=== PATIENT | female | born 1960 | race Asian ===

== ENCOUNTER 2020-11-12 12:03 | Emergency (ER) | payer MEDICAID ==
[~2020-11-12] VITALS: Ht 160 cm; Wt 43.1 kg
--- NOTE | 2020-11-12 12:27 | Emergency Room Report ---
History of Present Illness General Chief Complaint: Dyspnea/Respdistress Source: Medical Record, EMS (Chidi Go MD) Present Illness HPI Disclaimer: Please note that this report is being documented using DRAGON technology. This can lead to erroneous entry secondary to incorrect interpretation by the dictating instrument. HPI: Is a 60-year-old female history of ESRD on hemodialysis presenting by ambulance for dialysis treatment. The patient reportedly Covid positive and as a result of which has not gone to dialysis for 2 sessions. She reports mild tightness in the chest. No hypoxia noted. No other discomfort per patient. No reports of fever, vomiting or diarrhea. No other complaints at this time. 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 COVID-19 Screening: Positive COVID-19 COVID-19 Testing Source: [facility] (Chidi oG MD) Patient History Last Menstrual Period: na (Chidi Go MD) Nursing Documentation-PMH Past Medical History: No History, Except For Hx Hypertension: Yes Hx Dialysis: Yes (Chidi Go MD) Review of Systems All Other Systems: negative except mentioned in HPI (Chidi Go MD) Physical Exam Vital Signs Date Time Temp Pulse Resp B/P (MAP) Pulse Ox O2 Delivery O2 Flow Rate FiO2 11/12/20 12:03 97.5 78 22 200/98 (132) 98 Room Air General: Awake and alert, no acute distress, hypertensive HEENT: NC/AT. 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 S1 and S2 normal. No murmur appreciated Resp: Normal work of breathing. No cough, wheezing or crackles appreciated Abdomen: Abdomen is soft, nondistended. Nontender Skin: Intact. No abrasions, laceration or rash over the exposed skin MSK: Normal tone and bulk. Moving all extremities. No obvious deformity. Neuro: Awake and alert. Mentating appropriately. (Chidi Go MD) Medical Decision Making Diagnostic Impression: Primary Impression: ESRD on dialysis ER Course 60-year-old female history of ESRD on hemodialysis presents after missing 2 dialysis sessions. Patient reportedly Covid positive denies significant respiratory complaints at this time. She arrives hypertensive but in no acute distress. Nitropaste ordered. Will obtain labs and chest x-ray arrange for admission to obtain dialysis. Labs show potassium 5.1. BUN and creatinine elevated consistent with end-stage renal disease. Blood pressure improved after application of nitro paste. Chest x-ray does not show obvious infiltrate or significant vascular congestion. No effusions. Troponin negative. BNP elevated again consistent with ESRD. COVID- 19 rapid swab is negative today. Laboratory Tests Test 11/12/20 12:57 White Blood Count 7.5 K/UL (4.8-10.8) Red Blood Count 4.80 M/UL (4.20-5.40) Hemoglobin 10.1 G/DL (12.0-16.0) L Hematocrit 33.7 % (37.0-47.0) L Mean Corpuscular Volume 70 FL (80-99) L Mean Corpuscular Hemoglobin 21.0 PG (27.0-31.0) L Mean Corpuscular Hemoglobin Concent 29.9 G/DL (32.0-36.0) L Red Cell Distribution Width 22.0 % (11.6-14.8) H Platelet Count 157 K/UL (150-450) Mean Platelet Volume 9.5 FL (6.5-10.1) Neutrophils (%) (Auto) 75.5 % (45.0-75.0) H Lymphocytes (%) (Auto) 12.8 % (20.0-45.0) L Monocytes (%) (Auto) 7.3 % (1.0-10.0) Eosinophils (%) (Auto) 3.0 % (0.0-3.0) Basophils (%) (Auto) 1.4 % (0.0-2.0) Prothrombin Time 10.8 SEC (9.30-11.50) Prothrombin Time INR 1.0 (0.9-1.1) Activated Partial Thromboplast Time 32 SEC (23-33) Sodium Level 138 MMOL/L (136-145) Potassium Level 5.1 MMOL/L (3.5-5.1) Chloride Level 109 MMOL/L (98-107) H Carbon Dioxide Level 18 MMOL/L (21-32) L Anion Gap 11 mmol/L (5-15) Blood Urea Nitrogen 51 mg/dL (7-18) H Creatinine 3.6 MG/DL (0.55-1.30) H Estimated Glomerular Filtration Rate 12.9 mL/min (>60) Glucose Level 370 MG/DL (74-106) H Calcium Level 7.3 MG/DL (8.5-10.1) L Total Bilirubin 0.4 MG/DL (0.2-1.0) Aspartate Amino Transferase (AST) 32 U/L (15-37) Alanine Aminotransferase (ALT) 48 U/L (12-78) Alkaline Phosphatase 592 U/L (46-116) H Troponin I 0.002 ng/mL (0.000-0.056) Pro-B-Type Natriuretic Peptide 15109 pg/mL (0-125) H Total Protein 6.3 G/DL (6.4-8.2) L Albumin 2.0 G/DL (3.4-5.0) L Globulin 4.3 g/dL Albumin/Globulin Ratio 0.5 (1.0-2.7) L Microbiology Date/Time Source Procedure Growth Status 11/12/20 12:57 Nasopharynx SARS-CoV-2 RdRp Gene Assay - Final Complete (Chidi Go MD) ER Course Hospital Course 60-year-old female referred for dialysis. Missed 2 dialysis sessions. Recently diagnosed with Covid Patient initially seen and evaluated by Dr go; please see his note for full history and physical Clinical course labs reviewed- BUN/Cr elevated. K 5.1. no leukocytosis, hemoglobin/hematocrit stable trop negative EKG - NSR no acute ischemic changes interpreted by me Chest [id number], no fluid overload, dialysis catheter in chest Rapid Covid negative discussed with PMD from facility. Agrees that patient does not require admission at this time. In light of current pandemic it would be beneficial to discharge patient back to facility and she will receive dialysis in outpatient setting. I agree with this assessment I. I feel this is a highly complex case requiring extensive working including EKG/Rhythm strip, Xray/CT/US, Blood/urine lab work, repeat exams while in ED, and administration of strong opiates/narcotics for pain control, admission to hospital or close patient follow up. Diagnosis -ESRD on dialysis discharged to assisted living. f/u PMD. return to ED if symptoms recur/worsen Laboratory Tests Test 11/12/20 12:57 White Blood Count 7.5 K/UL (4.8-10.8) Red Blood Count 4.80 M/UL (4.20-5.40) Hemoglobin 10.1 G/DL (12.0-16.0) L Hematocrit 33.7 % (37.0-47.0) L Mean Corpuscular Volume 70 FL (80-99) L Mean Corpuscular Hemoglobin 21.0 PG (27.0-31.0) L Mean Corpuscular Hemoglobin Concent 29.9 G/DL (32.0-36.0) L Red Cell Distribution Width 22.0 % (11.6-14.8) H Platelet Count 157 K/UL (150-450) Mean Platelet Volume 9.5 FL (6.5-10.1) Neutrophils (%) (Auto) 75.5 % (45.0-75.0) H Lymphocytes (%) (Auto) 12.8 % (20.0-45.0) L Monocytes (%) (Auto) 7.3 % (1.0-10.0) Eosinophils (%) (Auto) 3.0 % (0.0-3.0) Basophils (%) (Auto) 1.4 % (0.0-2.0) Prothrombin Time 10.8 SEC (9.30-11.50) Prothromb Time International Ratio 1.0 (0.9-1.1) Activated Partial Thromboplast Time 32 SEC (23-33) Sodium Level 138 MMOL/L (136-145) Potassium Level 5.1 MMOL/L (3.5-5.1) Chloride Level 109 MMOL/L (98-107) H Carbon Dioxide Level 18 MMOL/L (21-32) L Anion Gap 11 mmol/L (5-15) Blood Urea Nitrogen 51 mg/dL (7-18) H Creatinine 3.6 MG/DL (0.55-1.30) H Estimat Glomerular Filtration Rate 12.9 mL/min (>60) Glucose Level 370 MG/DL (74-106) H Calcium Level 7.3 MG/DL (8.5-10.1) L Total Bilirubin 0.4 MG/DL (0.2-1.0) Aspartate Amino Transf (AST/SGOT) 32 U/L (15-37) Alanine Aminotransferase (ALT/SGPT) 48 U/L (12-78) Alkaline Phosphatase 592 U/L (46-116) H Troponin I 0.002 ng/mL (0.000-0.056) Pro-B-Type Natriuretic Peptide 04561 pg/mL (0-125) H Total Protein 6.3 G/DL (6.4-8.2) L Albumin 2.0 G/DL (3.4-5.0) L Globulin 4.3 g/dL Albumin/Globulin Ratio 0.5 (1.0-2.7) L (Romario Atkinson MD) EKG Diagnostic Results Troponin ordered: Yes When was troponin ordered?: Nov 12, 2020 EKG Time: 12:54 Rate: normal Rhythm: NSR ST Segments: no acute changes Other Impression Sinus rhythm, normal axis, normal intervals, no ST segment changes. No hyperacute T waves noted (Chidi Go MD) Troponin ordered: Yes Rate: normal Rhythm: NSR ST Segments: no acute changes ASA given to the pt in ED: No (Romario Atkinson MD) Rhythm Strip Diag. Results Rhythm Strip Time: 12:54 EP Interpretation: yes Rate: 60s Rhythm: NSR, no PVC's, no ectopy (Chidi Go MD) EP Interpretation: yes Rhythm: NSR, no PVC's, no ectopy (Romario Atkinson MD) Chest X-Ray Diagnostic Results Chest X-Ray Diagnostic Results : Chest X-Ray Ordered: Yes # of Views/Limited/Complete: 1 View Indication: Chest Pain EP Interpretation: Yes Interpretation: no consolidation, no effusion, no pneumothorax, no acute cardiopulmonary disease, other - Dialysis catheter right chest appears in place Impression: No acute disease Electronically Signed by: Electronically signed by Dr. Chidi Go MD (Chidi Go MD) Chest X-Ray Diagnostic Results : Chest X-Ray Ordered: Yes # of Views/Limited/Complete: 1 View Indication: Other EP Interpretation: Yes Interpretation: no consolidation, no effusion, no pneumothorax, no acute cardiopulmonary disease, other - dialysis catheter in chest Impression: No acute disease Electronically Signed by: Electronically signed by Romario Atkinson MD (Romario Atkinson MD) Last Vital Signs Date Time Temp Pulse Resp B/P (MAP) Pulse Ox O2 Delivery O2 Flow Rate FiO2 11/12/20 12:03 97.5 78 22 200/98 (132) 98 Room Air (Chidi Go MD) Status: improved (Romario Atkinson MD) Disposition: ASSISTED LIVING Condition: Stable Chidi Go MD Nov 12, 2020 12:27 Romario Atkinson MD Nov 12, 2020 18:25
[2020-11-12] MEDS ORDERED: Nitroglycerin 2% oint pkt TOPIC ONE (12:30)
[2020-11-12] MEDS ORDERED: DOCUSATE SODIU100 MG ORAL (12:34)
[2020-11-12] MEDS ORDERED: LIDODERM700 M1 TOPIC (12:34)
[2020-11-12] MEDS ORDERED: TRAZODONE HCL50 MG ORAL (12:34)
[2020-11-12] MEDS ORDERED: LACTULOSE20 GM/301 ORAL (12:34)
[2020-11-12] MEDS ORDERED: NEPHROVITE1 TAB ORAL (12:34)
[2020-11-12] MEDS ORDERED: GABAPENTIN100 MG ORAL (12:34)
[2020-11-12] MEDS ORDERED: CRANBERRY400 MG PO (12:34)
[2020-11-12] MEDS ORDERED: PANTOPRAZOLE SO40 MG ORAL (12:34)
[2020-11-12] MEDS ORDERED: SYNTHROID88 MCG ORAL (12:34)
[2020-11-12] MEDS ORDERED: NORCO 5-325 TA1 EAC1 ORAL (12:34)
--- NOTE | 2020-11-12 12:40 | NUR ---
ED Nurse Note: Pt brought by BLS due to missing dialysis. pt is A&O3, verbal , and awake. pt last dialysis was since 11/06/2020. pt is covid + in the shelter. Pt has no sob, fever, and cough at the moment. pt is on monitor; vitals are stable. Iv established; blood sent to the lab.
[2020-11-12 13:13] LABS: BASOPHILS % (AUTO) 1.4 % (0.0-2.0); HEMATOCRIT 33.7 % (37.0-47.0); HEMOGLOBIN 10.1 G/DL (12.0-16.0); LYMPHOCYTES % (AUTO) 12.8 % (20.0-45.0); MEAN CORPUSCULAR VOLUME 70 FL (80-99); MONOCYTES % (AUTO) 7.3 % (1.0-10.0); NEUTROPHILS % (AUTO) 75.5 % (45.0-75.0); PLATELET COUNT 157 K/UL (150-450); WHITE BLOOD COUNT 7.5 K/UL (4.8-10.8)
[2020-11-12 13:22] VITALS: BP 173/98
[2020-11-12 13:28] LABS: CALCIUM 7.3 MG/DL (8.5-10.1); CREATININE 3.6 MG/DL (0.55-1.30); POTASSIUM 5.1 MMOL/L (3.5-5.1)
[2020-11-12 13:38] LABS: ALBUMIN/GLOBULIN RATIO 0.5 (1.0-2.7); BILIRUBIN,TOTAL 0.4 MG/DL (0.2-1.0)
[2020-11-12] MEDS ORDERED: Insulin Human Regular 100units/ml 3ml IV ONE (14:00)
--- NOTE | 2020-11-12 16:12 | NUR ---
ED Nurse Note: REPORT GIVEN TO MICH TSE
--- NOTE | 2020-11-12 17:05 | Diagnostic Imaging Report ---
Indication: Shortness of breath Technique: One view of the chest Comparison: none Findings: Lung and pleural spaces are clear. The heart is upper limits of normal in size. There is a right jugular tunneled dialysis catheter. Impression: No acute process
[2020-11-12 19:58] VITALS: BP 164/93
--- NOTE | 2020-11-12 20:00 | NUR ---
ED Nurse Note: pt resting in room awaiting trasnport back to [facility]. pt care assummed. pt denies increased dyspnea or new c/o tolerates htn meds well.
[2020-11-12 22:06] VITALS: BP 158/71
--- NOTE | 2020-11-12 22:08 | NUR ---
Note amyone in EDM - 11/12/20 at 2211 by CHANDLER ED Nurse Note: Pt cleared by health care Provider for discharge. DC instructions/prescription was given and explained to pt and verbalized understanding of teachings. All medical devices such as ID band removed. Pt is AAO x4, ambulatory and left with all personal belongings.
--- NOTE | 2020-11-12 22:11 | NUR ---
ED Nurse Note: Pt cleared by health care Provider for discharge. DC instructions/prescription was given and explained to pt and verbalized understanding of teachings. All medical devices such as ID band removed. Pt is alert upon dc back to [facility].
== END 2020-11-12 22:15 | disposition home or self-care (01) ==
LOC: EDBD → EMR 12:41
DX: I12.0 Hypertensive chronic kidney disease with stage 5 chronic kidney disease or end stage renal disease (principal); N18.6 End stage renal disease; Z99.2 Dependence on renal dialysis; Z88.5 Allergy status to narcotic agent; Z88.6 Allergy status to analgesic agent; Z86.16 Personal history of COVID-19
CPT/HCPCS: 36415; 71045; 80053; 83880; 84484; 85025; 85610; 85730; 93005; 96374; 96375; 96376; J0360; J1815; U0002; Z7502; 99284

== ENCOUNTER 2020-11-14 10:24 | Inpatient (IN) | payer MEDICAID ==
[~2020-11-14] VITALS: Ht 160 cm; Wt 40.8 kg
[~2020-11-14 10:24] MED LIST: CRANBERRY400 MG PO; DOCUSATE SODIU100 MG ORAL; GABAPENTIN100 MG ORAL; LACTULOSE20 GM/301 ORAL; LIDODERM700 M1 TOPIC; NEPHROVITE1 TAB ORAL; NORCO 5-325 TA1 EAC1 ORAL; PANTOPRAZOLE SO40 MG ORAL; SYNTHROID88 MCG ORAL; TRAZODONE HCL50 MG ORAL
[2020-11-14 10:27] VITALS: BP 234/110
--- NOTE | 2020-11-14 10:27 | NUR ---
ED Nurse Note: Pt BIBA RA58 from [facility] c/o SOB and hypotension. Per EMS, Pt was desatting to 88% RA, placed on NRB 15L, O2 improved to 94%. BP at the scene was 76/43. Pt was tested positive for Covid last 10/26/20. Pt missed her dialysis today, noted with permacath on right upper chest. AAox4, verbally responsive. Afebrile. Placed on whitewasher. ERMD at bedside. Isolation precaution is in place.
[2020-11-14] MEDS ORDERED: TRAMADOL HCL50 MG ORAL (10:36)
[2020-11-14] MEDS ORDERED: DULCOLAX10 MG RC (10:36)
[2020-11-14] MEDS ORDERED: MILK OF MA400 MG/51 ORAL (10:36)
[2020-11-14] MEDS ORDERED: ASPIRIN81 MG ORAL (10:38)
[2020-11-14] MEDS ORDERED: MIDODRINE HCL5 MG ORAL (10:40)
[2020-11-14] MEDS ORDERED: ADALAT20 MG ORAL (10:40)
--- NOTE | 2020-11-14 10:43 | Emergency Room Report ---
History of Present Illness General Chief Complaint: Dyspnea/Respdistress Source: Medical Record (Anita Mckeon DO) Present Illness HPI patient presents by paramedics from SNF with reports of hypotension and missed dialysis patient herself is a difficult historian and HPI remains limited appears patient wad diagnosed with covid 10/26 and transferred to facility after stabilization no reports of vomiting or diarrhea pt due for dialysis today unknown regarding fever or cough (Anita Mckeon DO) Allergies: Coded Allergies: ACETAMINOPHEN (Verified Allergy, Unknown, 11/12/20) MORPHINE (Verified Allergy, Unknown, 11/12/20) COVID-19 Screening Contact w/high risk pt: No Experienced COVID-19 symptoms?: Yes 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-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 COVID-19 Screening: Positive COVID-19 COVID-19 Testing Source: [facility] (Anita Mckeon DO) Patient History Limited by: medical condition Past Medical History: see triage record Pertinent Family History: unable to obtain Reviewed Nursing Documentation: PMH: Agreed; PSxH: Agreed (Anita Mckeon DO) Nursing Documentation-PMH Past Medical History: No History, Except For Hx Hypertension: Yes Hx Dialysis: Yes (Anita Mckeon DO) Review of Systems All Other Systems: limited Narrative limited secondary to patient ability to provide appropriate history (Anita Mckeon DO) Physical Exam Vital Signs Date Time Temp Pulse Resp B/P (MAP) Pulse Ox O2 Delivery O2 Flow Rate FiO2 11/14/20 10:20 99.1 104 24 76/43 (54) 94 Non-Rebreather 15.0 Sp02 EP Interpretation: reviewed, normal General Appearance: no apparent distress Head: normocephalic, atraumatic Eyes: bilateral eye PERRL, bilateral eye EOMI ENT: hearing grossly normal, EOM grossly intact Neck: supple Respiratory: no respiratory distress, no retraction, other - fine crackles both lower lobes Cardiovascular #1: regular rate, rhythm, no edema Gastrointestinal: non tender, soft Genitourinary: no CVA tenderness Musculoskeletal: other - moving both upper extremity equally Neurologic: other - patient is awake, responsive, but agitated and not following commands Psychiatric: anxious Skin: no rash, palpation normal Lymphatic: no adenopathy (Anita Mckeon DO) Procedures Critical Care Time Critical Care Time 50 minutes critical care, concerning presentation concern for cardiopulmonary arrest and respiratory failure multiple reevaluations not including procedural time (Anita Mckeon DO) Medical Decision Making Diagnostic Impression: Primary Impression: ESRD on dialysis Additional Impressions: COVID-19 SOB (shortness of breath) ER Course Patient is a fairly complex patient with multiple differential to consideration including but not limited to cardiac cardiopulmonary and vascular emergencies Given the current circumstances COVID-19 also considered Patient's test is positive and x-ray does show patchy infiltrates bilaterally Patient has been diagnosed previously with Covid at this time remains hypertensive And required acute intervention and admitted for further care Labs Test 11/14/20 10:50 11/15/20 04:30 White Blood Count 9.9 K/UL (4.8-10.8) 6.2 K/UL (4.8-10.8) Red Blood Count 4.53 M/UL (4.20-5.40) 4.34 M/UL (4.20-5.40) Hemoglobin 9.6 G/DL (12.0-16.0) 9.2 G/DL (12.0-16.0) Hematocrit 32.0 % (37.0-47.0) 30.4 % (37.0-47.0) Mean Corpuscular Volume 71 FL (80-99) 70 FL (80-99) Mean Corpuscular Hemoglobin 21.1 PG (27.0-31.0) 21.2 PG (27.0-31.0) Mean Corpuscular Hemoglobin Concent 29.9 G/DL (32.0-36.0) 30.2 G/DL (32.0-36.0) Red Cell Distribution Width 22.4 % (11.6-14.8) 21.6 % (11.6-14.8) Platelet Count 176 K/UL (150-450) 129 K/UL (150-450) Mean Platelet Volume 7.5 FL (6.5-10.1) 9.1 FL (6.5-10.1) Neutrophils (%) (Auto) 71.0 % (45.0-75.0) 73.9 % (45.0-75.0) Lymphocytes (%) (Auto) 16.6 % (20.0-45.0) 20.4 % (20.0-45.0) Monocytes (%) (Auto) 7.8 % (1.0-10.0) 1.3 % (1.0-10.0) Eosinophils (%) (Auto) 2.2 % (0.0-3.0) 0.1 % (0.0-3.0) Basophils (%) (Auto) 2.4 % (0.0-2.0) 4.3 % (0.0-2.0) Prothrombin Time 10.9 SEC (9.30-11.50) Prothromb Time International Ratio 1.0 (0.9-1.1) Activated Partial Thromboplast Time 26 SEC (23-33) Sodium Level 138 MMOL/L (136-145) 138 MMOL/L (136-145) Potassium Level 5.2 MMOL/L (3.5-5.1) 4.6 MMOL/L (3.5-5.1) Chloride Level 109 MMOL/L (98-107) 105 MMOL/L (98-107) Carbon Dioxide Level 17 MMOL/L (21-32) 27 MMOL/L (21-32) Anion Gap 12 mmol/L (5-15) 6 mmol/L (5-15) Blood Urea Nitrogen 48 mg/dL (7-18) 33 mg/dL (7-18) Creatinine 3.7 MG/DL (0.55-1.30) 3.0 MG/DL (0.55-1.30) Estimat Glomerular Filtration Rate 12.5 mL/min (>60) 16.0 mL/min (>60) Glucose Level 146 MG/DL (74-106) 108 MG/DL (74-106) Lactic Acid Level 0.50 mmol/L (0.4-2.0) Calcium Level 7.5 MG/DL (8.5-10.1) 7.2 MG/DL (8.5-10.1) Total Bilirubin 0.4 MG/DL (0.2-1.0) 0.8 MG/DL (0.2-1.0) Aspartate Amino Transf (AST/SGOT) 34 U/L (15-37) 23 U/L (15-37) Alanine Aminotransferase (ALT/SGPT) 44 U/L (12-78) 37 U/L (12-78) Alkaline Phosphatase 633 U/L (46-116) 574 U/L (46-116) Total Creatine Kinase 76 U/L (26-308) Creatine Kinase MB 4.3 NG/ML (0.0-3.6) Creatine Kinase MB Relative Index 5.6 Troponin I 0.012 ng/mL (0.000-0.056) 0.026 ng/mL (0.000-0.056) Pro-B-Type Natriuretic Peptide 87010 pg/mL (0-125) 88977 pg/mL (0-125) Total Protein 6.9 G/DL (6.4-8.2) 6.2 G/DL (6.4-8.2) Albumin 2.1 G/DL (3.4-5.0) 1.8 G/DL (3.4-5.0) Globulin 4.8 g/dL 4.4 g/dL Albumin/Globulin Ratio 0.4 (1.0-2.7) 0.4 (1.0-2.7) Lipase 42 U/L (73-393) D-Dimer 3.85 mg/L FEU (0.00-0.49) Hemoglobin A1c 5.3 % (4.3-6.0) Uric Acid 4.6 MG/DL (2.6-7.2) Phosphorus Level 5.5 MG/DL (2.5-4.9) Magnesium Level 2.0 MG/DL (1.8-2.4) Iron Level 100 ug/dL (50-175) Total Iron Binding Capacity 110 ug/dL (250-450) Percent Iron Saturation 91 % (15-50) Unsaturated Iron Binding 10 ug/dL (112-346) Ferritin 1496 NG/ML (8-388) Gamma Glutamyl Transpeptidase 257 U/L (5-85) Lactate Dehydrogenase 274 U/L (81-234) C-Reactive Protein, Quantitative 1.8 mg/dL (0.00-0.90) Triglycerides Level 65 MG/DL (30-150) Cholesterol Level 220 MG/DL (< 200) LDL Cholesterol 100 mg/dL (<100) HDL Cholesterol 86 MG/DL (40-60) Cholesterol/HDL Ratio 2.6 (3.3-4.4) Vitamin B12 Level 1743 PG/ML (193-986) Folate 37.2 NG/ML (8.6-58.9) Thyroid Stimulating Hormone (TSH) 2.613 uiU/mL (0.358-3.740) Free Thyroxine 1.10 NG/DL (0.76-1.46) Free Triiodothyronine 0.5 pg/mL (2.3-4.2) (Anita Mckeon DO) ER Course In summary 60-year-old female, presents with shortness of breath missed her dialysis, normally gets dialysis Wednesday, additionally has increasing shortness of breath also found to have COVID-19 patient will be admitted for supportive care and dialysis Laboratory Tests Test 11/14/20 10:50 White Blood Count 9.9 K/UL (4.8-10.8) Red Blood Count 4.53 M/UL (4.20-5.40) Hemoglobin 9.6 G/DL (12.0-16.0) L Hematocrit 32.0 % (37.0-47.0) L Mean Corpuscular Volume 71 FL (80-99) L Mean Corpuscular Hemoglobin 21.1 PG (27.0-31.0) L Mean Corpuscular Hemoglobin Concent 29.9 G/DL (32.0-36.0) L Red Cell Distribution Width 22.4 % (11.6-14.8) H Platelet Count 176 K/UL (150-450) Mean Platelet Volume 7.5 FL (6.5-10.1) Neutrophils (%) (Auto) 71.0 % (45.0-75.0) Lymphocytes (%) (Auto) 16.6 % (20.0-45.0) L Monocytes (%) (Auto) 7.8 % (1.0-10.0) Eosinophils (%) (Auto) 2.2 % (0.0-3.0) Basophils (%) (Auto) 2.4 % (0.0-2.0) H Prothrombin Time 10.9 SEC (9.30-11.50) Prothrombin Time INR 1.0 (0.9-1.1) Activated Partial Thromboplast Time 26 SEC (23-33) Sodium Level 138 MMOL/L (136-145) Potassium Level 5.2 MMOL/L (3.5-5.1) H Chloride Level 109 MMOL/L (98-107) H Carbon Dioxide Level 17 MMOL/L (21-32) L Anion Gap 12 mmol/L (5-15) Blood Urea Nitrogen 48 mg/dL (7-18) H Creatinine 3.7 MG/DL (0.55-1.30) H Estimated Glomerular Filtration Rate 12.5 mL/min (>60) Glucose Level 146 MG/DL (74-106) H Lactic Acid Level 0.50 mmol/L (0.4-2.0) Calcium Level 7.5 MG/DL (8.5-10.1) L Total Bilirubin 0.4 MG/DL (0.2-1.0) Aspartate Amino Transferase (AST) 34 U/L (15-37) Alanine Aminotransferase (ALT) 44 U/L (12-78) Alkaline Phosphatase 633 U/L (46-116) H Total Creatine Kinase 76 U/L (26-308) Creatine Kinase MB 4.3 NG/ML (0.0-3.6) H Creatine Kinase MB Relative Index 5.6 Troponin I 0.012 ng/mL (0.000-0.056) Pro-B-Type Natriuretic Peptide 18480 pg/mL (0-125) H Total Protein 6.9 G/DL (6.4-8.2) Albumin 2.1 G/DL (3.4-5.0) L Globulin 4.8 g/dL Albumin/Globulin Ratio 0.4 (1.0-2.7) L Lipase 42 U/L (73-393) L Microbiology Date/Time Source Procedure Growth Status 11/14/20 11:16 Nasal Nares - Final Complete 11/14/20 11:16 Nasal Nares - Final Complete 11/14/20 10:50 Nasopharynx SARS-CoV-2 RdRp Gene Assay - Final Complete (New Mi MD) EKG Diagnostic Results Rate: normal Rhythm: NSR ST Segments: other - non specific ST and T wave changes (Anita Mckeon DO) EKG Time: 10:59 EP Interpretation: NSR, rate 98, QTc 462, no acute ST elevations, normal axis (New Mi MD) Rhythm Strip Diag. Results EP Interpretation: yes Rate: 77 Rhythm: NSR, no PVC's, no ectopy (Anita Mckeon DO) Rhythm Strip Time: 15:33 EP Interpretation: yes Rate: 85 Rhythm: NSR, no PVC's, no ectopy (New Mi MD) Chest X-Ray Diagnostic Results Chest X-Ray Diagnostic Results : Chest X-Ray Ordered: Yes # of Views/Limited/Complete: 1 View Indication: Shortness of Breath EP Interpretation: Yes Interpretation: no effusion, no pneumothorax, other - bilateral patchy infiltrates effusions Impression: Other - Bilateral patchy infiltrates with effusion Electronically Signed by: Anita Mckeon DO (Anita Mckeon DO) Chest X-Ray Diagnostic Results : Chest X-Ray Ordered: Yes # of Views/Limited/Complete: 1 View Indication: Shortness of Breath EP Interpretation: Yes Interpretation: other - Acute interstitial disease Impression: Other - Acute interstitial disease Electronically Signed by: New Mi MD (New Mi MD) Last Vital Signs Date Time Temp Pulse Resp B/P (MAP) Pulse Ox O2 Delivery O2 Flow Rate FiO2 11/14/20 10:20 99.1 104 24 76/43 (54) 94 Non-Rebreather 15.0 Status: improved (Anita Mckeon DO) Disposition: ADMITTED INPATIENT Condition: Serious Anita Mckeon DO Nov 14, 2020 10:43 New iM MD Nov 14, 2020 15:34
--- NOTE | 2020-11-14 10:50 | NUR ---
ED Nurse Note: Iv line established. Blood and covid swab sent to lab.
[2020-11-14 11:17] LABS: BASOPHILS % (AUTO) 2.4 % (0.0-2.0); EOSINOPHILS % (AUTO) 2.2 % (0.0-3.0); HEMOGLOBIN 9.6 G/DL (12.0-16.0); LYMPHOCYTES % (AUTO) 16.6 % (20.0-45.0); MEAN CORPUSCULAR VOLUME 71 FL (80-99); MONOCYTES % (AUTO) 7.8 % (1.0-10.0); PLATELET COUNT 176 K/UL (150-450); RED BLOOD COUNT 4.53 M/UL (4.20-5.40); RED CELL DISTRIBUTION WIDTH 22.4 % (11.6-14.8); WHITE BLOOD COUNT 9.9 K/UL (4.8-10.8)
--- NOTE | 2020-11-14 11:26 | NUR ---
ED Nurse Note: Unable to provide urine at this time. Per pt, she makes little amount of urine.
--- NOTE | 2020-11-14 11:27 | NUR ---
ED Nurse Note: Xray at bedside.
[2020-11-14 11:41] LABS: CALCIUM 7.5 MG/DL (8.5-10.1); CREATININE 3.7 MG/DL (0.55-1.30); POTASSIUM 5.2 MMOL/L (3.5-5.1)
[2020-11-14 11:56] LABS: ALBUMIN 2.1 G/DL (3.4-5.0); ALBUMIN/GLOBULIN RATIO 0.4 (1.0-2.7); BILIRUBIN,TOTAL 0.4 MG/DL (0.2-1.0); CKMB 4.3 NG/ML (0.0-3.6)
[2020-11-14 12:13] VITALS: BP 189/98
--- NOTE | 2020-11-14 13:35 | Diagnostic Imaging Report ---
Indication: Shortness of breath Technique: One view of the chest Comparison: 11/12/2020 Findings: Interim development of bilateral interstitial disease. The pleural spaces are clear. The heart is enlarged. Right jugular tunneled dialysis catheter remains. Impression: Acute interstitial disease, developing since 11/12/2020. Appearance is nonspecific, may reflect bilateral infiltrates versus edema/fluid overload.
[2020-11-14 14:14] VITALS: BP 154/84
--- NOTE | 2020-11-14 14:14 | NUR ---
ED Nurse Note: Pt awake, alert and oriented. On 15L NRB, tolerating well. Cleaned the pt and changed the linen. Safety and comfort provided. Will cont to monitor.
--- NOTE | 2020-11-14 15:47 | Consultation ---
Consult Note Consult Note I am asked to evaluate the patient at the request of Dr. Carpenter for dialysis management Patient is 68-year-old female has end-stage renal disease on hemodialysis Presents to emergency room for shortness of breath and her dialysis days is today She is Covid test positive Emergency room note Chief Complaint: Dyspnea/Respdistress patient presents by paramedics from [facility] with reports of hypotension and missed dialysis patient herself is a difficult historian and HPI remains limited appears patient wad diagnosed with covid 10/26 and transferred to facility after stabilization no reports of vomiting or diarrhea pt due for dialysis today unknown regarding fever or cough Allergies: ACETAMINOPHEN (Verified Allergy, Unknown, 11/12/20) MORPHINE (Verified Allergy, Unknown, 11/12/20) COVID-19 Screening Contact w/high risk pt: No Experienced COVID-19 symptoms?: Yes COVID-19 Testing performed 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 COVID-19 Screening: Positive COVID-19 COVID-19 Testing Source: [employer] Past Medical History: No History, Except For Hx Hypertension: Yes Hx Dialysis: Yes, patient has a right jugular catheter All Other Systems: limited Narrative limited secondary to patient ability to provide appropriate history Vital Signs Date Time Temp Pulse Resp B/P (MAP) Pulse Ox O2 Delivery O2 Flow Rate FiO2 11/14/20 10:20 99.1 104 24 76/43 (54) 94 Non-Rebreather 15.0 Sp02 EP Interpretation: reviewed, normal PHYSICAL EXAMINATION: VITAL SIGNS: On admission, temperature 99.1, pulse of 104, respirations 24, blood pressure 76/43. GENERAL: The patient is a chronically ill-appearing, cachectic, malnutrition, answers questions with single word. HEAD AND NECK: Pupils are equal and reactive to light. Anicteric. Neck was supple. No JVD. LUNGS: Good air entry. Poor inspiratory effort. No wheeze or rhonchi. Decreased air in bases. HEART: S1, S2. Distant heart sounds. No murmur or gallop. The patient has a PermCath on the right side of chest wall. No sign of infection. ABDOMEN: Soft, nondistended, and nontender. Positive bowel sounds. EXTREMITIES: No cyanosis, clubbing, or edema. Muscle atrophy bilateral lower extremities NEUROLOGIC: Limited secondary to the patient's status. The patient is moving upper extremity, but lower extremities contracted. Cranial nerves II through XII was not able to be assessed due to the patient's status, unable to follow commands. RECTAL: Refused and deferred. : Refused and deferred. PSYCHIATRIC: Mood and affect is unable to obtain. LABORATORY AND DIAGNOSTIC DATA: On admission from the emergency department, WBC of 9.9, hemoglobin 9.6, hematocrit 32, platelets 176,000. Sodium 138, potassium 5.2, chloride 109, bicarb 17, BUN 48, creatinine 2.7. Glucose is 146. Calcium is 7. Total bilirubin of 0.4, AST of 34, ALT of 44, alkaline phosphatase is 633. ProBNP of 24,533. Total protein is 6.9, albumin is 2.1, Lipase is 42. PT of 10, INR 1.0, PTT of 26. D-dimer is 3.85. Rapid COVID test was done, positive. Chest x-ray, acute interstitial disease developing since November 12, 2020. Appearance is nonspecific, may reflect bilateral infiltrate versus edema, fluid overload. Impression: Acute interstitial disease, developing since 11/12/2020. Appearance is nonspecific, may reflect bilateral infiltrates versus edema/fluid overload. Assessment/Plan COVID-19, pneumonia Shortness of breath, hypoxia End-stage renal disease, right jugular dialysis catheter Low MCV anemia Hemodialysis and ultrafiltration 2D echocardiogram Keep the blood pressure blood sugar in check Anemia work-up COVID-19 pneumonia treatment per pulmonary Keep the blood pressure and blood sugar in check Edi Quintanilla MD Nov 14, 2020 15:47
--- NOTE | 2020-11-14 15:55 | NUR ---
ED Nurse Note: Report given to Nellie EPPS.
[2020-11-14 15:56] VITALS: BP 80/84
--- NOTE | 2020-11-14 15:57 | NUR ---
NURSE NOTES: Received report from BRITTANY Briseno RN. Awaiting pt in the unit. Recent labs, and MD report reviewed. Will continue with the plan of care.
--- NOTE | 2020-11-14 15:57 | NUR ---
Note amyone in ED - 11/14/20 at 1618 by CAIN TRANSFER TO FLOOR: Patient transferred to SDU floor. Pt AAOx4, verbally responsive. On 15L NRB, 100%. IV line on left hand 22g patent and intact. No skin issues. Swabs are sent. All belongings sent with the patient.
[2020-11-14 16:00] VITALS: BP 195/107
--- NOTE | 2020-11-14 17:10 | NUR ---
TRANSFER TO FLOOR: Patient transferred to SDU floor. Pt AAOx4, verbally responsive. On 15L NRB, 100%. IV line on left hand 22g patent and intact. No skin issues. Swabs are sent. All belongings sent with the patient.
--- NOTE | 2020-11-14 17:20 | NUR ---
NURSE NOTES: Pt arrived in the unit via gurney. Pt is awake, A/O x 4. On non-rebreather mask 15 L saturation 98-100%. Pt is anxious, fatigued, weak, and didn't want to be asked questions. Pt would rather rest and sleep. Blood pressure was elevated at 195/105, HR 88, RR 16. Blood pressure medication Amlodipine was held because pt is about to have hemodialysis. Recent labs, medication and MD orders reviewed. Bed is locked and in lowest position, bed alarm on, call light is with pt. Will continue to monitor pt. Will continue with the plan of care.
[2020-11-14] MEDS: Docusate 100mg cap ORAL SCH (18:07)
--- NOTE | 2020-11-14 19:05 | NUR ---
NURSE HAND-OFF REPORT: Important Events on Shift:New Admission Patient Status: Full code Diet: Renal Diet Pending Orders: N Pending Results/Labs:N Pending MD notification:N Latest Vital Signs: Temperature 98.6 , Pulse 86 , B/P 165 /102 , Respiratory Rate 16 , O2 SAT 100 , Non-Rebreather, O2 Flow Rate 15.0 . Vital Sign Comment: BP high, O2 sat 100%. EKG Rhythm: Sinus Rhythm Rhythm change?: N MD Notified?: - MD Response: Latest Rouse Fall Score: 10 Fall Risk: Low Risk Safety Measures: Call light Within Reach, Bed Alarm Zone 1, Side Rails Side Rails x2, Bed position Low and Locked. Fall Precautions: Yellow Socks Door Sign Patient Fall Education Report given to lizandro Sanchez RN.
--- NOTE | 2020-11-14 19:42 | NUR ---
NURSE NOTES: Received patient from MICH Ballard. AAOx3, able to verbalize needs. Patient appeared weak and fatigued, mostly verbalized wanting to sleep. On 15l nonrebreather, saturating well. IV site intact and flushed; Currently on hemodialysis. Bed in lowest position, brakes engaged and bed alarm on. Call light placed within reach. Will continue to monitor.
[2020-11-14 20:00] VITALS: BP 200/111
[2020-11-14] MEDS: TraZODone 50mg tab ORAL SCH (20:02)
--- NOTE | 2020-11-14 20:12 | NUR ---
NURSE NOTES: Pt weaned to nasal cannula 6L, saturating at 97-100%. Currently eating in high javed's. Will continue to monitor.
--- NOTE | 2020-11-14 21:05 | History & Physical ---
History and Physical History & Physicial Randy Carpenter MD Nov 14, 2020 21:05
[2020-11-14] MEDS: dexAMETHasone 10mg/ml Inj IV SCH (22:12)
[2020-11-15] VITALS: BP 178/87
--- NOTE | 2020-11-15 00:30 | NUR ---
NURSE NOTES: Pt on 4L nasal cannula with humidifier, saturating at 97-100%. Will continue to monitor.
--- NOTE | 2020-11-15 00:46 | NUR ---
NURSE NOTES: 2nd Clonidine 0.1mg PRN given due to SBP 178. Will continue to monitor.
[2020-11-15 04:00] VITALS: BP 179/96
[2020-11-15 05:29] LABS: BASOPHILS % (AUTO) 4.3 % (0.0-2.0); EOSINOPHILS % (AUTO) 0.1 % (0.0-3.0); HEMATOCRIT 30.4 % (37.0-47.0); HEMOGLOBIN 9.2 G/DL (12.0-16.0); LYMPHOCYTES % (AUTO) 20.4 % (20.0-45.0); MEAN CORPUSCULAR VOLUME 70 FL (80-99); MONOCYTES % (AUTO) 1.3 % (1.0-10.0); NEUTROPHILS % (AUTO) 73.9 % (45.0-75.0); PLATELET COUNT 129 K/UL (150-450); RED BLOOD COUNT 4.34 M/UL (4.20-5.40); RED CELL DISTRIBUTION WIDTH 21.6 % (11.6-14.8); WHITE BLOOD COUNT 6.2 K/UL (4.8-10.8)
[2020-11-15 06:14] LABS: ALANINE AMINOTRANSFERASE 37 U/L (12-78); ALBUMIN 1.8 G/DL (3.4-5.0); ALBUMIN/GLOBULIN RATIO 0.4 (1.0-2.7); ALKALINE PHOSPHATASE 574 U/L (46-116); ANION GAP 6 mmol/L (5-15); ASPARTATE AMINO TRANSFERASE 23 U/L (15-37); BILIRUBIN,TOTAL 0.8 MG/DL (0.2-1.0); BLOOD UREA NITROGEN 33 mg/dL (7-18); CALCIUM 7.2 MG/DL (8.5-10.1); CARBON DIOXIDE 27 MMOL/L (21-32); CHLORIDE 105 MMOL/L (98-107); CHOLESTEROL 220 MG/DL (< 200); FERRITIN 1496 NG/ML (8-388); GAMMA GLUTAMYL TRANSPEPTIDASE 257 U/L (5-85); HDL CHOLESTEROL 86 MG/DL (40-60); LACTATE DEHYDROGENASE 274 U/L (81-234); PHOSPHORUS 5.5 MG/DL (2.5-4.9); POTASSIUM 4.6 MMOL/L (3.5-5.1); SODIUM 138 MMOL/L (136-145); TRIGLYCERIDES 65 MG/DL (30-150)
[2020-11-15 06:50] LABS: % IRON SATURATION 91 % (15-50); IRON 100 ug/dL (50-175); TOTAL IRON BINDING CAPACITY 110 ug/dL (250-450)
--- NOTE | 2020-11-15 07:03 | NUR ---
NURSE NOTES: Received report from lizandro Sanchez RN. Pt is asleep, not in acute distress. On nasal canula saturating 98%. Vital signs are stable, BP is elevated. IV on L hand is intact and patent. Recent labs, medication and MD orders reviewed. Bed is locked and in lowest position, bed alarm on, call light is with the pt. Will continue to monitor the pt. Will continue with the plan of care
--- NOTE | 2020-11-15 07:06 | NUR ---
NURSE HAND-OFF REPORT: Important Events on Shift:[HD 2L out during the shift; SBP >170 clonidine given 3x.] Patient Status: [Full code] Diet: [Renal diet] Pending Orders: [] Pending Results/Labs:[2D echo] Pending MD notification:[] Latest Vital Signs: Temperature 97.5 , Pulse 71 , B/P 179 /96 , Respiratory Rate 20 , O2 SAT 100 , Non-Rebreather, O2 Flow Rate 4.0 . Vital Sign Comment: [] EKG Rhythm: Sinus Rhythm Rhythm change?: N MD Notified?: - MD Response: Latest Rouse Fall Score: 45 Fall Risk: High Risk Safety Measures: Call light Within Reach, Bed Alarm Zone 1, Side Rails Side Rails x2, Bed position Low and Locked. Fall Precautions: Yellow Socks Yellow Gown Door Sign Patient Fall Education Report given to [MICH Ballard].
[2020-11-15 08:00] VITALS: BP 156/95
[2020-11-15] MEDS: Lactulose 20gm/30ml UDC ORAL SCH (08:29)
[2020-11-15] MEDS: dexAMETHasone 10mg/ml Inj IV SCH (08:30)
[2020-11-15] MEDS: Docusate 100mg cap ORAL SCH ×3 (08:30→17:07)
[2020-11-15] MEDS: Aspirin Baby 81mg ORAL SCH (08:31)
--- NOTE | 2020-11-15 09:30 | NUR ---
NURSE NOTES: Initial assessment done. Vital signs are stable. Tolerating 4L O2 via nasal cannula saturating 100%. Morning medications administered per order. Pt is not in acute distress, ate breakfast with minimum assist. Pt requested to order tuna sandwich for lunch. Dietary informed. Will continue to monitor pt. Will continue with the plan of care.
--- NOTE | 2020-11-15 10:10 | NUR ---
NURSE NOTES: Informed Dr. Carpenter of Ca 7.2, Troponin 0.026, D-dimer 3.85, Free T3 0.5L, vit B12 1743. Awaiting response. Will continue to closely monitor pt.
--- NOTE | 2020-11-15 10:23 | Consultation ---
History of Present Illness General Date patient seen: Nov 15, 2020 Time patient seen: 09:45 Chief Complaint: Dyspnea/Respdistress Referring physician: Dr Carpenter Reason for Consultation: Present Illness HPI 61 years old female with past medical history of end-stage renal disease, on hemodialysis, hypertension, hypothyroidism, resident of intermediate facility, was brought to emergency room for evaluation due to shortness of breath and hypotension. n emergency department rapid COVID-19 was positive. Influenza swab was negative. Chest x-ray revealed acute interstitial disease , possibly reflecting bilateral infiltrates versus edema/fluid overload. Patient was tachypneic with respiratory rate 24 , hypotensive with blood p ressure 76/43 , hypoxic , requiring nonrebreather mask. Inflammatory marker revealed D-dimer 3.85, CRP 1.8, ferritin 1496. Laboratory work-up revealed BUN 48, creatinine 2.7 consistent with end-stage renal disease. Potassium 5.2. No leukocytosis, evidence of anemia. Patient by herself is a poor historian and unable to provide much of the information. She denies SOB, reports some chest discomfort with deep breathing and asking for pain relief. No cough. She is currently weaned off NRM and on 4L O2 via NC Pulmonary consult was requested to assist in management this patient Allergies: Coded Allergies: ACETAMINOPHEN (Verified Allergy, Unknown, 11/12/20) MORPHINE (Verified Allergy, Unknown, 11/12/20) Medication History Scheduled Aspirin* (Aspirin*), 81 MG ORAL DAILY, (Reported) Bisacodyl (Dulcolax), 10 MG RC PRN, (Reported) Docusate Sodium* (Docusate Sodium*), 100 MG ORAL TWICE A DAY, (Reported) Gabapentin* (Gabapentin*), 300 MG ORAL THREE TIMES A DAY, (Reported) Lactulose (Lactulose*), 30 ML ORAL DAILY, (Reported) Levothyroxine Sodium* (Synthroid*), 88 MCG ORAL DAILY, (Reported) Lidocaine Patch* (Lidoderm Patch*), 1 PATCH TOPIC DAILY, (Reported) Magnesium Hydroxide* (Milk Of Magnesia*), 30 ML ORAL BEDTIME, (Reported) Midodrine* (Proamatine*), 5 MG ORAL TWICE A DAY, (Reported) Nifedipine (Nifedipine*), 60 MG ORAL DAILY, (Reported) Pantoprazole* (Pantoprazole*), 40 MG ORAL DAILY, (Reported) Trazodone Hcl* (Desyrel*), 50 MG ORAL BEDTIME, (Reported) Vitamin B Cmplx/Vit C/Folic AC (Nephro-Elliot Tablet), 1 TAB ORAL DAILY, (Reported) Scheduled PRN Hydrocodone Bit/Acetaminophen 5-325* ([place] 5-325 Tablet*), 2 TAB ORAL Q8HR PRN for FOR PAIN, (Reported) Tramadol Hcl* (Ultram*), 50 MG ORAL Q6H PRN for For Pain, (Reported) Miscellaneous Medications Cranberry (Cranberry), 400 MG PO, (Reported) Patient History Healthcare decision maker Resuscitation status Full code Advanced Directive on File Review of Systems ROS Narrative unable to provide due to her medical condition Physical Exam General Appearance: cachetic - awake, chronically ill looking female in NAD Lines, tubes and drains: peripheral HEENT: normocephalic, atraumatic, anicteric, mucous membranes moist, other - 4 L O2 via NC Neck: non-tender, supple Respiratory/Chest: chest wall non-tender, no accessory muscle use, decreased breath sounds, other - R chest HD catheter in place Cardiovascular/Chest: normal rate, regular rhythm Abdomen: normal bowel sounds, non tender, soft Extremities: no calf tenderness, no edema Neurologic: abnormal gait - bedridden , alert, responsive Musculoskeletal: atrophy - BLE Last 24 Hour Vital Signs Date Time Temp Pulse Resp B/P (MAP) Pulse Ox O2 Delivery O2 Flow Rate FiO2 11/15/20 08:30 73 156/95 11/15/20 08:00 97.5 65 18 156/95 (115) 100 11/15/20 08:00 Nasal Cannula 4.0 11/15/20 08:00 4.0 11/15/20 08:00 71 11/15/20 04:58 179/96 11/15/20 04:00 Nasal Cannula 4.0 11/15/20 04:00 97.5 70 20 179/96 (123) 100 11/15/20 04:00 71 11/15/20 04:00 4.0 11/15/20 00:27 178/87 11/15/20 00:00 97.0 65 22 178/87 (117) 99 11/15/20 00:00 65 11/15/20 00:00 Nasal Cannula 4.0 11/14/20 20:02 223/130 11/14/20 20:00 96.4 90 20 200/111 (140) 99 11/14/20 20:00 5.0 11/14/20 20:00 90 11/14/20 20:00 Nasal Cannula 5.0 11/14/20 18:00 86 165/102 11/14/20 17:10 98.6 76 16 140/81 100 Non-Rebreather 15.0 11/14/20 16:00 Non-Rebreather 11/14/20 16:00 83 11/14/20 16:00 96.0 88 16 195/107 (136) 100 11/14/20 16:00 83 11/14/20 16:00 15.0 11/14/20 15:57 Non-Rebreather 15.0 11/14/20 15:56 98.6 84 15 80/84 100 Non-Rebreather 15.0 11/14/20 14:14 98.6 96 16 154/84 100 Non-Rebreather 15.0 11/14/20 12:50 222/109 11/14/20 12:13 98.6 94 15 189/98 98 Non-Rebreather 15.0 11/14/20 10:27 98.6 95 11 234/110 100 Non-Rebreather 15.0 11/14/20 10:27 95 11 Non-Rebreather 15.0 Intake and Output 11/14/20 11/15/20 19:00 07:00 Intake Total 500 ml Output Total 2000 ml Balance 500 ml -2000 ml IV Total 500 ml Output Hemodialysis UF 2000 ml # Bowel Movements 2 Laboratory Tests Test 11/14/20 10:50 11/15/20 04:30 White Blood Count 9.9 K/UL (4.8-10.8) 6.2 K/UL (4.8-10.8) Red Blood Count 4.53 M/UL (4.20-5.40) 4.34 M/UL (4.20-5.40) Hemoglobin 9.6 G/DL (12.0-16.0) L 9.2 G/DL (12.0-16.0) L Hematocrit 32.0 % (37.0-47.0) L 30.4 % (37.0-47.0) L Mean Corpuscular Volume 71 FL (80-99) L 70 FL (80-99) L Mean Corpuscular Hemoglobin 21.1 PG (27.0-31.0) L 21.2 PG (27.0-31.0) L Mean Corpuscular Hemoglobin Concent 29.9 G/DL (32.0-36.0) L 30.2 G/DL (32.0-36.0) L Red Cell Distribution Width 22.4 % (11.6-14.8) H 21.6 % (11.6-14.8) H Platelet Count 176 K/UL (150-450) 129 K/UL (150-450) L Mean Platelet Volume 7.5 FL (6.5-10.1) 9.1 FL (6.5-10.1) Neutrophils (%) (Auto) 71.0 % (45.0-75.0) 73.9 % (45.0-75.0) Lymphocytes (%) (Auto) 16.6 % (20.0-45.0) L 20.4 % (20.0-45.0) Monocytes (%) (Auto) 7.8 % (1.0-10.0) 1.3 % (1.0-10.0) Eosinophils (%) (Auto) 2.2 % (0.0-3.0) 0.1 % (0.0-3.0) Basophils (%) (Auto) 2.4 % (0.0-2.0) H 4.3 % (0.0-2.0) H Prothrombin Time 10.9 SEC (9.30-11.50) Prothromb Time International Ratio 1.0 (0.9-1.1) Activated Partial Thromboplast Time 26 SEC (23-33) Sodium Level 138 MMOL/L (136-145) 138 MMOL/L (136-145) Potassium Level 5.2 MMOL/L (3.5-5.1) H 4.6 MMOL/L (3.5-5.1) Chloride Level 109 MMOL/L (98-107) H 105 MMOL/L (98-107) Carbon Dioxide Level 17 MMOL/L (21-32) L 27 MMOL/L (21-32) Anion Gap 12 mmol/L (5-15) 6 mmol/L (5-15) Blood Urea Nitrogen 48 mg/dL (7-18) H 33 mg/dL (7-18) H Creatinine 3.7 MG/DL (0.55-1.30) H 3.0 MG/DL (0.55-1.30) H Estimat Glomerular Filtration Rate 12.5 mL/min (>60) 16.0 mL/min (>60) Glucose Level 146 MG/DL (74-106) H 108 MG/DL (74-106) H Lactic Acid Level 0.50 mmol/L (0.4-2.0) Calcium Level 7.5 MG/DL (8.5-10.1) L 7.2 MG/DL (8.5-10.1) L Total Bilirubin 0.4 MG/DL (0.2-1.0) 0.8 MG/DL (0.2-1.0) Aspartate Amino Transf (AST/SGOT) 34 U/L (15-37) 23 U/L (15-37) Alanine Aminotransferase (ALT/SGPT) 44 U/L (12-78) 37 U/L (12-78) Alkaline Phosphatase 633 U/L (46-116) H 574 U/L (46-116) H Total Creatine Kinase 76 U/L (26-308) Creatine Kinase MB 4.3 NG/ML (0.0-3.6) H Creatine Kinase MB Relative Index 5.6 Troponin I 0.012 ng/mL (0.000-0.056) 0.026 ng/mL (0.000-0.056) Pro-B-Type Natriuretic Peptide 81960 pg/mL (0-125) H 45421 pg/mL (0-125) H Total Protein 6.9 G/DL (6.4-8.2) 6.2 G/DL (6.4-8.2) L Albumin 2.1 G/DL (3.4-5.0) L 1.8 G/DL (3.4-5.0) L Globulin 4.8 g/dL 4.4 g/dL Albumin/Globulin Ratio 0.4 (1.0-2.7) L 0.4 (1.0-2.7) L Lipase 42 U/L (73-393) L D-Dimer 3.85 mg/L FEU (0.00-0.49) H Hemoglobin A1c 5.3 % (4.3-6.0) Uric Acid 4.6 MG/DL (2.6-7.2) Phosphorus Level 5.5 MG/DL (2.5-4.9) H Magnesium Level 2.0 MG/DL (1.8-2.4) Iron Level 100 ug/dL (50-175) Total Iron Binding Capacity 110 ug/dL (250-450) L Percent Iron Saturation 91 % (15-50) H Unsaturated Iron Binding 10 ug/dL (112-346) L Ferritin 1496 NG/ML (8-388) H Gamma Glutamyl Transpeptidase 257 U/L (5-85) H Lactate Dehydrogenase 274 U/L (81-234) H C-Reactive Protein, Quantitative 1.8 mg/dL (0.00-0.90) H Triglycerides Level 65 MG/DL (30-150) Cholesterol Level 220 MG/DL (< 200) H LDL Cholesterol 100 mg/dL (<100) HDL Cholesterol 86 MG/DL (40-60) H Cholesterol/HDL Ratio 2.6 (3.3-4.4) L Interleukin 6 (IL-6) Pending Vitamin B12 Level 1743 PG/ML (193-986) H Vitamin D 25-Hydroxy Pending 25-Hydroxy Vitamin D2 Pending 25-Hydroxy Vitamin D3 Pending Folate 37.2 NG/ML (8.6-58.9) Thyroid Stimulating Hormone (TSH) 2.613 uiU/mL (0.358-3.740) Free Thyroxine 1.10 NG/DL (0.76-1.46) Free Triiodothyronine 0.5 pg/mL (2.3-4.2) L Hepatitis B Surface Antigen Pending Microbiology Date/Time Source Procedure Growth Status 11/14/20 14:20 Rectum Received 11/14/20 11:16 Nasal Nares - Final Complete 11/14/20 11:16 Nasal Nares - Final Complete 11/14/20 10:50 Nasopharynx SARS-CoV-2 RdRp Gene Assay - Final Complete Height (Feet): 5 Height (Inches): 3.00 Weight (Pounds): 90 Medications Current Medications Medications (Trade) Dose Ordered Sig/Nisa Route PRN Reason Start Time Stop Time Status Last Admin Dose Admin Amlodipine Besylate (Norvasc) 5 mg BID ORAL 11/14/20 18:00 12/14/20 17:59 11/15/20 08:30 Aspirin (ASA) 81 mg DAILY ORAL 11/15/20 09:00 12/30/20 08:59 11/15/20 08:31 Bisacodyl (Dulcolax) 10 mg DAILYPRN PRN RECTAL constipation 11/14/20 16:00 02/12/21 15:59 Chlorhexidine Gluconate (Guera-Hex 2%) 1 applic DAILY@2000 TOPIC 11/15/20 20:00 02/13/21 19:59 Clonidine HCl (Catapres Tab) 0.1 mg Q4H PRN ORAL bp over 165 syst 11/14/20 16:00 02/12/21 15:59 11/15/20 04:58 Dexamethasone Sodium Phosphate (Decadron 10mg/ ml Inj) 6 mg DAILY IV 11/14/20 21:30 11/23/20 09:01 11/15/20 08:30 Docusate Sodium (Colace) 100 mg TID ORAL 11/14/20 18:00 12/14/20 17:59 11/15/20 08:30 Gabapentin (Neurontin) 300 mg THREE TIMES A DAY ORAL 11/14/20 18:00 12/14/20 17:59 11/15/20 08:30 Lactulose (Cephulac) 20 gm DAILY ORAL 11/15/20 09:00 12/15/20 08:59 11/15/20 08:29 Levothyroxine Sodium (Synthroid) 88 mcg DAILY@0630 ORAL 11/15/20 06:30 12/15/20 06:29 11/15/20 05:31 Pantoprazole (Protonix) 40 mg BID ORAL 11/14/20 18:00 12/14/20 17:59 11/15/20 08:30 Trazodone HCl (Desyrel) 50 mg BEDTIME ORAL 11/14/20 21:00 12/14/20 20:59 11/14/20 20:02 Assessment/Plan Assessment/Plan: ASSESSMENT COVID-19 pneumonia Acute hypoxemic respiratory failure 2/2 pneumonia- requiting NRM initially ESRD, on HD Hypotension, initially -resolved HTN Protein calorie malnutrition Hypoalbuminemia Anemia of chronic kidney disease Hypothyroidism PLAN OF CARE tele Date of sx onset: few days prior to presentation to ED Positive test: rapid COVID 19 11/14 + O2 4 L NC HFA Dex Day# 2 ( 11/14 -) Not a candidate for REM given renal failure DVT PPX: Lovenox D dimer Venous Duplex BLE Trend CRP abx per ID recs supportive care: vit A, D and zinc fup with imaging monitor volumes and renal function Fup with consultants recs FC Discuss GOC HD as per nephro recs BP management with current regimen and optimize further as needed continue levothyroxine, TSH WBL monitor HH with goal to keep Hgb above 7 dietary eval case discussed and evaluated by supervising physician Giselle Valentin NP Nov 15, 2020 10:23
--- NOTE | 2020-11-15 10:24 | Consultation ---
History of Present Illness General Date patient seen: Nov 15, 2020 Time patient seen: 10:22 Chief Complaint: Dyspnea/Respdistress Referring physician: Dr. Carpenter Reason for Consultation: COVID+ Present Illness HPI 61yo F who presents from SNF w/ hypotension and missed HD Per notes, pt was dx'd w/ COVID 10/26 Pt is AF, HDS in house with normal WBC, satting 100% on 4L NC Pt reports SOB and some chest pain (alerted RN, primary aware) Asking for water Lives at home w/ daughter Allergies: Coded Allergies: ACETAMINOPHEN (Verified Allergy, Unknown, 11/12/20) MORPHINE (Verified Allergy, Unknown, 11/12/20) Medication History Scheduled Aspirin* (Aspirin*), 81 MG ORAL DAILY, (Reported) Bisacodyl (Dulcolax), 10 MG RC PRN, (Reported) Docusate Sodium* (Docusate Sodium*), 100 MG ORAL TWICE A DAY, (Reported) Gabapentin* (Gabapentin*), 300 MG ORAL THREE TIMES A DAY, (Reported) Lactulose (Lactulose*), 30 ML ORAL DAILY, (Reported) Levothyroxine Sodium* (Synthroid*), 88 MCG ORAL DAILY, (Reported) Lidocaine Patch* (Lidoderm Patch*), 1 PATCH TOPIC DAILY, (Reported) Magnesium Hydroxide* (Milk Of Magnesia*), 30 ML ORAL BEDTIME, (Reported) Midodrine* (Proamatine*), 5 MG ORAL TWICE A DAY, (Reported) Nifedipine (Nifedipine*), 60 MG ORAL DAILY, (Reported) Pantoprazole* (Pantoprazole*), 40 MG ORAL DAILY, (Reported) Trazodone Hcl* (Desyrel*), 50 MG ORAL BEDTIME, (Reported) Vitamin B Cmplx/Vit C/Folic AC (Nephro-Elliot Tablet), 1 TAB ORAL DAILY, (Reported) Scheduled PRN Hydrocodone Bit/Acetaminophen 5-325* ([place] 5-325 Tablet*), 2 TAB ORAL Q8HR PRN for FOR PAIN, (Reported) Tramadol Hcl* (Ultram*), 50 MG ORAL Q6H PRN for For Pain, (Reported) Miscellaneous Medications Cranberry (Cranberry), 400 MG PO, (Reported) Patient History Limited by: medical condition Healthcare decision maker Resuscitation status Advanced Directive on File Review of Systems ROS Narrative Unable to assess 2/2 pt condition, poor historian Physical Exam Physical Exam Narrative Gen: NAD HEENT: NCAT Pulm: BL chest rise Abd: Soft, NTND Ext: No c/c/e Neuro: Awake Last 24 Hour Vital Signs Date Time Temp Pulse Resp B/P (MAP) Pulse Ox O2 Delivery O2 Flow Rate FiO2 11/15/20 08:30 73 156/95 11/15/20 08:00 97.5 65 18 156/95 (115) 100 11/15/20 08:00 Nasal Cannula 4.0 11/15/20 08:00 4.0 11/15/20 08:00 71 11/15/20 04:58 179/96 11/15/20 04:00 Nasal Cannula 4.0 11/15/20 04:00 97.5 70 20 179/96 (123) 100 11/15/20 04:00 71 11/15/20 04:00 4.0 11/15/20 00:27 178/87 11/15/20 00:00 97.0 65 22 178/87 (117) 99 11/15/20 00:00 65 11/15/20 00:00 Nasal Cannula 4.0 11/14/20 20:02 223/130 11/14/20 20:00 96.4 90 20 200/111 (140) 99 11/14/20 20:00 5.0 11/14/20 20:00 90 11/14/20 20:00 Nasal Cannula 5.0 11/14/20 18:00 86 165/102 11/14/20 17:10 98.6 76 16 140/81 100 Non-Rebreather 15.0 11/14/20 16:00 Non-Rebreather 11/14/20 16:00 83 11/14/20 16:00 96.0 88 16 195/107 (136) 100 11/14/20 16:00 83 11/14/20 16:00 15.0 11/14/20 15:57 Non-Rebreather 15.0 11/14/20 15:56 98.6 84 15 80/84 100 Non-Rebreather 15.0 11/14/20 14:14 98.6 96 16 154/84 100 Non-Rebreather 15.0 11/14/20 12:50 222/109 11/14/20 12:13 98.6 94 15 189/98 98 Non-Rebreather 15.0 11/14/20 10:27 98.6 95 11 234/110 100 Non-Rebreather 15.0 11/14/20 10:27 95 11 Non-Rebreather 15.0 Intake and Output 11/14/20 11/15/20 19:00 07:00 Intake Total 500 ml Output Total 2000 ml Balance 500 ml -2000 ml IV Total 500 ml Output Hemodialysis UF 2000 ml # Bowel Movements 2 Laboratory Tests Test 11/14/20 10:50 11/15/20 04:30 White Blood Count 9.9 K/UL (4.8-10.8) 6.2 K/UL (4.8-10.8) Red Blood Count 4.53 M/UL (4.20-5.40) 4.34 M/UL (4.20-5.40) Hemoglobin 9.6 G/DL (12.0-16.0) L 9.2 G/DL (12.0-16.0) L Hematocrit 32.0 % (37.0-47.0) L 30.4 % (37.0-47.0) L Mean Corpuscular Volume 71 FL (80-99) L 70 FL (80-99) L Mean Corpuscular Hemoglobin 21.1 PG (27.0-31.0) L 21.2 PG (27.0-31.0) L Mean Corpuscular Hemoglobin Concent 29.9 G/DL (32.0-36.0) L 30.2 G/DL (32.0-36.0) L Red Cell Distribution Width 22.4 % (11.6-14.8) H 21.6 % (11.6-14.8) H Platelet Count 176 K/UL (150-450) 129 K/UL (150-450) L Mean Platelet Volume 7.5 FL (6.5-10.1) 9.1 FL (6.5-10.1) Neutrophils (%) (Auto) 71.0 % (45.0-75.0) 73.9 % (45.0-75.0) Lymphocytes (%) (Auto) 16.6 % (20.0-45.0) L 20.4 % (20.0-45.0) Monocytes (%) (Auto) 7.8 % (1.0-10.0) 1.3 % (1.0-10.0) Eosinophils (%) (Auto) 2.2 % (0.0-3.0) 0.1 % (0.0-3.0) Basophils (%) (Auto) 2.4 % (0.0-2.0) H 4.3 % (0.0-2.0) H Prothrombin Time 10.9 SEC (9.30-11.50) Prothromb Time International Ratio 1.0 (0.9-1.1) Activated Partial Thromboplast Time 26 SEC (23-33) Sodium Level 138 MMOL/L (136-145) 138 MMOL/L (136-145) Potassium Level 5.2 MMOL/L (3.5-5.1) H 4.6 MMOL/L (3.5-5.1) Chloride Level 109 MMOL/L (98-107) H 105 MMOL/L (98-107) Carbon Dioxide Level 17 MMOL/L (21-32) L 27 MMOL/L (21-32) Anion Gap 12 mmol/L (5-15) 6 mmol/L (5-15) Blood Urea Nitrogen 48 mg/dL (7-18) H 33 mg/dL (7-18) H Creatinine 3.7 MG/DL (0.55-1.30) H 3.0 MG/DL (0.55-1.30) H Estimat Glomerular Filtration Rate 12.5 mL/min (>60) 16.0 mL/min (>60) Glucose Level 146 MG/DL (74-106) H 108 MG/DL (74-106) H Lactic Acid Level 0.50 mmol/L (0.4-2.0) Calcium Level 7.5 MG/DL (8.5-10.1) L 7.2 MG/DL (8.5-10.1) L Total Bilirubin 0.4 MG/DL (0.2-1.0) 0.8 MG/DL (0.2-1.0) Aspartate Amino Transf (AST/SGOT) 34 U/L (15-37) 23 U/L (15-37) Alanine Aminotransferase (ALT/SGPT) 44 U/L (12-78) 37 U/L (12-78) Alkaline Phosphatase 633 U/L (46-116) H 574 U/L (46-116) H Total Creatine Kinase 76 U/L (26-308) Creatine Kinase MB 4.3 NG/ML (0.0-3.6) H Creatine Kinase MB Relative Index 5.6 Troponin I 0.012 ng/mL (0.000-0.056) 0.026 ng/mL (0.000-0.056) Pro-B-Type Natriuretic Peptide 58988 pg/mL (0-125) H 99658 pg/mL (0-125) H Total Protein 6.9 G/DL (6.4-8.2) 6.2 G/DL (6.4-8.2) L Albumin 2.1 G/DL (3.4-5.0) L 1.8 G/DL (3.4-5.0) L Globulin 4.8 g/dL 4.4 g/dL Albumin/Globulin Ratio 0.4 (1.0-2.7) L 0.4 (1.0-2.7) L Lipase 42 U/L (73-393) L D-Dimer 3.85 mg/L FEU (0.00-0.49) H Hemoglobin A1c 5.3 % (4.3-6.0) Uric Acid 4.6 MG/DL (2.6-7.2) Phosphorus Level 5.5 MG/DL (2.5-4.9) H Magnesium Level 2.0 MG/DL (1.8-2.4) Iron Level 100 ug/dL (50-175) Total Iron Binding Capacity 110 ug/dL (250-450) L Percent Iron Saturation 91 % (15-50) H Unsaturated Iron Binding 10 ug/dL (112-346) L Ferritin 1496 NG/ML (8-388) H Gamma Glutamyl Transpeptidase 257 U/L (5-85) H Lactate Dehydrogenase 274 U/L (81-234) H C-Reactive Protein, Quantitative 1.8 mg/dL (0.00-0.90) H Triglycerides Level 65 MG/DL (30-150) Cholesterol Level 220 MG/DL (< 200) H LDL Cholesterol 100 mg/dL (<100) HDL Cholesterol 86 MG/DL (40-60) H Cholesterol/HDL Ratio 2.6 (3.3-4.4) L Interleukin 6 (IL-6) Pending Vitamin B12 Level 1743 PG/ML (193-986) H Vitamin D 25-Hydroxy Pending 25-Hydroxy Vitamin D2 Pending 25-Hydroxy Vitamin D3 Pending Folate 37.2 NG/ML (8.6-58.9) Thyroid Stimulating Hormone (TSH) 2.613 uiU/mL (0.358-3.740) Free Thyroxine 1.10 NG/DL (0.76-1.46) Free Triiodothyronine 0.5 pg/mL (2.3-4.2) L Hepatitis B Surface Antigen Pending Microbiology Date/Time Source Procedure Growth Status 11/14/20 14:20 Rectum Received 11/14/20 11:16 Nasal Nares - Final Complete 11/14/20 11:16 Nasal Nares - Final Complete 11/14/20 10:50 Nasopharynx SARS-CoV-2 RdRp Gene Assay - Final Complete Height (Feet): 5 Height (Inches): 3.00 Weight (Pounds): 90 Medications Current Medications Medications (Trade) Dose Ordered Sig/Nisa Route PRN Reason Start Time Stop Time Status Last Admin Dose Admin Amlodipine Besylate (Norvasc) 5 mg BID ORAL 11/14/20 18:00 12/14/20 17:59 11/15/20 08:30 Aspirin (ASA) 81 mg DAILY ORAL 11/15/20 09:00 12/30/20 08:59 11/15/20 08:31 Bisacodyl (Dulcolax) 10 mg DAILYPRN PRN RECTAL constipation 11/14/20 16:00 02/12/21 15:59 Chlorhexidine Gluconate (Guera-Hex 2%) 1 applic DAILY@1999 TOPIC 11/15/20 20:00 02/13/21 19:59 Clonidine HCl (Catapres Tab) 0.1 mg Q4H PRN ORAL bp over 165 syst 11/14/20 16:00 02/12/21 15:59 11/15/20 04:58 Dexamethasone Sodium Phosphate (Decadron 10mg/ ml Inj) 6 mg DAILY IV 11/14/20 21:30 11/23/20 09:01 11/15/20 08:30 Docusate Sodium (Colace) 100 mg TID ORAL 11/14/20 18:00 12/14/20 17:59 11/15/20 08:30 Gabapentin (Neurontin) 300 mg THREE TIMES A DAY ORAL 11/14/20 18:00 12/14/20 17:59 11/15/20 08:30 Lactulose (Cephulac) 20 gm DAILY ORAL 11/15/20 09:00 12/15/20 08:59 11/15/20 08:29 Levothyroxine Sodium (Synthroid) 88 mcg DAILY@0630 ORAL 11/15/20 06:30 12/15/20 06:29 11/15/20 05:31 Pantoprazole (Protonix) 40 mg BID ORAL 11/14/20 18:00 12/14/20 17:59 11/15/20 08:30 Trazodone HCl (Desyrel) 50 mg BEDTIME ORAL 11/14/20 21:00 12/14/20 20:59 11/14/20 20:02 Assessment/Plan Assessment/Plan: 61yo F with; COVD pneumonia Afebrile Normal WBC Lymphopenia 10/26 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 Appearance is nonspecific, may reflect bilateral infiltrates versus edema/fluid overload. Flu neg MRSA nares p ESRD on HD From SNF Plan: Cont dex 6mg daily #2/10 given desats Monitor off abx, doing well from resp standpoint and normal WBC Not candidate for RDV given ESRD Convalescent plasma not available at this institution and pt too far out from dx to benefit Monitor CBC/CMP Monitor resp status Monitor temp curve, hemodynamics D/w RN Thank you for this consult. [facility] will continue to follow. Cynthia Weems M.D. Nov 15, 2020 10:24
[2020-11-15] MEDS ORDERED: Albuterol 90mcg Inhaler 8gm INH PRN (10:45)
--- NOTE | 2020-11-15 10:45 | History and Physical Report ---
DATE OF ADMISSION: 11/14/2020 CHIEF COMPLAINT: Shortness of breath. HISTORY OF PRESENT ILLNESS: This is a 61-year-old very unfortunate female with past medical history significant for end-stage renal disease on hemodialysis, chronic anemia, and hypothyroidism, who presented to the hospital from [facility] after she was noted to be hypotensive, missing the dialysis. The patient's history is very limited secondary to the patient's status. She is a poor historian. Most of the history is taken from the ER chart. Noted the patient was diagnosed with COVID-19 on October 26, 2020 and was subsequently was transferred to the nursing facility, however, the patient was due for dialysis today and was not able to get dialyzed. Subsequently, the patient was transferred to [facility] for further evaluation and possible dialysis. PAST MEDICAL HISTORY/PAST SURGICAL HISTORY: As above, history of COVID-19 pneumonia, at this time the patient is COVID recovered, diagnosed on October 26, 2020; chronic end-stage renal disease, on hemodialysis; hypertension; hypothyroidism; severe protein-calorie malnutrition; anemia of chronic disease. MEDICATIONS: At home, please refer to medication reconciliation. ALLERGIES: Acetaminophen and morphine. SOCIAL HISTORY: No smoking, alcohol, or drugs. FAMILY HISTORY: Noncontributory. REVIEW OF SYSTEMS: Very limited secondary to the patient's status. No fever or chills was reported, shortness of breath. No hemoptysis or hematochezia. PHYSICAL EXAMINATION: VITAL SIGNS: On admission, temperature 99.1, pulse of 104, respirations 24, blood pressure 76/43. GENERAL: The patient is a chronically ill-appearing, cachectic, malnutrition, answers questions with single word. HEAD AND NECK: Pupils are equal and reactive to light. Anicteric. Neck was supple. No JVD. LUNGS: Good air entry. Poor inspiratory effort. No wheeze or rhonchi. Decreased air in bases. HEART: S1, S2. Distant heart sounds. No murmur or gallop. The patient has a PermCath on the right side of chest wall. No sign of infection. ABDOMEN: Soft, nondistended, and nontender. Positive bowel sounds. EXTREMITIES: No cyanosis, clubbing, or edema. Muscle atrophy bilateral lower extremities NEUROLOGIC: Limited secondary to the patient's status. The patient is moving upper extremity, but lower extremities contracted. Cranial nerves II through XII was not able to be assessed due to the patient's status, unable to follow commands. RECTAL: Refused and deferred. : Refused and deferred. PSYCHIATRIC: Mood and affect is unable to obtain. LABORATORY AND DIAGNOSTIC DATA: On admission from the emergency department, WBC of 9.9, hemoglobin 9.6, hematocrit 32, platelets 176,000. Sodium 138, potassium 5.2, chloride 109, bicarb 17, BUN 48, creatinine 2.7. Glucose is 146. Calcium is 7. Total bilirubin of 0.4, AST of 34, ALT of 44, alkaline phosphatase is 633. ProBNP of 24,533. Total protein is 6.9, albumin is 2.1, Lipase is 42. PT of 10, INR 1.0, PTT of 26. D-dimer is 3.85. Rapid COVID test was done, positive. Chest x-ray, acute interstitial disease developing since November 12, 2020. Appearance is nonspecific, may reflect bilateral infiltrate versus edema, fluid overload. ASSESSMENT: 1. End-stage renal disease, on hemodialysis. 2. Hyperkalemia. 3. COVID-I9 pneumonia, recovered. 4. Severe protein-calorie malnutrition. 5. Anemia of chronic kidney disease. 6. Hypotension. 7. Hypothyroidism. PLAN: Admit the patient to step-down. We will follow up with Dr. Edi Quintanilla, nephrology consultation as well as Dr. Roland Brink, Pulmonary Critical Care, and Dr. Cynthia Weems from Infectious Disease. We will monitor laboratory closely. Code status at this time is Full Code. DVT prophylaxis, heparin subcutaneous. We will resume usp medication and consider to start the patient on dialysis. Randy Carpenter M.D. DR: TITI JOB#: [id number] CC:
[2020-11-15 12:00] VITALS: BP 183/117
--- NOTE | 2020-11-15 12:00 | NUR ---
NURSE NOTES: Sponge bath given. Linens and gown changed. Pt had bowel movement. Turned and repositioned. Pt is assisted with lunch. Afternoon medications administered per order. BP remains elevated. PRN BP medication given. Will continue to closely monitor pt.
--- NOTE | 2020-11-15 12:56 | NUR ---
RD ASSESSMENT & RECOMMENDATIONS SEE CARE ACTIVITY FOR COMPLETE ASSESSMENT DAILY ESTIMATED NEEDS: Needs based on ESRD, HD, underweight/ 46kg 30-35 kcals/kg 3706-8764 total kcals 1.2-1.8 g protein/kg 55-83 g total protein Fluids per MD NUTRITION DIAGNOSIS: Increased kcal/prot intake needs R/T ESRD, underweight status as evidenced by pt is HD dep, pt is 88% IBW, BMI of 18.0, underweight BMI per guidelines. CURRENT DIET:Renal PO DIET RECOMMENDATIONS: RENAL, texture as tolerated ADDITIONAL RECOMMENDATIONS: * Daily calibrated bedscale wt * Monitor for continued good PO intake * Nephrovite x 1 * Nepro x 1 at this time, monitor need to increase (425kcal/19g prot) * Monitor phos, need for phos binders (elev phos 5.5)
--- NOTE | 2020-11-15 13:02 | Nephrology Progress Note ---
Assessment/Plan Problem List: (1) ESRD on dialysis (2) Hypertensive kidney disease (3) COVID-19 (4) SOB (shortness of breath) (5) Anemia in chronic kidney disease Assessment COVID-19, pneumonia Shortness of breath, hypoxia End-stage renal disease, right jugular dialysis catheter Low MCV anemia Plan November 15: Patient dialyzed last night. Labs reviewed. Patient complaining of chest tightness. Medication list reviewed. Blood pressure remains elevated at times. Will adjust blood pressure medication. Next hemodialysis again tomorrow. Previously: Hemodialysis and ultrafiltration 2D echocardiogram Keep the blood pressure blood sugar in check Anemia work-up COVID-19 pneumonia treatment per pulmonary Keep the blood pressure and blood sugar in check Subjective ROS Limited/Unobtainable: No Constitutional: Reports: malaise, weakness Objective Objective Last 24 Hour Vital Signs Date Time Temp Pulse Resp B/P (MAP) Pulse Ox O2 Delivery O2 Flow Rate FiO2 11/15/20 12:00 97.5 61 18 183/117 (139) 98 11/15/20 12:00 65 11/15/20 12:00 4.0 11/15/20 12:00 Nasal Cannula 4.0 11/15/20 11:29 186/96 11/15/20 08:30 73 156/95 11/15/20 08:00 97.5 65 18 156/95 (115) 100 11/15/20 08:00 Nasal Cannula 4.0 11/15/20 08:00 4.0 11/15/20 08:00 71 11/15/20 04:58 179/96 11/15/20 04:00 Nasal Cannula 4.0 11/15/20 04:00 97.5 70 20 179/96 (123) 100 11/15/20 04:00 71 11/15/20 04:00 4.0 11/15/20 00:27 178/87 11/15/20 00:00 97.0 65 22 178/87 (117) 99 11/15/20 00:00 65 11/15/20 00:00 Nasal Cannula 4.0 11/14/20 20:02 223/130 11/14/20 20:00 96.4 90 20 200/111 (140) 99 11/14/20 20:00 5.0 11/14/20 20:00 90 11/14/20 20:00 Nasal Cannula 5.0 11/14/20 18:00 86 165/102 11/14/20 17:10 98.6 76 16 140/81 100 Non-Rebreather 15.0 11/14/20 16:00 Non-Rebreather 11/14/20 16:00 83 11/14/20 16:00 96.0 88 16 195/107 (136) 100 11/14/20 16:00 83 11/14/20 16:00 15.0 11/14/20 15:57 Non-Rebreather 15.0 11/14/20 15:56 98.6 84 15 80/84 100 Non-Rebreather 15.0 11/14/20 14:14 98.6 96 16 154/84 100 Non-Rebreather 15.0 Intake and Output 11/14/20 11/15/20 19:00 07:00 Intake Total 500 ml Output Total 2000 ml Balance 500 ml -2000 ml IV Total 500 ml Output Hemodialysis UF 2000 ml # Bowel Movements 2 Current Medications Medications (Trade) Dose Ordered Sig/Nisa Route PRN Reason Start Time Stop Time Status Last Admin Dose Admin Albuterol Sulfate (Proventil MDI) 2 puff Q4H PRN INH Shortness of Breath 11/15/20 10:45 02/13/21 10:44 Amlodipine Besylate (Norvasc) 5 mg BID ORAL 11/14/20 18:00 12/14/20 17:59 11/15/20 08:30 Ascorbic Acid (Vitamin C) 500 mg TWICE A DAY ORAL 11/15/20 18:00 12/15/20 17:59 Aspirin (ASA) 81 mg DAILY ORAL 11/15/20 09:00 12/30/20 08:59 11/15/20 08:31 Bisacodyl (Dulcolax) 10 mg DAILYPRN PRN RECTAL constipation 11/14/20 16:00 02/12/21 15:59 Chlorhexidine Gluconate (Guera-Hex 2%) 1 applic DAILY@2000 TOPIC 11/15/20 20:00 02/13/21 19:59 Clonidine HCl (Catapres Tab) 0.1 mg Q4H PRN ORAL bp over 165 syst 11/14/20 16:00 02/12/21 15:59 11/15/20 11:29 Dexamethasone Sodium Phosphate (Decadron 10mg/ ml Inj) 6 mg DAILY IV 11/14/20 21:30 11/23/20 09:01 11/15/20 08:30 Docusate Sodium (Colace) 100 mg TID ORAL 11/14/20 18:00 12/14/20 17:59 11/15/20 12:06 Enoxaparin Sodium (Lovenox) 30 mg DAILY SUBQ 11/16/20 09:00 02/14/21 08:59 Gabapentin (Neurontin) 300 mg THREE TIMES A DAY ORAL 11/14/20 18:00 12/14/20 17:59 11/15/20 12:06 Lactulose (Cephulac) 20 gm DAILY ORAL 11/15/20 09:00 12/15/20 08:59 11/15/20 08:29 Levothyroxine Sodium (Synthroid) 88 mcg DAILY@0630 ORAL 11/15/20 06:30 12/15/20 06:29 11/15/20 05:31 Pantoprazole (Protonix) 40 mg BID ORAL 11/14/20 18:00 12/14/20 17:59 11/15/20 08:30 Trazodone HCl (Desyrel) 50 mg BEDTIME ORAL 11/14/20 21:00 12/14/20 20:59 11/14/20 20:02 Vitamin D (Vitamin D) 400 unit DAILY ORAL 11/16/20 09:00 12/16/20 08:59 Zinc Sulfate (Zinc Sulfate) 220 mg DAILY ORAL 11/16/20 09:00 02/14/21 08:59 Laboratory Tests 11/15/20 04:30: White Blood Count 6.2, Red Blood Count 4.34, Hemoglobin 9.2L, Hematocrit 30.4L, Mean Corpuscular Volume 70L, Mean Corpuscular Hemoglobin 21.2L, Mean Corpuscular Hemoglobin Concent 30.2L, Red Cell Distribution Width 21.6H, Platelet Count 129L , Mean Platelet Volume 9.1, Neutrophils (%) (Auto) 73.9, Lymphocytes (%) (Auto) 20.4, Monocytes (%) (Auto) 1.3, Eosinophils (%) (Auto) 0.1, Basophils (%) (Auto) 4.3H, D-Dimer 3.85H, Sodium Level 138, Potassium Level 4.6, Chloride Level 105, Carbon Dioxide Level 27, Anion Gap 6, Blood Urea Nitrogen 33H, Creatinine 3.0H, Estimat Glomerular Filtration Rate 16.0, Glucose Level 108H, Hemoglobin A1c 5.3, Uric Acid 4.6, Calcium Level 7.2L, Phosphorus Level 5.5H, Magnesium Level 2.0, Iron Level 100, Total Iron Binding Capacity 110L, Percent Iron Saturation 91H, Unsaturated Iron Binding 10L, Ferritin 1496H, Total Bilirubin 0.8, Gamma Glutamyl Transpeptidase 257H, Aspartate Amino Transf (AST/SGOT) 23, Alanine Aminotransferase (ALT/SGPT) 37, Alkaline Phosphatase 574H, Lactate Dehydrogenase 274H, Troponin I 0.026, C-Reactive Protein, Quantitative 1.8H, Pro-B-Type Natriuretic Peptide 46833H, Total Protein 6.2L, Albumin 1.8L, Globulin 4.4, Albumin/Globulin Ratio 0.4L, Triglycerides Level 65, Cholesterol Level 220H, LDL Cholesterol 100, HDL Cholesterol 86H, Cholesterol/HDL Ratio 2.6L, Interleukin 6 (IL-6) [Pending], Vitamin B12 Level 1743H, Vitamin D 25-Hydroxy [Pending], 25- Hydroxy Vitamin D2 [Pending], 25-Hydroxy Vitamin D3 [Pending], Folate 37.2, Thyroid Stimulating Hormone (TSH) 2.613, Free Thyroxine 1.10, Free Triiodothyronine 0.5L, Hepatitis B Surface Antigen [Pending] Height (Feet): 5 Height (Inches): 3.00 Weight (Pounds): 90 General Appearance: no apparent distress, lethargic EENT: other - On nasal cannula Cardiovascular: normal rate Respiratory/Chest: decreased breath sounds Abdomen: distended Edi Quintanilla MD Nov 15, 2020 13:02
[2020-11-15] MEDS ORDERED: HydrALAZINE 50mg tab ORAL SCH (14:00)
[2020-11-15] MEDS: HydrALAZINE 50mg tab ORAL SCH ×2 (14:02→21:14)
--- NOTE | 2020-11-15 14:53 | NUR ---
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
--- NOTE | 2020-11-15 15:59 | Diagnostic Imaging Report ---
Indication: Reason For Exam: SOB Technique: Grayscale and duplex images of the bilateral lower extremity veins Comparison: Findings: Bilaterally, grayscale and duplex images demonstrate no evidence of intraluminal thrombus. Normal phasic Doppler waveforms, demonstrating normal augmentation response and no evidence of valvular insufficiency. Greater saphenous vein(s) and tibial veins are patent. Normal compressibility. Impression: Negative for evidence of lower extremity deep venous thrombosis bilaterally
[2020-11-15 16:00] VITALS: BP 167/83
--- NOTE | 2020-11-15 16:02 | Internal Med Progress Note ---
Subjective Physician Name Randy Carpenter Attending Physician Randy Carpenter MD Current Medications Medications (Trade) Dose Ordered Sig/Nisa Route PRN Reason Start Time Stop Time Status Last Admin Dose Admin Albuterol Sulfate (Proventil MDI) 2 puff Q4H PRN INH Shortness of Breath 11/15/20 10:45 02/13/21 10:44 Amlodipine Besylate (Norvasc) 5 mg BID ORAL 11/14/20 18:00 12/14/20 17:59 11/15/20 08:30 Ascorbic Acid (Vitamin C) 500 mg TWICE A DAY ORAL 11/15/20 18:00 12/15/20 17:59 Aspirin (ASA) 81 mg DAILY ORAL 11/15/20 09:00 12/30/20 08:59 11/15/20 08:31 Bisacodyl (Dulcolax) 10 mg DAILYPRN PRN RECTAL constipation 11/14/20 16:00 02/12/21 15:59 Chlorhexidine Gluconate (Guera-Hex 2%) 1 applic DAILY@2000 TOPIC 11/15/20 20:00 02/13/21 19:59 Clonidine HCl (Catapres Tab) 0.1 mg Q4H PRN ORAL bp over 165 syst 11/14/20 16:00 02/12/21 15:59 11/15/20 11:29 Dexamethasone Sodium Phosphate (Decadron 10mg/ ml Inj) 6 mg DAILY IV 11/14/20 21:30 11/23/20 09:01 11/15/20 08:30 Docusate Sodium (Colace) 100 mg TID ORAL 11/14/20 18:00 12/14/20 17:59 11/15/20 12:06 Enoxaparin Sodium (Lovenox) 30 mg DAILY SUBQ 11/16/20 09:00 02/14/21 08:59 Gabapentin (Neurontin) 300 mg THREE TIMES A DAY ORAL 11/14/20 18:00 12/14/20 17:59 11/15/20 12:06 Hydralazine HCl (Apresoline) 50 mg Q8HR ORAL 11/15/20 14:00 02/13/21 13:59 11/15/20 14:02 Lactulose (Cephulac) 20 gm DAILY ORAL 11/15/20 09:00 12/15/20 08:59 11/15/20 08:29 Levothyroxine Sodium (Synthroid) 88 mcg DAILY@0630 ORAL 11/15/20 06:30 12/15/20 06:29 11/15/20 05:31 Pantoprazole (Protonix) 40 mg BID ORAL 11/14/20 18:00 12/14/20 17:59 11/15/20 08:30 Trazodone HCl (Desyrel) 50 mg BEDTIME ORAL 11/14/20 21:00 12/14/20 20:59 11/14/20 20:02 Vitamin D (Vitamin D) 400 unit DAILY ORAL 11/16/20 09:00 12/16/20 08:59 Zinc Sulfate (Zinc Sulfate) 220 mg DAILY ORAL 11/16/20 09:00 02/14/21 08:59 Allergies: Coded Allergies: ACETAMINOPHEN (Verified Allergy, Unknown, 11/12/20) MORPHINE (Verified Allergy, Unknown, 11/12/20) Subjective awake, alert, more responsive, no acute distress. Objective Last Vital Signs Date Time Temp Pulse Resp B/P (MAP) Pulse Ox O2 Delivery O2 Flow Rate FiO2 11/15/20 14:02 175/89 11/15/20 12:00 97.5 61 18 98 11/15/20 12:00 4.0 11/15/20 12:00 Nasal Cannula Laboratory Tests Test 11/15/20 04:30 White Blood Count 6.2 K/UL (4.8-10.8) Red Blood Count 4.34 M/UL (4.20-5.40) Hemoglobin 9.2 G/DL (12.0-16.0) L Hematocrit 30.4 % (37.0-47.0) L Mean Corpuscular Volume 70 FL (80-99) L Mean Corpuscular Hemoglobin 21.2 PG (27.0-31.0) L Mean Corpuscular Hemoglobin Concent 30.2 G/DL (32.0-36.0) L Red Cell Distribution Width 21.6 % (11.6-14.8) H Platelet Count 129 K/UL (150-450) L Mean Platelet Volume 9.1 FL (6.5-10.1) Neutrophils (%) (Auto) 73.9 % (45.0-75.0) Lymphocytes (%) (Auto) 20.4 % (20.0-45.0) Monocytes (%) (Auto) 1.3 % (1.0-10.0) Eosinophils (%) (Auto) 0.1 % (0.0-3.0) Basophils (%) (Auto) 4.3 % (0.0-2.0) H D-Dimer 3.85 mg/L FEU (0.00-0.49) H Sodium Level 138 MMOL/L (136-145) Potassium Level 4.6 MMOL/L (3.5-5.1) Chloride Level 105 MMOL/L (98-107) Carbon Dioxide Level 27 MMOL/L (21-32) Anion Gap 6 mmol/L (5-15) Blood Urea Nitrogen 33 mg/dL (7-18) H Creatinine 3.0 MG/DL (0.55-1.30) H Estimat Glomerular Filtration Rate 16.0 mL/min (>60) Glucose Level 108 MG/DL (74-106) H Hemoglobin A1c 5.3 % (4.3-6.0) Uric Acid 4.6 MG/DL (2.6-7.2) Calcium Level 7.2 MG/DL (8.5-10.1) L Phosphorus Level 5.5 MG/DL (2.5-4.9) H Magnesium Level 2.0 MG/DL (1.8-2.4) Iron Level 100 ug/dL (50-175) Total Iron Binding Capacity 110 ug/dL (250-450) L Percent Iron Saturation 91 % (15-50) H Unsaturated Iron Binding 10 ug/dL (112-346) L Ferritin 1496 NG/ML (8-388) H Total Bilirubin 0.8 MG/DL (0.2-1.0) Gamma Glutamyl Transpeptidase 257 U/L (5-85) H Aspartate Amino Transf (AST/SGOT) 23 U/L (15-37) Alanine Aminotransferase (ALT/SGPT) 37 U/L (12-78) Alkaline Phosphatase 574 U/L (46-116) H Lactate Dehydrogenase 274 U/L (81-234) H Troponin I 0.026 ng/mL (0.000-0.056) C-Reactive Protein, Quantitative 1.8 mg/dL (0.00-0.90) H Pro-B-Type Natriuretic Peptide 34402 pg/mL (0-125) H Total Protein 6.2 G/DL (6.4-8.2) L Albumin 1.8 G/DL (3.4-5.0) L Globulin 4.4 g/dL Albumin/Globulin Ratio 0.4 (1.0-2.7) L Triglycerides Level 65 MG/DL (30-150) Cholesterol Level 220 MG/DL (< 200) H LDL Cholesterol 100 mg/dL (<100) HDL Cholesterol 86 MG/DL (40-60) H Cholesterol/HDL Ratio 2.6 (3.3-4.4) L Interleukin 6 (IL-6) Pending Vitamin B12 Level 1743 PG/ML (193-986) H Vitamin D 25-Hydroxy Pending 25-Hydroxy Vitamin D2 Pending 25-Hydroxy Vitamin D3 Pending Folate 37.2 NG/ML (8.6-58.9) Thyroid Stimulating Hormone (TSH) 2.613 uiU/mL (0.358-3.740) Free Thyroxine 1.10 NG/DL (0.76-1.46) Free Triiodothyronine 0.5 pg/mL (2.3-4.2) L Hepatitis B Surface Antigen Pending Microbiology Date/Time Source Procedure Growth Status 11/14/20 14:20 Rectum Received 11/14/20 11:16 Nasal Nares - Final Complete 11/14/20 11:16 Nasal Nares - Final Complete 11/14/20 10:50 Nasopharynx SARS-CoV-2 RdRp Gene Assay - Final Complete Intake and Output 11/14/20 11/15/20 19:00 07:00 Intake Total 500 ml Output Total 2000 ml Balance 500 ml -2000 ml IV Total 500 ml Output Hemodialysis UF 2000 ml # Bowel Movements 2 Objective GENERAL: awake, more responsive chronically ill-appearing, cachectic, malnutrition HEAD AND NECK: Pupils are equal and reactive to light. Anicteric. Neck was supple. No JVD. LUNGS: fair inspiratory effort, with decreased air at the bases, No wheeze or rhonchi. HEART: S1, S2. Distant heart sounds. No murmur or gallop. CHEST WALL: PermCath on the right side of chest wall. No sign of infection. ABDOMEN: Soft, nondistended, and nontender. Positive bowel sounds. EXTREMITIES: No cyanosis, clubbing, or edema. Muscle atrophy bilateral lower extremities NEUROLOGIC: WET WASHER MACHINE 2 through 12 grossly intact, motor 5/5 on all extremities. RECTAL: Refused and deferred. : Refused and deferred. PSYCHIATRIC: Mood and affect intact. Assessment/Plan Assessment/Plan 1. End-stage renal disease, on hemodialysis. 2. Hyperkalemia. 3. COVID-I9 pneumonia, recovered. 4. Severe protein-calorie malnutrition. 5. Anemia of chronic kidney disease. 6. Hypotension. 7. Hypothyroidism. PLAN: In step-down. Dr. Edi Quintanilla, nephrology consultation Dr. Roland Brink, Pulmonary Critical Care, Dr. Cynthia Weems from Infectious Disease. Monitor laboratory closely. Code status: Full Code. DVT prophylaxis: heparin subcutaneous. hemodialysis.. Randy Carpenter MD Nov 15, 2020 16:02
--- NOTE | 2020-11-15 17:08 | Consultation ---
History of Present Illness General Date patient seen: Nov 15, 2020 Reason for Hospitalization: Dyspnea/Respdistress Present Illness HPI 61-year-old female multimedical comorbidities end-stage renal disease on dialysis missed dialysis and presents [facility] for evaluation identified to have syncope abnormal labs including alk phos and abdominal distention. Surgery called to evaluate assist with care. Patient seen, patient evaluate, chart reviewed Allergies: Coded Allergies: ACETAMINOPHEN (Verified Allergy, Unknown, 11/12/20) MORPHINE (Verified Allergy, Unknown, 11/12/20) COVID-19 Screening Contact w/high risk pt: No Experienced COVID-19 symptoms?: Yes Coronavirus symptoms experienc: Shortness of Breath Medication History Scheduled Aspirin* (Aspirin*), 81 MG ORAL DAILY, (Reported) Bisacodyl (Dulcolax), 10 MG RC PRN, (Reported) Cranberry (Cranberry), 400 MG PO DAILY, (Reported) Docusate Sodium* (Docusate Sodium*), 100 MG ORAL TWICE A DAY, (Reported) Gabapentin* (Gabapentin*), 300 MG ORAL THREE TIMES A DAY, (Reported) Lactulose (Lactulose*), 30 ML ORAL DAILY, (Reported) Levothyroxine Sodium* (Synthroid*), 88 MCG ORAL DAILY, (Reported) Lidocaine Patch* (Lidoderm Patch*), 1 PATCH TOPIC DAILY, (Reported) Magnesium Hydroxide* (Milk Of Magnesia*), 30 ML ORAL BEDTIME, (Reported) Midodrine* (Proamatine*), 5 MG ORAL TWICE A DAY, (Reported) Nifedipine (Nifedipine*), 60 MG ORAL DAILY, (Reported) Pantoprazole* (Pantoprazole*), 40 MG ORAL DAILY, (Reported) Trazodone Hcl* (Desyrel*), 50 MG ORAL BEDTIME, (Reported) Vitamin B Cmplx/Vit C/Folic AC (Nephro-Elliot Tablet), 1 TAB ORAL DAILY, (Reported) Scheduled PRN Hydrocodone Bit/Acetaminophen 5-325* (Webster 5-325 Tablet*), 2 TAB ORAL Q8HR PRN for FOR PAIN, (Reported) Tramadol Hcl* (Ultram*), 50 MG ORAL Q8HR PRN for For Pain, (Reported) Patient History History Provided By: Patient, Medical Record, PMD Healthcare decision maker Resuscitation status Advanced Directive on File Past Medical/Surgical History Past Medical/Surgical History: (1) Dyspnea (2) Renal failure (3) SOB (shortness of breath) (4) ESRD on dialysis (5) COVID-19 (6) Hypertensive kidney disease (7) Anemia in chronic kidney disease Review of Systems Review of Symptoms General ROS: no weight loss or fever Psychological ROS: no depression or mood changes, no memory loss Ophthalmic ROS: no visual changes or eye irritation ENT ROS: no nasal congestion, hearing loss, dizziness Allergy and Immunology ROS: no allergic symptoms or urticaria Hematological and Lymphatic ROS: no swollen glands, unusual bleeding or bruising Endocrine ROS: no polyuria, polydipsia, weight changes, temperature intolerance Respiratory ROS: no cough, shortness of breath, or wheezing Cardiovascular ROS: no chest pain or dyspnea on exertion Gastrointestinal ROS: denies abdominal pain, bright red blood in stool. Musculoskeletal ROS: no myalgias or arthralgias Neurological ROS: no TIA or stroke symptoms Dermatological ROS: no new or changing skin lesions, rashes or pruritis Physical Exam Physical Exam General appearance: alert, cooperative, no distress, appears stated age Head: Normocephalic, without obvious abnormality, atraumatic Eyes: conjunctivae/corneas clear. PERRL, EOM's intact. Fundi benign Throat: Lips, mucosa, and tongue normal. Teeth and gums normal Neck: supple, symmetrical, trachea midline, no adenopathy, thyroid: not enlarged, symmetric, no tenderness/mass/nodules, no carotid bruit and no JVD Lungs: clear to auscultation bilaterally Heart: regular rate and rhythm, S1, S2 normal, no murmur, click, rub or gallop Abdomen: soft, non-tender. Bowel sounds normal. No masses, no organomegaly Extremities: extremities normal, atraumatic, no cyanosis or edema Pulses: 2+ and symmetric Skin: Skin color, texture, turgor normal. No rashes or lesions Neurologic: Grossly normal Last 24 Hour Vital Signs Date Time Temp Pulse Resp B/P (MAP) Pulse Ox O2 Delivery O2 Flow Rate FiO2 11/15/20 16:00 97.7 92 18 167/83 (111) 95 11/15/20 16:00 4.0 11/15/20 16:00 Nasal Cannula 4.0 11/15/20 14:02 175/89 11/15/20 12:00 97.5 61 18 183/117 (139) 98 11/15/20 12:00 65 11/15/20 12:00 4.0 11/15/20 12:00 Nasal Cannula 4.0 11/15/20 11:29 186/96 11/15/20 08:30 73 156/95 11/15/20 08:00 97.5 65 18 156/95 (115) 100 11/15/20 08:00 Nasal Cannula 4.0 11/15/20 08:00 4.0 11/15/20 08:00 71 11/15/20 04:58 179/96 11/15/20 04:00 Nasal Cannula 4.0 11/15/20 04:00 97.5 70 20 179/96 (123) 100 11/15/20 04:00 71 11/15/20 04:00 4.0 11/15/20 00:27 178/87 11/15/20 00:00 97.0 65 22 178/87 (117) 99 11/15/20 00:00 65 11/15/20 00:00 Nasal Cannula 4.0 11/14/20 20:02 223/130 11/14/20 20:00 96.4 90 20 200/111 (140) 99 11/14/20 20:00 5.0 11/14/20 20:00 90 11/14/20 20:00 Nasal Cannula 5.0 11/14/20 18:00 86 165/102 11/14/20 17:10 98.6 76 16 140/81 100 Non-Rebreather 15.0 Intake and Output 11/14/20 11/15/20 19:00 07:00 Intake Total 500 ml Output Total 2000 ml Balance 500 ml -2000 ml IV Total 500 ml Output Hemodialysis UF 2000 ml # Bowel Movements 2 Laboratory Tests Test 11/15/20 04:30 White Blood Count 6.2 K/UL (4.8-10.8) Red Blood Count 4.34 M/UL (4.20-5.40) Hemoglobin 9.2 G/DL (12.0-16.0) L Hematocrit 30.4 % (37.0-47.0) L Mean Corpuscular Volume 70 FL (80-99) L Mean Corpuscular Hemoglobin 21.2 PG (27.0-31.0) L Mean Corpuscular Hemoglobin Concent 30.2 G/DL (32.0-36.0) L Red Cell Distribution Width 21.6 % (11.6-14.8) H Platelet Count 129 K/UL (150-450) L Mean Platelet Volume 9.1 FL (6.5-10.1) Neutrophils (%) (Auto) 73.9 % (45.0-75.0) Lymphocytes (%) (Auto) 20.4 % (20.0-45.0) Monocytes (%) (Auto) 1.3 % (1.0-10.0) Eosinophils (%) (Auto) 0.1 % (0.0-3.0) Basophils (%) (Auto) 4.3 % (0.0-2.0) H D-Dimer 3.85 mg/L FEU (0.00-0.49) H Sodium Level 138 MMOL/L (136-145) Potassium Level 4.6 MMOL/L (3.5-5.1) Chloride Level 105 MMOL/L (98-107) Carbon Dioxide Level 27 MMOL/L (21-32) Anion Gap 6 mmol/L (5-15) Blood Urea Nitrogen 33 mg/dL (7-18) H Creatinine 3.0 MG/DL (0.55-1.30) H Estimat Glomerular Filtration Rate 16.0 mL/min (>60) Glucose Level 108 MG/DL (74-106) H Hemoglobin A1c 5.3 % (4.3-6.0) Uric Acid 4.6 MG/DL (2.6-7.2) Calcium Level 7.2 MG/DL (8.5-10.1) L Phosphorus Level 5.5 MG/DL (2.5-4.9) H Magnesium Level 2.0 MG/DL (1.8-2.4) Iron Level 100 ug/dL (50-175) Total Iron Binding Capacity 110 ug/dL (250-450) L Percent Iron Saturation 91 % (15-50) H Unsaturated Iron Binding 10 ug/dL (112-346) L Ferritin 1496 NG/ML (8-388) H Total Bilirubin 0.8 MG/DL (0.2-1.0) Gamma Glutamyl Transpeptidase 257 U/L (5-85) H Aspartate Amino Transf (AST/SGOT) 23 U/L (15-37) Alanine Aminotransferase (ALT/SGPT) 37 U/L (12-78) Alkaline Phosphatase 574 U/L (46-116) H Lactate Dehydrogenase 274 U/L (81-234) H Troponin I 0.026 ng/mL (0.000-0.056) C-Reactive Protein, Quantitative 1.8 mg/dL (0.00-0.90) H Pro-B-Type Natriuretic Peptide 14606 pg/mL (0-125) H Total Protein 6.2 G/DL (6.4-8.2) L Albumin 1.8 G/DL (3.4-5.0) L Globulin 4.4 g/dL Albumin/Globulin Ratio 0.4 (1.0-2.7) L Triglycerides Level 65 MG/DL (30-150) Cholesterol Level 220 MG/DL (< 200) H LDL Cholesterol 100 mg/dL (<100) HDL Cholesterol 86 MG/DL (40-60) H Cholesterol/HDL Ratio 2.6 (3.3-4.4) L Interleukin 6 (IL-6) Pending Vitamin B12 Level 1743 PG/ML (193-986) H Vitamin D 25-Hydroxy Pending 25-Hydroxy Vitamin D2 Pending 25-Hydroxy Vitamin D3 Pending Folate 37.2 NG/ML (8.6-58.9) Thyroid Stimulating Hormone (TSH) 2.613 uiU/mL (0.358-3.740) Free Thyroxine 1.10 NG/DL (0.76-1.46) Free Triiodothyronine 0.5 pg/mL (2.3-4.2) L Hepatitis B Surface Antigen Pending Height (Feet): 5 Height (Inches): 3.00 Weight (Pounds): 90 Medications Current Medications Medications (Trade) Dose Ordered Sig/Nisa Route PRN Reason Start Time Stop Time Status Last Admin Dose Admin Albuterol Sulfate (Proventil MDI) 2 puff Q4H PRN INH Shortness of Breath 11/15/20 10:45 02/13/21 10:44 Amlodipine Besylate (Norvasc) 5 mg BID ORAL 11/14/20 18:00 12/14/20 17:59 11/15/20 08:30 Ascorbic Acid (Vitamin C) 500 mg TWICE A DAY ORAL 11/15/20 18:00 12/15/20 17:59 Aspirin (ASA) 81 mg DAILY ORAL 11/15/20 09:00 12/30/20 08:59 11/15/20 08:31 Bisacodyl (Dulcolax) 10 mg DAILYPRN PRN RECTAL constipation 11/14/20 16:00 02/12/21 15:59 Chlorhexidine Gluconate (Guera-Hex 2%) 1 applic DAILY@1999 TOPIC 11/15/20 20:00 02/13/21 19:59 Clonidine HCl (Catapres Tab) 0.1 mg Q4H PRN ORAL bp over 165 syst 11/14/20 16:00 02/12/21 15:59 11/15/20 11:29 Dexamethasone Sodium Phosphate (Decadron 10mg/ ml Inj) 6 mg DAILY IV 11/14/20 21:30 11/23/20 09:01 11/15/20 08:30 Docusate Sodium (Colace) 100 mg TID ORAL 11/14/20 18:00 12/14/20 17:59 11/15/20 12:06 Enoxaparin Sodium (Lovenox) 30 mg DAILY SUBQ 11/16/20 09:00 02/14/21 08:59 Gabapentin (Neurontin) 300 mg THREE TIMES A DAY ORAL 11/14/20 18:00 12/14/20 17:59 11/15/20 12:06 Hydralazine HCl (Apresoline) 50 mg Q8HR ORAL 11/15/20 14:00 02/13/21 13:59 11/15/20 14:02 Lactulose (Cephulac) 20 gm DAILY ORAL 11/15/20 09:00 12/15/20 08:59 11/15/20 08:29 Levothyroxine Sodium (Synthroid) 88 mcg DAILY@0630 ORAL 11/15/20 06:30 12/15/20 06:29 11/15/20 05:31 Pantoprazole (Protonix) 40 mg BID ORAL 11/14/20 18:00 12/14/20 17:59 11/15/20 08:30 Trazodone HCl (Desyrel) 50 mg BEDTIME ORAL 11/14/20 21:00 12/14/20 20:59 11/14/20 20:02 Vitamin D (Vitamin D) 400 unit DAILY ORAL 11/16/20 09:00 12/16/20 08:59 Zinc Sulfate (Zinc Sulfate) 220 mg DAILY ORAL 11/16/20 09:00 02/14/21 08:59 Assessment/Plan Problem List: (1) SOB (shortness of breath) ICD Codes: R06.02 - Shortness of breath SNOMED: 660028959 (2) ESRD on dialysis Assessment & Plan: as per renal on HD planned today ICD Codes: N18.6 - End stage renal disease; Z99.2 - Dependence on renal dialysis SNOMED: 296402777 (3) COVID-19 Assessment & Plan: ++ per pulm and ID respiratory stable for now cxr noted Acute interstitial disease, developing since 11/12/2020. Appearance is nonspecific, may reflect bilateral infiltrates versus edema/fluid overload. ICD Codes: U07.1 - COVID-19 SNOMED: 824987320 (4) Hypertensive kidney disease ICD Codes: I12.9 - Hypertensive chronic kidney disease with stage 1 through stage 4 chronic kidney disease, or unspecified chronic kidney disease SNOMED: 69431270 (5) Anemia in chronic kidney disease ICD Codes: N18.9 - Chronic kidney disease, unspecified; D63.1 - Anemia in chronic kidney disease SNOMED: 375626231 (6) Dyspnea ICD Codes: R06.00 - Dyspnea, unspecified SNOMED: 636219818 (7) Renal failure ICD Codes: N19 - Unspecified kidney failure SNOMED: 07376851 (8) Abnormal LFTs Assessment & Plan: Patient identified to have significant abnormal labs. G GT alk phos and LDH elevated. AST ALT normal lipase normal. Significance unknown at this time. I have been seeing it with Covid positivity at this time. Liver seems to be functional otherwise within normal limits. Hold on further imaging for this time. Continue with IV hydration dialysis. Trend labs. Will monitor with examination. Baseline abdominal examination thus far is fairly benign ICD Codes: R94.5 - Abnormal results of liver function studies SNOMED: 336387832 Renny Thornton Nov 15, 2020 17:08
[2020-11-15] MEDS: Ascorbic Acid 500mg tab ORAL SCH (17:09)
--- NOTE | 2020-11-15 17:30 | NUR ---
NURSE NOTES: Pt finished 100% her breakfast, lunch and dinner with minimum assist. Tolerating 4L 02 saturating 94-98%. Evening medications administered per order. Not in acute distress. Will continue with the plan of care.
--- NOTE | 2020-11-15 19:20 | NUR ---
NURSE NOTES: Received report from MICH Ballard. Pt is A/O x4 and verbally responsive. No SOB or acute distress noted. Slight pain noted on her chest with deep breaths. Will contact MD for pain medication. Pt is on nasal canula 4L with saturation of 95%. veterans employment representative shows NSR. Pt has a IV on LH which is flushed and intact. Bed is locked and in lowest position, bed alarm on with side rails x2 and locked. Will continue with the plan of care
--- NOTE | 2020-11-15 19:30 | NUR ---
NURSE HAND-OFF REPORT: Important Events on Shift:None Patient Status: Full code Diet: Renal Diet Pending Orders: N Pending Results/Labs:N Pending MD notification:N Latest Vital Signs: Temperature 97.7 , Pulse 63 , B/P 167 /83 , Respiratory Rate 18 , O2 SAT 95 , Non-Rebreather, O2 Flow Rate 4.0 . Vital Sign Comment: stable, BP elevated EKG Rhythm: Sinus Rhythm Rhythm change?: N MD Notified?: - MD Response: Latest Rouse Fall Score: 45 Fall Risk: High Risk Safety Measures: Call light Within Reach, Bed Alarm Zone 1, Side Rails Side Rails x2, Bed position Low and Locked. Fall Precautions: Yellow Socks Yellow Gown Door Sign Patient Fall Education Report given to lizandro Merida RN.
[2020-11-15 20:00] VITALS: BP 151/86
--- NOTE | 2020-11-15 20:23 | NUR ---
NURSE NOTES: Contacted Dr Carpenter regarding pt complaining of pain. Received new order for Tramadol 50mg PRN Q6H for pain. MD made aware of allergies to acetaminophen and morphine. MD said to still continue with the order.
[2020-11-15] MEDS: TraZODone 50mg tab ORAL SCH (21:14)
[2020-11-15] MEDS: Dyna-Hex 2% Top Sol 2oz TOPIC SCH (21:14)
[2020-11-15] MEDS: traMADol 50mg tab ORAL PRN (21:15)
[2020-11-16] VITALS (8 sets, daily range): BP systolic 129–160; BP diastolic 70–89
[2020-11-16 05:14] LABS: HEMOGLOBIN 7.5 G/DL (12.0-16.0); MEAN CORPUSCULAR VOLUME 70 FL (80-99); PLATELET COUNT 142 K/UL (150-450); RED CELL DISTRIBUTION WIDTH 21.8 % (11.6-14.8)
[2020-11-16] MEDS: HydrALAZINE 50mg tab ORAL SCH ×3 (05:45→21:25)
[2020-11-16] MEDS: traMADol 50mg tab ORAL PRN ×2 (05:45→19:11)
[2020-11-16 05:59] LABS: CALCIUM 7.2 MG/DL (8.5-10.1); CREATININE 3.6 MG/DL (0.55-1.30); POTASSIUM 4.7 MMOL/L (3.5-5.1)
[2020-11-16 06:26] LABS: ALANINE AMINOTRANSFERASE 34 U/L (12-78); ALBUMIN 1.9 G/DL (3.4-5.0); ALKALINE PHOSPHATASE 489 U/L (46-116); ASPARTATE AMINO TRANSFERASE 24 U/L (15-37); BILIRUBIN,DIRECT 0.2 MG/DL (0.0-0.3); BILIRUBIN,TOTAL 0.4 MG/DL (0.2-1.0); PHOSPHORUS 6.7 MG/DL (2.5-4.9)
--- NOTE | 2020-11-16 06:40 | NUR ---
NURSE NOTES: Contacted Dr. Carpenter regarding BS being 547 on labs and 505 on a finger stick. Asked for new orders. Awaiting response
--- NOTE | 2020-11-16 07:10 | NUR ---
NURSE NOTES: When I came in this morning, Pts R big toe had dried blood on it. When asked Pt, she said "do not worry abt it" and said it did not hurt. She said she had a bad dream where a man was chasing her and so she kicked them in her dream and when she woke up her toe was bleeding. She said it has minimal pain.
--- NOTE | 2020-11-16 07:15 | NUR ---
NURSE NOTES: found Pt in stool, soft yellow. Pt is continent, asking for bedpan at this time to urine. provided Pt and cleaned Pt at this time. gown and linen changed as well.
--- NOTE | 2020-11-16 07:15 | NUR ---
NURSE NOTES: Received new order from [facility] regarding insulin to 10 Novolog 10 units x 1 time then start her on Novolog sliding ACHS. New order carried out.
[2020-11-16] MEDS ORDERED: NovoLOG Insulin Flexpen SUBQ ONE (07:30)
--- NOTE | 2020-11-16 07:34 | NUR ---
NURSE NOTES: Received report from MICH Merida. Pt is sleeping comfortably in bed. No acute distress or complaints noted. Pt is on nasal canula 4L with saturation of 94%. ct manager shows NSR. Pt has a IV on L hand. Bed is locked and in lowest position, bed alarm on with side rails x2 and call light in reach.
[2020-11-16] MEDS: Ascorbic Acid 500mg tab ORAL SCH ×2 (08:09→17:43)
[2020-11-16] MEDS: Docusate 100mg cap ORAL SCH ×3 (08:09→17:43)
[2020-11-16] MEDS: Aspirin Baby 81mg ORAL SCH (08:09)
[2020-11-16] MEDS: dexAMETHasone 10mg/ml Inj IV SCH (08:10)
[2020-11-16] MEDS: Lactulose 20gm/30ml UDC ORAL SCH (08:22)
--- NOTE | 2020-11-16 08:35 | Pulmonology Progress Note ---
Subjective ROS Limited/Unobtainable: No Allergies: Coded Allergies: ACETAMINOPHEN (Verified Allergy, Unknown, 11/12/20) MORPHINE (Verified Allergy, Unknown, 11/12/20) Subjective remains on 4 L o2 via NC reports some SOB and occasional CP with breathing, Tramadol helps BS > 500 this am Objective Last 24 Hour Vital Signs Date Time Temp Pulse Resp B/P (MAP) Pulse Ox O2 Delivery O2 Flow Rate FiO2 11/16/20 08:09 71 160/75 11/16/20 08:00 97.7 71 16 160/75 (103) 98 11/16/20 05:45 149/80 11/16/20 04:00 97.9 70 17 149/80 (103) 98 11/16/20 04:00 62 11/16/20 04:00 4.0 11/16/20 04:00 Nasal Cannula 4.0 11/16/20 00:00 Nasal Cannula 4.0 11/16/20 00:00 67 11/16/20 00:00 4.0 11/16/20 00:00 97.6 72 18 151/86 (107) 100 11/15/20 21:14 152/86 11/15/20 20:00 97.6 72 18 151/86 (107) 100 11/15/20 20:00 Nasal Cannula 4.0 11/15/20 20:00 4.0 11/15/20 20:00 73 11/15/20 17:08 63 167/83 11/15/20 16:00 97.7 92 18 167/83 (111) 95 11/15/20 16:00 4.0 11/15/20 16:00 66 11/15/20 16:00 Nasal Cannula 4.0 11/15/20 14:02 175/89 11/15/20 12:00 97.5 61 18 183/117 (139) 98 11/15/20 12:00 65 11/15/20 12:00 4.0 11/15/20 12:00 Nasal Cannula 4.0 11/15/20 11:29 186/96 11/15/20 08:30 73 156/95 Intake and Output 11/15/20 11/16/20 19:00 07:00 Intake Total 100 ml Balance 100 ml Intake Oral 100 ml # Voids 1 # Bowel Movements 4 2 Objective General Appearance: cachetic; awake, chronically ill looking female in NAD Lines, tubes and drains: peripheral HEENT: normocephalic, atraumatic, anicteric, mucous membranes moist, 4 L O2 via NC Neck: non-tender, supple Respiratory/Chest: chest wall non-tender, no accessory muscle use, decreased breath sounds, R chest HD catheter in place Cardiovascular/Chest: normal rate, regular rhythm Abdomen: normal bowel sounds, non tender, soft Extremities: no calf tenderness, no edema Neurologic: abnormal gait - bedridden , alert, responsive Musculoskeletal: atrophy - BLE Microbiology Date/Time Source Procedure Growth Status 11/14/20 14:20 Rectum - Final NO CARBAPENEM-RESISTANT ENTEROBACTERI... Complete 11/14/20 14:20 Rectum VRE Culture - Final Enterococcus Faecium - Vre Enterococcus Faecalis - Vre Complete 11/14/20 14:20 Nasal Nares MRSA Culture - Final NO METHICILLIN RESISTANT STAPH AUREUS... Complete 11/14/20 11:16 Nasal Nares - Final Complete 11/14/20 11:16 Nasal Nares - Final Complete 11/14/20 10:50 Nasopharynx SARS-CoV-2 RdRp Gene Assay - Final Complete 11/14/20 10:50 Blood Blood Culture - Preliminary NO GROWTH AFTER 24 HOURS Resulted 11/14/20 10:35 Blood Blood Culture - Preliminary NO GROWTH AFTER 24 HOURS Resulted Laboratory Tests 11/16/20 04:15: White Blood Count 8.0, Red Blood Count 3.60L, Hemoglobin 7.5L, Hematocrit 25.0L, Mean Corpuscular Volume 70L, Mean Corpuscular Hemoglobin 20.9L, Mean Corpuscular Hemoglobin Concent 30.1L, Red Cell Distribution Width 21.8H, Platelet Count 142L , Mean Platelet Volume 9.5, Neutrophils (%) (Auto) , Lymphocytes (%) (Auto) , Monocytes (%) (Auto) , Eosinophils (%) (Auto) , Basophils (%) (Auto) , Differential Total Cells Counted 100, Neutrophils % (Manual) 69, Lymphocytes % (Manual) 21, Monocytes % (Manual) 9, Eosinophils % (Manual) 1, Basophils % (Manual) 0, Band Neutrophils 0, Platelet Estimate DecreasedL, Platelet Morphology Normal, Giant Platelets Occasional, Hypochromasia 1+, Anisocytosis 3+, Microcytosis 1+, Target Cells Occasional, Sodium Level 132L, Potassium Level 4.7, Chloride Level 100, Carbon Dioxide Level 24, Anion Gap 8, Blood Urea Nitrogen 43H, Creatinine 3.6H, Estimat Glomerular Filtration Rate 12.8, Glucose Level 547#*H, Uric Acid 5.7, Calcium Level 7.2L, Phosphorus Level 6.7H, Magnesium Level 2.2, Total Bilirubin 0.4, Direct Bilirubin 0.2, Aspartate Amino Transf (AST/SGOT) 24, Alanine Aminotransferase (ALT/SGPT) 34, Alkaline Phosphatase 489H, C-Reactive Protein, Quantitative 1.1H, Pro-B-Type Natriuretic Peptide 48448H, Total Protein 6.0L, Albumin 1.9L 11/16/20 06:18: POC Whole Blood Glucose 505*H Current Medications Medications (Trade) Dose Ordered Sig/Nisa Route PRN Reason Start Time Stop Time Status Last Admin Dose Admin Albuterol Sulfate (Proventil MDI) 2 puff Q4H PRN INH Shortness of Breath 11/15/20 10:45 02/13/21 10:44 Amlodipine Besylate (Norvasc) 5 mg BID ORAL 11/14/20 18:00 12/14/20 17:59 11/16/20 08:09 Ascorbic Acid (Vitamin C) 500 mg TWICE A DAY ORAL 11/15/20 18:00 12/15/20 17:59 11/16/20 08:09 Aspirin (ASA) 81 mg DAILY ORAL 11/15/20 09:00 12/30/20 08:59 11/16/20 08:09 Bisacodyl (Dulcolax) 10 mg DAILYPRN PRN RECTAL constipation 11/14/20 16:00 02/12/21 15:59 Chlorhexidine Gluconate (Guera-Hex 2%) 1 applic DAILY@1999 TOPIC 11/15/20 20:00 02/13/21 19:59 11/15/20 21:14 Clonidine HCl (Catapres Tab) 0.1 mg Q4H PRN ORAL bp over 165 syst 11/14/20 16:00 02/12/21 15:59 11/15/20 11:29 Dexamethasone Sodium Phosphate (Decadron 10mg/ ml Inj) 6 mg DAILY IV 11/14/20 21:30 11/23/20 09:01 11/16/20 08:10 Dextrose (Dextrose 50%) 25 ml Q30M PRN IV Hypoglycemia 11/16/20 07:30 02/14/21 07:29 Dextrose (Dextrose 50%) 50 ml Q30M PRN IV Hypoglycemia 11/16/20 07:30 02/14/21 07:29 Docusate Sodium (Colace) 100 mg TID ORAL 11/14/20 18:00 12/14/20 17:59 11/16/20 08:09 Enoxaparin Sodium (Lovenox) 30 mg DAILY SUBQ 11/16/20 09:00 02/14/21 08:59 Gabapentin (Neurontin) 300 mg THREE TIMES A DAY ORAL 11/14/20 18:00 12/14/20 17:59 11/16/20 08:09 Hydralazine HCl (Apresoline) 50 mg Q8HR ORAL 11/15/20 14:00 02/13/21 13:59 11/16/20 05:45 Insulin Aspart (NovoLOG) BEFORE MEALS AND HS SUBQ 11/16/20 11:30 02/14/21 11:29 Lactulose (Cephulac) 20 gm DAILY ORAL 11/15/20 09:00 12/15/20 08:59 11/16/20 08:22 Levothyroxine Sodium (Synthroid) 88 mcg DAILY@0630 ORAL 11/15/20 06:30 12/15/20 06:29 11/16/20 05:46 Pantoprazole (Protonix) 40 mg BID ORAL 11/14/20 18:00 12/14/20 17:59 11/16/20 08:09 Tramadol HCl (Ultram) 50 mg Q6H PRN ORAL For Pain 11/15/20 20:30 11/22/20 20:29 11/16/20 05:45 Trazodone HCl (Desyrel) 50 mg BEDTIME ORAL 11/14/20 21:00 12/14/20 20:59 11/15/20 21:14 Vitamin D (Vitamin D) 400 unit DAILY ORAL 11/16/20 09:00 12/16/20 08:59 Zinc Sulfate (Zinc Sulfate) 220 mg DAILY ORAL 11/16/20 09:00 02/14/21 08:59 Assessment/Plan Assessment/Plan ASSESSMENT COVID-19 pneumonia Acute hypoxemic respiratory failure 2/2 pneumonia- requiting NRM initially ESRD, on HD Hypotension, initially -resolved HTN Protein calorie malnutrition Hypoalbuminemia Anemia of chronic kidney disease Hypothyroidism hyperglycemia due to steroid use PLAN OF CARE tele Date of sx onset: few days prior to presentation to ED Positive test: rapid COVID 19 11/14 + O2 4 L NC HFA Dex Day# 3 ( 11/14 -) Not a candidate for REM given renal failure DVT PPX: Lovenox D dimer -3.85 Venous Duplex BLE 11/15 NGT Trend CRP-1.6 -1.1 abx per ID recs -currently off abx as per ID rec supportive care: vit A, D and zinc fup with imaging encourage prone position as tolerated monitor volumes and renal function Fup with consultants recs FC BS management give 10 u insulin now start SSI no concentrated sweets diet not diabetic HgA1c 5.3 hyperglycemia likely due to steroids HD as per nephro recs BP management with current regimen and optimize further as needed continue levothyroxine, TSH WNL monitor HH with goal to keep Hgb above 7 dietary eval case discussed and evaluated by supervising physician Giselle Valentin NP Nov 16, 2020 08:35
[2020-11-16] MEDS: Vitamin D 400 units TAB ORAL SCH (09:19)
[2020-11-16] MEDS: Zinc Sulfate 220mg ORAL SCH (09:19)
[2020-11-16] MEDS: Enoxaparin 30mg Inj SUBQ SCH (09:25)
[2020-11-16] MEDS: NovoLOG Insulin Flexpen SUBQ SCH ×3 (11:21→21:41)
--- NOTE | 2020-11-16 11:51 | Surgery Progress Note ---
Surgery Progress Note Subjective Additional Comments no acute events labs noted exam stable dressings going well respiratory unchanged Objective Last 24 Hour Vital Signs Date Time Temp Pulse Resp B/P (MAP) Pulse Ox O2 Delivery O2 Flow Rate FiO2 11/16/20 09:00 70 17 129/70 (89) 100 11/16/20 08:09 71 160/75 11/16/20 08:00 69 11/16/20 08:00 Nasal Cannula 4.0 11/16/20 08:00 97.7 71 16 160/75 (103) 98 11/16/20 08:00 4.0 11/16/20 05:45 149/80 11/16/20 04:00 97.9 70 17 149/80 (103) 98 11/16/20 04:00 62 11/16/20 04:00 4.0 11/16/20 04:00 Nasal Cannula 4.0 11/16/20 00:00 Nasal Cannula 4.0 11/16/20 00:00 67 11/16/20 00:00 4.0 11/16/20 00:00 97.6 72 18 151/86 (107) 100 11/15/20 21:14 152/86 11/15/20 20:00 97.6 72 18 151/86 (107) 100 11/15/20 20:00 Nasal Cannula 4.0 11/15/20 20:00 4.0 11/15/20 20:00 73 11/15/20 17:08 63 167/83 11/15/20 16:00 97.7 92 18 167/83 (111) 95 11/15/20 16:00 4.0 11/15/20 16:00 66 11/15/20 16:00 Nasal Cannula 4.0 11/15/20 14:02 175/89 11/15/20 12:00 97.5 61 18 183/117 (139) 98 11/15/20 12:00 65 11/15/20 12:00 4.0 11/15/20 12:00 Nasal Cannula 4.0 I&O Intake and Output 11/15/20 11/16/20 19:00 07:00 Intake Total 100 ml Balance 100 ml Intake Oral 100 ml # Voids 1 # Bowel Movements 4 2 Dressing: other Wound: other Cardiovascular: RSR Respiratory: decreased breath sounds Abdomen: non-tender, present bowel sounds Extremities: no tenderness, no cyanosis Laboratory Tests Test 11/16/20 04:15 11/16/20 06:18 11/16/20 11:14 White Blood Count 8.0 K/UL (4.8-10.8) Red Blood Count 3.60 M/UL (4.20-5.40) L Hemoglobin 7.5 G/DL (12.0-16.0) L Hematocrit 25.0 % (37.0-47.0) L Mean Corpuscular Volume 70 FL (80-99) L Mean Corpuscular Hemoglobin 20.9 PG (27.0-31.0) L Mean Corpuscular Hemoglobin Concent 30.1 G/DL (32.0-36.0) L Red Cell Distribution Width 21.8 % (11.6-14.8) H Platelet Count 142 K/UL (150-450) L Mean Platelet Volume 9.5 FL (6.5-10.1) Neutrophils (%) (Auto) % (45.0-75.0) Lymphocytes (%) (Auto) % (20.0-45.0) Monocytes (%) (Auto) % (1.0-10.0) Eosinophils (%) (Auto) % (0.0-3.0) Basophils (%) (Auto) % (0.0-2.0) Differential Total Cells Counted 100 Neutrophils % (Manual) 69 % (45-75) Lymphocytes % (Manual) 21 % (20-45) Monocytes % (Manual) 9 % (1-10) Eosinophils % (Manual) 1 % (0-3) Basophils % (Manual) 0 % (0-2) Band Neutrophils 0 % (0-8) Platelet Estimate Decreased L Platelet Morphology Normal Giant Platelets Occasional Hypochromasia 1+ Anisocytosis 3+ Microcytosis 1+ Target Cells Occasional Sodium Level 132 MMOL/L (136-145) L Potassium Level 4.7 MMOL/L (3.5-5.1) Chloride Level 100 MMOL/L (98-107) Carbon Dioxide Level 24 MMOL/L (21-32) Anion Gap 8 mmol/L (5-15) Blood Urea Nitrogen 43 mg/dL (7-18) H Creatinine 3.6 MG/DL (0.55-1.30) H Estimat Glomerular Filtration Rate 12.8 mL/min (>60) Glucose Level 547 MG/DL (74-106) #*H Uric Acid 5.7 MG/DL (2.6-7.2) Calcium Level 7.2 MG/DL (8.5-10.1) L Phosphorus Level 6.7 MG/DL (2.5-4.9) H Magnesium Level 2.2 MG/DL (1.8-2.4) Total Bilirubin 0.4 MG/DL (0.2-1.0) Direct Bilirubin 0.2 MG/DL (0.0-0.3) Aspartate Amino Transf (AST/SGOT) 24 U/L (15-37) Alanine Aminotransferase (ALT/SGPT) 34 U/L (12-78) Alkaline Phosphatase 489 U/L (46-116) H C-Reactive Protein, Quantitative 1.1 mg/dL (0.00-0.90) H Pro-B-Type Natriuretic Peptide 89022 pg/mL (0-125) H Total Protein 6.0 G/DL (6.4-8.2) L Albumin 1.9 G/DL (3.4-5.0) L POC Whole Blood Glucose 505 MG/DL (74-106) *H 301 MG/DL (74-106) H Plan Problems: (1) SOB (shortness of breath) (2) ESRD on dialysis Assessment & Plan: as per renal on HD planned today (3) COVID-19 Assessment & Plan: ++ per pulm and ID respiratory stable for now cxr noted Acute interstitial disease, developing since 11/12/2020. Appearance is nonspecific, may reflect bilateral infiltrates versus edema/fluid overload. (4) Hypertensive kidney disease (5) Anemia in chronic kidney disease (6) Dyspnea (7) Renal failure (8) Abnormal LFTs Assessment & Plan: Patient identified to have significant abnormal labs. G GT alk phos and LDH elevated. AST ALT normal lipase normal. Significance unknown at this time. I have been seeing it with Covid positivity at this time. Liver seems to be functional otherwise within normal limits. Hold on further imaging for this time. Continue with IV hydration dialysis. Trend labs. Will monitor with examination. Baseline abdominal examination thus far is fairly benign Renny Thornton Nov 16, 2020 11:51
--- NOTE | 2020-11-16 12:52 | NUR ---
NURSE NOTES: Pt independently eating lunch herself, assistance required with set up and clean up. Otherwise, Pt is stable and comfortable in bed.
--- NOTE | 2020-11-16 14:48 | NUR ---
NURSE NOTES: Called blood bank, awaiting 1U PRBC to infuse. Pt is AOx4 but unable to sign for self d/t hard of seeing in both eyes per Pt and assessment. Dany RN witnessed Pt verbal consent and understanding of blood transfusion. pt reports having had blood transfusions in the past, no reactions per Pt. Order originated from Dr Anisha Quintanilla, discussed w/ Pt.
--- NOTE | 2020-11-16 14:56 | Nephrology Progress Note ---
Assessment/Plan Problem List: (1) ESRD on dialysis (2) Hypertensive kidney disease (3) COVID-19 (4) SOB (shortness of breath) (5) Anemia in chronic kidney disease Assessment COVID-19, pneumonia Shortness of breath, hypoxia End-stage renal disease, right jugular dialysis catheter Low MCV anemia Plan November 16: Last dialysis November 14. Will order dialysis tomorrow. Patient hemoglobin lower. 1 unit of packed RBC transfusion ordered. Blood pressure better controlled. Phos binders adjusted. Continue per consultants. November 15: Patient dialyzed last night. Labs reviewed. Patient complaining of chest tightness. Medication list reviewed. Blood pressure remains elevated at times. Will adjust blood pressure medication. Next hemodialysis again tomorrow. Previously: Hemodialysis and ultrafiltration 2D echocardiogram Keep the blood pressure blood sugar in check Anemia work-up COVID-19 pneumonia treatment per pulmonary Keep the blood pressure and blood sugar in check Subjective ROS Limited/Unobtainable: No Constitutional: Reports: malaise, weakness Objective Objective Last 24 Hour Vital Signs Date Time Temp Pulse Resp B/P (MAP) Pulse Ox O2 Delivery O2 Flow Rate FiO2 11/16/20 12:00 68 11/16/20 12:00 97.0 71 17 130/72 (91) 100 11/16/20 12:00 Nasal Cannula 2.0 11/16/20 12:00 2.0 11/16/20 09:00 70 17 129/70 (89) 100 11/16/20 08:09 71 160/75 11/16/20 08:00 69 11/16/20 08:00 Nasal Cannula 4.0 11/16/20 08:00 97.7 71 16 160/75 (103) 98 11/16/20 08:00 4.0 11/16/20 05:45 149/80 11/16/20 04:00 97.9 70 17 149/80 (103) 98 11/16/20 04:00 62 11/16/20 04:00 4.0 11/16/20 04:00 Nasal Cannula 4.0 11/16/20 00:00 Nasal Cannula 4.0 11/16/20 00:00 67 11/16/20 00:00 4.0 11/16/20 00:00 97.6 72 18 151/86 (107) 100 11/15/20 21:14 152/86 11/15/20 20:00 97.6 72 18 151/86 (107) 100 11/15/20 20:00 Nasal Cannula 4.0 11/15/20 20:00 4.0 11/15/20 20:00 73 11/15/20 17:08 63 167/83 11/15/20 16:00 97.7 92 18 167/83 (111) 95 11/15/20 16:00 4.0 11/15/20 16:00 66 11/15/20 16:00 Nasal Cannula 4.0 Intake and Output 11/15/20 11/16/20 19:00 07:00 Intake Total 100 ml Balance 100 ml Intake Oral 100 ml # Voids 1 # Bowel Movements 4 2 Current Medications Medications (Trade) Dose Ordered Sig/Nisa Route PRN Reason Start Time Stop Time Status Last Admin Dose Admin Albuterol Sulfate (Proventil MDI) 2 puff Q4H PRN INH Shortness of Breath 11/15/20 10:45 02/13/21 10:44 Amlodipine Besylate (Norvasc) 5 mg BID ORAL 11/14/20 18:00 12/14/20 17:59 11/16/20 08:09 Ascorbic Acid (Vitamin C) 500 mg TWICE A DAY ORAL 11/15/20 18:00 12/15/20 17:59 11/16/20 08:09 Aspirin (ASA) 81 mg DAILY ORAL 11/15/20 09:00 12/30/20 08:59 11/16/20 08:09 Bisacodyl (Dulcolax) 10 mg DAILYPRN PRN RECTAL constipation 11/14/20 16:00 02/12/21 15:59 Chlorhexidine Gluconate (Guera-Hex 2%) 1 applic DAILY@1999 TOPIC 11/15/20 20:00 02/13/21 19:59 11/15/20 21:14 Clonidine HCl (Catapres Tab) 0.1 mg Q4H PRN ORAL bp over 165 syst 11/14/20 16:00 02/12/21 15:59 11/15/20 11:29 Dexamethasone Sodium Phosphate (Decadron 10mg/ ml Inj) 6 mg DAILY IV 11/14/20 21:30 11/23/20 09:01 11/16/20 08:10 Dextrose (Dextrose 50%) 25 ml Q30M PRN IV Hypoglycemia 11/16/20 07:30 02/14/21 07:29 Dextrose (Dextrose 50%) 50 ml Q30M PRN IV Hypoglycemia 11/16/20 07:30 02/14/21 07:29 Docusate Sodium (Colace) 100 mg TID ORAL 11/14/20 18:00 12/14/20 17:59 11/16/20 12:30 Enoxaparin Sodium (Lovenox) 30 mg DAILY SUBQ 11/16/20 09:00 02/14/21 08:59 11/16/20 09:25 Gabapentin (Neurontin) 300 mg THREE TIMES A DAY ORAL 11/14/20 18:00 12/14/20 17:59 11/16/20 12:30 Hydralazine HCl (Apresoline) 50 mg Q8HR ORAL 11/15/20 14:00 02/13/21 13:59 11/16/20 05:45 Insulin Aspart (NovoLOG) BEFORE MEALS AND HS SUBQ 11/16/20 11:30 02/14/21 11:29 11/16/20 11:21 Lactulose (Cephulac) 20 gm DAILY ORAL 11/15/20 09:00 12/15/20 08:59 11/16/20 08:22 Levothyroxine Sodium (Synthroid) 88 mcg DAILY@0630 ORAL 11/15/20 06:30 12/15/20 06:29 11/16/20 05:46 Pantoprazole (Protonix) 40 mg BID ORAL 11/14/20 18:00 12/14/20 17:59 11/16/20 08:09 Sevelamer Carbonate (Renvela) 800 mg THREE TIMES A DAY ORAL 11/16/20 18:00 02/14/21 17:59 Tramadol HCl (Ultram) 50 mg Q6H PRN ORAL For Pain 11/15/20 20:30 11/22/20 20:29 11/16/20 05:45 Trazodone HCl (Desyrel) 50 mg BEDTIME ORAL 11/14/20 21:00 12/14/20 20:59 11/15/20 21:14 Vitamin D (Vitamin D) 400 unit DAILY ORAL 11/16/20 09:00 12/16/20 08:59 11/16/20 09:19 Zinc Sulfate (Zinc Sulfate) 220 mg DAILY ORAL 11/16/20 09:00 02/14/21 08:59 11/16/20 09:19 Laboratory Tests 11/16/20 04:15: White Blood Count 8.0, Red Blood Count 3.60L, Hemoglobin 7.5L, Hematocrit 25.0L, Mean Corpuscular Volume 70L, Mean Corpuscular Hemoglobin 20.9L, Mean Corpuscular Hemoglobin Concent 30.1L, Red Cell Distribution Width 21.8H, Platelet Count 142L , Mean Platelet Volume 9.5, Neutrophils (%) (Auto) , Lymphocytes (%) (Auto) , Monocytes (%) (Auto) , Eosinophils (%) (Auto) , Basophils (%) (Auto) , Differential Total Cells Counted 100, Neutrophils % (Manual) 69, Lymphocytes % (Manual) 21, Monocytes % (Manual) 9, Eosinophils % (Manual) 1, Basophils % (Manual) 0, Band Neutrophils 0, Platelet Estimate DecreasedL, Platelet Morphology Normal, Giant Platelets Occasional, Hypochromasia 1+, Anisocytosis 3+, Microcytosis 1+, Target Cells Occasional, Sodium Level 132L, Potassium Level 4.7, Chloride Level 100, Carbon Dioxide Level 24, Anion Gap 8, Blood Urea Nitrogen 43H, Creatinine 3.6H, Estimat Glomerular Filtration Rate 12.8, Glucose Level 547#*H, Uric Acid 5.7, Calcium Level 7.2L, Phosphorus Level 6.7H, Magnesium Level 2.2, Total Bilirubin 0.4, Direct Bilirubin 0.2, Aspartate Amino Transf (AST/SGOT) 24, Alanine Aminotransferase (ALT/SGPT) 34, Alkaline Phosphatase 489H, C-Reactive Protein, Quantitative 1.1H, Pro-B-Type Natriuretic Peptide 83465S, Total Protein 6.0L, Albumin 1.9L 11/16/20 06:18: POC Whole Blood Glucose 505*H 11/16/20 11:14: POC Whole Blood Glucose 301H Height (Feet): 5 Height (Inches): 3.00 Weight (Pounds): 90 General Appearance: no apparent distress, lethargic Cardiovascular: normal rate Respiratory/Chest: decreased breath sounds Abdomen: distended Edi Quintanilla MD Nov 16, 2020 14:56
--- NOTE | 2020-11-16 15:54 | NUR ---
NURSE NOTES: Called [facility] regarding Pt HD apt wednesday. Left message, awaiting call back.
--- NOTE | 2020-11-16 16:35 | NUR ---
NURSE NOTES: PRBC checked w/ MICH Marcos. Blood started, no acute rxn noted at this time. Outside Pt room monitoring. Addendum: 11/16/20 at 1845 by Aide James RN RN [id number]
--- NOTE | 2020-11-16 16:51 | NUR ---
NURSE NOTES: Called blood bank and lab regarding blood f/u. No answer. Will call again. Addendum: 11/16/20 at 1657 by Aide James RN RN Blood bank said "we are working on it"
--- NOTE | 2020-11-16 16:54 | NUR ---
NURSE NOTES: Called [facility] to confirm dialysis appointment for tmr, transferred to HUSSAIN Ellison RN who confirmed appointment for tmr 11/17.
--- NOTE | 2020-11-16 17:54 | NUR ---
NURSE NOTES: contacted Md for Pt pain medication for headache. awaiting call back
--- NOTE | 2020-11-16 18:36 | NUR ---
NURSE HAND-OFF REPORT: Important Events on Shift: headache, awaiting Jayden response//HD apt for 11/17// hgb low transfuse 1u PRBC started at 1835, titrated to 1LPM NC Patient Status: fc, stable Diet: renal Pending Orders: Pending Results/Labs: Pending MD notification: pain management Latest Vital Signs: Temperature 98.2 , Pulse 78 , B/P 150 /79 , Respiratory Rate 16 , O2 SAT 100 , Non-Rebreather, O2 Flow Rate 1.0 . Vital Sign Comment: EKG Rhythm: Sinus Rhythm Rhythm change?: N MD Notified?: - MD Response: Latest Rouse Fall Score: 45 Fall Risk: High Risk Safety Measures: Call light Within Reach, Bed Alarm Zone 1, Side Rails Side Rails x2, Bed position Low and Locked. Fall Precautions: Yellow Socks Yellow Gown Door Sign Patient Fall Education Report to be given. Addendum: 11/16/20 at 183 by Aide James RN RN pt kicked bed, great R toe bleeding x1 Addendum: 11/16/20 at 1907 by Aide James RN RN Disregard pain medication page to Dr. Carpenter. Pt is stable and transfusing PRBC. plan of care and report endorsed to MICH Merida
--- NOTE | 2020-11-16 18:45 | Internal Med Progress Note ---
Subjective Date of Service: Nov 16, 2020 Physician Name MadridOswald Attending Physician Randy Carpenter MD Current Medications Medications (Trade) Dose Ordered Sig/Nisa Route PRN Reason Start Time Stop Time Status Last Admin Dose Admin Albuterol Sulfate (Proventil MDI) 2 puff Q4H PRN INH Shortness of Breath 11/15/20 10:45 02/13/21 10:44 Amlodipine Besylate (Norvasc) 5 mg BID ORAL 11/14/20 18:00 12/14/20 17:59 11/16/20 17:44 Ascorbic Acid (Vitamin C) 500 mg TWICE A DAY ORAL 11/15/20 18:00 12/15/20 17:59 11/16/20 17:43 Aspirin (ASA) 81 mg DAILY ORAL 11/15/20 09:00 12/30/20 08:59 11/16/20 08:09 Bisacodyl (Dulcolax) 10 mg DAILYPRN PRN RECTAL constipation 11/14/20 16:00 02/12/21 15:59 Chlorhexidine Gluconate (Guera-Hex 2%) 1 applic DAILY@2000 TOPIC 11/15/20 20:00 02/13/21 19:59 11/15/20 21:14 Clonidine HCl (Catapres Tab) 0.1 mg Q4H PRN ORAL bp over 165 syst 11/14/20 16:00 02/12/21 15:59 11/15/20 11:29 Dexamethasone Sodium Phosphate (Decadron 10mg/ ml Inj) 6 mg DAILY IV 11/14/20 21:30 11/23/20 09:01 11/16/20 08:10 Dextrose (Dextrose 50%) 25 ml Q30M PRN IV Hypoglycemia 11/16/20 07:30 02/14/21 07:29 Dextrose (Dextrose 50%) 50 ml Q30M PRN IV Hypoglycemia 11/16/20 07:30 02/14/21 07:29 Docusate Sodium (Colace) 100 mg TID ORAL 11/14/20 18:00 12/14/20 17:59 11/16/20 17:43 Enoxaparin Sodium (Lovenox) 30 mg DAILY SUBQ 11/16/20 09:00 02/14/21 08:59 11/16/20 09:25 Epoetin Cheikh (Epoetin Cheikh(ESRD on dialysis)) 10,000 unit WED-WED-WED SUBQ 11/18/20 21:00 02/16/21 20:59 Gabapentin (Neurontin) 300 mg THREE TIMES A DAY ORAL 11/14/20 18:00 12/14/20 17:59 11/16/20 17:43 Hydralazine HCl (Apresoline) 50 mg Q8HR ORAL 11/15/20 14:00 02/13/21 13:59 11/16/20 15:07 Insulin Aspart (NovoLOG) BEFORE MEALS AND HS SUBQ 11/16/20 11:30 02/14/21 11:29 11/16/20 16:37 Lactulose (Cephulac) 20 gm DAILY ORAL 11/15/20 09:00 12/15/20 08:59 11/16/20 08:22 Levothyroxine Sodium (Synthroid) 88 mcg DAILY@0630 ORAL 11/15/20 06:30 12/15/20 06:29 11/16/20 05:46 Pantoprazole (Protonix) 40 mg BID ORAL 11/14/20 18:00 12/14/20 17:59 11/16/20 17:44 Sevelamer Carbonate (Renvela) 1,600 mg THREE TIMES A DAY ORAL 11/16/20 18:00 02/14/21 17:59 11/16/20 17:44 Tramadol HCl (Ultram) 50 mg Q6H PRN ORAL For Pain 11/15/20 20:30 11/22/20 20:29 11/16/20 05:45 Trazodone HCl (Desyrel) 50 mg BEDTIME ORAL 11/14/20 21:00 12/14/20 20:59 11/15/20 21:14 Vitamin D (Vitamin D) 400 unit DAILY ORAL 11/16/20 09:00 12/16/20 08:59 11/16/20 09:19 Zinc Sulfate (Zinc Sulfate) 220 mg DAILY ORAL 11/16/20 09:00 02/14/21 08:59 11/16/20 09:19 Allergies: Coded Allergies: ACETAMINOPHEN (Verified Allergy, Unknown, 11/12/20) MORPHINE (Verified Allergy, Unknown, 11/12/20) ROS Limited/Unobtainable: Yes Subjective 60 YO F with history of end stage renal disease, on HD, admitted with hypotension. Objective Last Vital Signs Date Time Temp Pulse Resp B/P (MAP) Pulse Ox O2 Delivery O2 Flow Rate FiO2 11/16/20 17:44 78 150/79 11/16/20 16:00 98.2 16 100 11/16/20 16:00 Nasal Cannula 1.0 Laboratory Tests Test 11/16/20 04:15 11/16/20 06:18 11/16/20 11:14 11/16/20 16:20 White Blood Count 8.0 K/UL (4.8-10.8) Red Blood Count 3.60 M/UL (4.20-5.40) L Hemoglobin 7.5 G/DL (12.0-16.0) L Hematocrit 25.0 % (37.0-47.0) L Mean Corpuscular Volume 70 FL (80-99) L Mean Corpuscular Hemoglobin 20.9 PG (27.0-31.0) L Mean Corpuscular Hemoglobin Concent 30.1 G/DL (32.0-36.0) L Red Cell Distribution Width 21.8 % (11.6-14.8) H Platelet Count 142 K/UL (150-450) L Mean Platelet Volume 9.5 FL (6.5-10.1) Neutrophils (%) (Auto) % (45.0-75.0) Lymphocytes (%) (Auto) % (20.0-45.0) Monocytes (%) (Auto) % (1.0-10.0) Eosinophils (%) (Auto) % (0.0-3.0) Basophils (%) (Auto) % (0.0-2.0) Differential Total Cells Counted 100 Neutrophils % (Manual) 69 % (45-75) Lymphocytes % (Manual) 21 % (20-45) Monocytes % (Manual) 9 % (1-10) Eosinophils % (Manual) 1 % (0-3) Basophils % (Manual) 0 % (0-2) Band Neutrophils 0 % (0-8) Platelet Estimate Decreased L Platelet Morphology Normal Giant Platelets Occasional Hypochromasia 1+ Anisocytosis 3+ Microcytosis 1+ Target Cells Occasional Sodium Level 132 MMOL/L (136-145) L Potassium Level 4.7 MMOL/L (3.5-5.1) Chloride Level 100 MMOL/L (98-107) Carbon Dioxide Level 24 MMOL/L (21-32) Anion Gap 8 mmol/L (5-15) Blood Urea Nitrogen 43 mg/dL (7-18) H Creatinine 3.6 MG/DL (0.55-1.30) H Estimat Glomerular Filtration Rate 12.8 mL/min (>60) Glucose Level 547 MG/DL (74-106) #*H Uric Acid 5.7 MG/DL (2.6-7.2) Calcium Level 7.2 MG/DL (8.5-10.1) L Phosphorus Level 6.7 MG/DL (2.5-4.9) H Magnesium Level 2.2 MG/DL (1.8-2.4) Total Bilirubin 0.4 MG/DL (0.2-1.0) Direct Bilirubin 0.2 MG/DL (0.0-0.3) Aspartate Amino Transf (AST/SGOT) 24 U/L (15-37) Alanine Aminotransferase (ALT/SGPT) 34 U/L (12-78) Alkaline Phosphatase 489 U/L (46-116) H C-Reactive Protein, Quantitative 1.1 mg/dL (0.00-0.90) H Pro-B-Type Natriuretic Peptide 42807 pg/mL (0-125) H Total Protein 6.0 G/DL (6.4-8.2) L Albumin 1.9 G/DL (3.4-5.0) L POC Whole Blood Glucose 505 MG/DL (74-106) *H 301 MG/DL (74-106) H 341 MG/DL (74-106) H Microbiology Date/Time Source Procedure Growth Status 11/14/20 14:20 Rectum - Final NO CARBAPENEM-RESISTANT ENTEROBACTERI... Complete 11/14/20 14:20 Rectum VRE Culture - Final Enterococcus Faecium - Vre Enterococcus Faecalis - Vre Complete 11/14/20 14:20 Nasal Nares MRSA Culture - Final NO METHICILLIN RESISTANT STAPH AUREUS... Complete 11/14/20 11:16 Nasal Nares - Final Complete 11/14/20 11:16 Nasal Nares - Final Complete 11/14/20 10:50 Nasopharynx SARS-CoV-2 RdRp Gene Assay - Final Complete 11/14/20 10:50 Blood Blood Culture - Preliminary NO GROWTH AFTER 24 HOURS Resulted 11/14/20 10:35 Blood Blood Culture - Preliminary NO GROWTH AFTER 24 HOURS Resulted Intake and Output 11/15/20 11/16/20 19:00 07:00 Intake Total 100 ml Balance 100 ml Intake Oral 100 ml # Voids 1 # Bowel Movements 4 2 Objective Objective GENERAL: awake, more responsive chronically ill-appearing, cachectic, malnutrition HEAD AND NECK: Pupils are equal and reactive to light. Anicteric. Neck was supple. No JVD. LUNGS: fair inspiratory effort, with decreased air at the bases, No wheeze or rhonchi. HEART: S1, S2. Distant heart sounds. No murmur or gallop. CHEST WALL: PermCath on the right side of chest wall. No sign of infection. ABDOMEN: Soft, nondistended, and nontender. Positive bowel sounds. EXTREMITIES: No cyanosis, clubbing, or edema. Muscle atrophy bilateral lower extremities NEUROLOGIC: CREDIT FRONT OFFICE DEVELOPER 2 through 12 grossly intact, motor 5/5 on all extremities. RECTAL: Refused and deferred. : Refused and deferred. PSYCHIATRIC: Mood and affect intact. Assessment/Plan Assessment/Plan ASSESSMENT: 1. End-stage renal disease, on hemodialysis. 2. Hyperkalemia. 3. COVID-I9 pneumonia, recovered. 4. Severe protein-calorie malnutrition. 5. Anemia of chronic kidney disease. 6. Hypotension. 7. Hypothyroidism. PLAN: Admit the patient to step-down. We will follow up with Dr. Edi Quintanilla, nephrology consultation as well as Dr. Roland Brink, Pulmonary Critical Care, and Dr. Cynthia Weems from Infectious Disease. We will monitor laboratory closely. Code status at this time is Full Code. DVT prophylaxis, heparin subcutaneous. We will resume mcfp medication and consider to start the patient on dialysis. Oswald Madrid MD Nov 16, 2020 18:45
--- NOTE | 2020-11-16 19:20 | NUR ---
NURSE NOTES: Received report from MICH Noble. Pt is A/O x4 and verbally responsive. No SOB or acute distress noted. Slight pain noted with headache and tramadol given by previous nurse. Pt is on nasal canula 1L with saturation of 96%. choir singer shows NSR. Pt has a IV on LH 22G which is flushed and intact. Pt has 1 unit of blood running and tolerating well. Bed is locked and in lowest position, bed alarm on with side rails x2 and locked. Will continue with the plan of care
[2020-11-16] MEDS: Dyna-Hex 2% Top Sol 2oz TOPIC SCH (20:07)
[2020-11-16] MEDS: TraZODone 50mg tab ORAL SCH (21:24)
--- NOTE | 2020-11-16 22:07 | NUR ---
NURSE NOTES: Pt finished 1 unit of PRBC's with no ASE noted. Blood tubing returned to the lab.
[2020-11-17] VITALS: BP 148/80
[2020-11-17] MEDS: traMADol 50mg tab ORAL PRN ×3 (01:32→14:10)
[2020-11-17 04:00] VITALS: BP 145/76
--- NOTE | 2020-11-17 05:02 | NUR ---
NURSE NOTES: Received report from MICH Merida. Pt is asleep, no distress noted. SpO2 99% on 1L NC, NSR on nuclear monitoring technician. Will continue plan of care. Will continue to monitor.
[2020-11-17] MEDS: HydrALAZINE 50mg tab ORAL SCH ×3 (05:30→20:26)
--- NOTE | 2020-11-17 06:10 | NUR ---
NURSE NOTES: Cleaned pt, changed linens and gown. R big toe has stopped bleeding. Pt refused to have bandage placed despite education about a potential infection. Will continue to monitor.
[2020-11-17] MEDS: NovoLOG Insulin Flexpen SUBQ SCH ×4 (06:29→21:23)
--- NOTE | 2020-11-17 07:17 | NUR ---
NURSE HAND-OFF REPORT: Important Events on Shift:[Transferred to Tele] Patient Status: [Stable] Diet: [Regular] Pending Orders: [NA] Pending Results/Labs:[NA] Pending MD notification:[NA] Latest Vital Signs: Temperature 97.9 , Pulse 74 , B/P 145 /76 , Respiratory Rate 16 , O2 SAT 100 , Non-Rebreather, O2 Flow Rate 1.0 . Vital Sign Comment: [Stable] EKG Rhythm: Sinus Rhythm Rhythm change?: N MD Notified?: - MD Response: Latest Rouse Fall Score: 45 Fall Risk: High Risk Safety Measures: Call light Within Reach, Bed Alarm Zone 1, Side Rails Side Rails x2, Bed position Low and Locked. Fall Precautions: Yellow Socks Yellow Gown Door Sign Patient Fall Education Report given to [MICH Noble].
--- NOTE | 2020-11-17 07:31 | NUR ---
NURSE NOTES: Received report from MICH Ugarte from SDU. Pt is resting comfortably in bed. No acute distress or complaints noted. Pt is on nasal canula 1L with unlabored and even respirations. Pt is stable on RA but requests O2 for comfort. hall monitor shows NSR. Pt has a IV on R hand, asymptomatic and intact. Pt R big toe wound. Bed is locked and in lowest position, bed alarm on with side rails x2 and call light in reach.
[2020-11-17 07:39] LABS: BASOPHILS % (AUTO) 0.6 % (0.0-2.0); EOSINOPHILS % (AUTO) 2.5 % (0.0-3.0); HEMATOCRIT 33.7 % (37.0-47.0); HEMOGLOBIN 10.3 G/DL (12.0-16.0); LYMPHOCYTES % (AUTO) 13.8 % (20.0-45.0); MEAN CORPUSCULAR VOLUME 70 FL (80-99); MONOCYTES % (AUTO) 5.3 % (1.0-10.0); NEUTROPHILS % (AUTO) 77.8 % (45.0-75.0); PLATELET COUNT 187 K/UL (150-450); RED CELL DISTRIBUTION WIDTH 19.7 % (11.6-14.8); WHITE BLOOD COUNT 9.1 K/UL (4.8-10.8)
[2020-11-17 07:54] LABS: ALBUMIN 2.2 G/DL (3.4-5.0); ALBUMIN/GLOBULIN RATIO 0.5 (1.0-2.7); BILIRUBIN,TOTAL 0.7 MG/DL (0.2-1.0); CALCIUM 7.9 MG/DL (8.5-10.1); CREATININE 3.9 MG/DL (0.55-1.30); POTASSIUM 4.1 MMOL/L (3.5-5.1)
[2020-11-17 08:00] VITALS: BP 167/89
[2020-11-17] MEDS: Lactulose 20gm/30ml UDC ORAL SCH (08:09)
[2020-11-17] MEDS: Ascorbic Acid 500mg tab ORAL SCH ×2 (08:09→17:09)
[2020-11-17] MEDS: Enoxaparin 30mg Inj SUBQ SCH (08:10)
[2020-11-17] MEDS: Zinc Sulfate 220mg ORAL SCH (08:10)
[2020-11-17] MEDS: Docusate 100mg cap ORAL SCH ×3 (08:11→17:08)
[2020-11-17] MEDS: Vitamin D 400 units TAB ORAL SCH (08:11)
[2020-11-17] MEDS: Aspirin Baby 81mg ORAL SCH (08:11)
[2020-11-17] MEDS: dexAMETHasone 10mg/ml Inj IV SCH (08:13)
--- NOTE | 2020-11-17 08:21 | Pulmonology Progress Note ---
Subjective ROS Limited/Unobtainable: Yes Allergies: Coded Allergies: ACETAMINOPHEN (Verified Allergy, Unknown, 11/12/20) MORPHINE (Verified Allergy, Unknown, 11/12/20) Subjective now down to 1 L O2 via NC clinically better Objective Last 24 Hour Vital Signs Date Time Temp Pulse Resp B/P (MAP) Pulse Ox O2 Delivery O2 Flow Rate FiO2 11/17/20 05:30 145/76 11/17/20 04:00 97.9 80 16 145/76 (99) 100 11/17/20 04:00 Nasal Cannula 1.0 11/17/20 04:00 1.0 11/17/20 04:00 74 11/17/20 00:00 Nasal Cannula 1.0 11/17/20 00:00 97.9 72 16 148/80 (102) 100 11/16/20 21:25 151/89 11/16/20 20:00 97.6 74 18 151/89 (109) 100 11/16/20 20:00 1.0 11/16/20 20:00 75 11/16/20 20:00 Nasal Cannula 1.0 11/16/20 17:44 78 150/79 11/16/20 16:00 98.2 77 16 150/70 (96) 100 11/16/20 16:00 Nasal Cannula 1.0 11/16/20 16:00 1.0 11/16/20 15:49 77 11/16/20 15:07 139/74 11/16/20 15:00 97.0 74 18 139/74 (95) 100 11/16/20 12:00 68 11/16/20 12:00 97.0 71 17 130/72 (91) 100 11/16/20 12:00 Nasal Cannula 2.0 11/16/20 12:00 2.0 11/16/20 09:00 70 17 129/70 (89) 100 Intake and Output 11/16/20 11/17/20 19:00 07:00 Intake Total 750 ml 420 ml Balance 750 ml 420 ml Intake Oral 750 ml 420 ml # Voids 2 1 # Bowel Movements 2 Objective General Appearance: cachetic; awake, chronically ill looking female in NAD Lines, tubes and drains: peripheral HEENT: normocephalic, atraumatic, anicteric, mucous membranes moist, 1 L O2 via NC Neck: non-tender, supple Respiratory/Chest: chest wall non-tender, no accessory muscle use, decreased breath sounds, R chest HD catheter in place Cardiovascular/Chest: normal rate, regular rhythm Abdomen: normal bowel sounds, non tender, soft Extremities: no calf tenderness, no edema Neurologic: abnormal gait - bedridden , alert, responsive Musculoskeletal: atrophy - BLE Microbiology Date/Time Source Procedure Growth Status 11/14/20 14:20 Rectum - Final NO CARBAPENEM-RESISTANT ENTEROBACTERI... Complete 11/14/20 14:20 Rectum VRE Culture - Final Enterococcus Faecium - Vre Enterococcus Faecalis - Vre Complete 11/14/20 14:20 Nasal Nares MRSA Culture - Final NO METHICILLIN RESISTANT STAPH AUREUS... Complete 11/14/20 11:16 Nasal Nares - Final Complete 11/14/20 11:16 Nasal Nares - Final Complete 11/14/20 10:50 Nasopharynx SARS-CoV-2 RdRp Gene Assay - Final Complete 11/14/20 10:50 Blood Blood Culture - Preliminary NO GROWTH AFTER 48 HOURS Resulted 11/14/20 10:35 Blood Blood Culture - Preliminary NO GROWTH AFTER 48 HOURS Resulted Laboratory Tests 11/16/20 11:14: POC Whole Blood Glucose 301H 11/16/20 16:20: POC Whole Blood Glucose 341H 11/16/20 21:32: POC Whole Blood Glucose 362H 11/17/20 05:09: White Blood Count 9.1, Red Blood Count 4.80, Hemoglobin 10.3#L, Hematocrit 33.7#L, Mean Corpuscular Volume 70L, Mean Corpuscular Hemoglobin 21.5L, Mean Corpuscular Hemoglobin Concent 30.6L, Red Cell Distribution Width 19.7H, Platelet Count 187, Mean Platelet Volume 9.5, Neutrophils (%) (Auto) 77.8H, Lymphocytes (%) (Auto) 13.8L, Monocytes (%) (Auto) 5.3, Eosinophils (%) (Auto) 2.5, Basophils (%) (Auto) 0.6, Sodium Level 134L, Potassium Level 4.1, Chloride Level 102, Carbon Dioxide Level 24, Anion Gap 8, Blood Urea Nitrogen 49H, Creatinine 3.9H, Estimat Glomerular Filtration Rate 11.7, Glucose Level 128#H, Calcium Level 7.9L, Phosphorus Level [Pending], Magnesium Level [Pending], Total Bilirubin 0.7, Aspartate Amino Transf (AST/SGOT) 26, Alanine Aminotransferase (ALT/SGPT) 35, Alkaline Phosphatase 537H, C-Reactive Protein, Quantitative [Pending], Pro-B-Type Natriuretic Peptide [Pending], Total Protein 7.0, Albumin 2.2L, Globulin 4.8, Albumin/Globulin Ratio 0.5L 11/17/20 05:32: POC Whole Blood Glucose 122H Current Medications Medications (Trade) Dose Ordered Sig/Nisa Route PRN Reason Start Time Stop Time Status Last Admin Dose Admin Albuterol Sulfate (Proventil MDI) 2 puff Q4H PRN INH Shortness of Breath 11/15/20 10:45 02/13/21 10:44 Amlodipine Besylate (Norvasc) 5 mg BID ORAL 11/14/20 18:00 12/14/20 17:59 11/16/20 17:44 Ascorbic Acid (Vitamin C) 500 mg TWICE A DAY ORAL 11/15/20 18:00 12/15/20 17:59 11/17/20 08:09 Aspirin (ASA) 81 mg DAILY ORAL 11/15/20 09:00 12/30/20 08:59 11/17/20 08:11 Bisacodyl (Dulcolax) 10 mg DAILYPRN PRN RECTAL constipation 11/14/20 16:00 02/12/21 15:59 Chlorhexidine Gluconate (Guera-Hex 2%) 1 applic DAILY@2000 TOPIC 11/15/20 20:00 02/13/21 19:59 11/16/20 20:07 Clonidine HCl (Catapres Tab) 0.1 mg Q4H PRN ORAL bp over 165 syst 11/14/20 16:00 02/12/21 15:59 11/15/20 11:29 Dexamethasone Sodium Phosphate (Decadron 10mg/ ml Inj) 6 mg DAILY IV 11/14/20 21:30 11/23/20 09:01 11/17/20 08:13 Dextrose (Dextrose 50%) 25 ml Q30M PRN IV Hypoglycemia 11/16/20 07:30 02/14/21 07:29 Dextrose (Dextrose 50%) 50 ml Q30M PRN IV Hypoglycemia 11/16/20 07:30 02/14/21 07:29 Docusate Sodium (Colace) 100 mg TID ORAL 11/14/20 18:00 12/14/20 17:59 11/17/20 08:11 Enoxaparin Sodium (Lovenox) 30 mg DAILY SUBQ 11/16/20 09:00 02/14/21 08:59 11/17/20 08:10 Epoetin Cheikh (Epoetin Cheikh(ESRD on dialysis)) 10,000 unit WED-WED-WED SUBQ 11/18/20 21:00 02/16/21 20:59 Gabapentin (Neurontin) 300 mg THREE TIMES A DAY ORAL 11/14/20 18:00 12/14/20 17:59 11/17/20 08:10 Hydralazine HCl (Apresoline) 50 mg Q8HR ORAL 11/15/20 14:00 02/13/21 13:59 11/17/20 05:30 Insulin Aspart (NovoLOG) BEFORE MEALS AND HS SUBQ 11/16/20 11:30 02/14/21 11:29 11/16/20 21:41 Lactulose (Cephulac) 20 gm DAILY ORAL 11/15/20 09:00 12/15/20 08:59 11/17/20 08:09 Levothyroxine Sodium (Synthroid) 88 mcg DAILY@0630 ORAL 11/15/20 06:30 12/15/20 06:29 11/17/20 05:30 Pantoprazole (Protonix) 40 mg BID ORAL 11/14/20 18:00 12/14/20 17:59 11/17/20 08:11 Sevelamer Carbonate (Renvela) 1,600 mg THREE TIMES A DAY ORAL 11/16/20 18:00 02/14/21 17:59 11/17/20 08:10 Tramadol HCl (Ultram) 50 mg Q6H PRN ORAL For Pain 11/15/20 20:30 11/22/20 20:29 11/17/20 08:09 Trazodone HCl (Desyrel) 50 mg BEDTIME ORAL 11/14/20 21:00 12/14/20 20:59 11/16/20 21:24 Vitamin D (Vitamin D) 400 unit DAILY ORAL 11/16/20 09:00 12/16/20 08:59 11/17/20 08:11 Zinc Sulfate (Zinc Sulfate) 220 mg DAILY ORAL 11/16/20 09:00 02/14/21 08:59 11/17/20 08:10 Assessment/Plan Assessment/Plan ASSESSMENT COVID-19 pneumonia Acute hypoxemic respiratory failure 2/2 pneumonia- requiting NRM initially ESRD, on HD Hypotension, initially -resolved HTN Protein calorie malnutrition Hypoalbuminemia Anemia of chronic kidney disease Hypothyroidism Hyperglycemia due to steroid use PLAN OF CARE tele Date of sx onset: few days prior to presentation to ED Positive test: rapid COVID 19 11/14 + O2 1 L NC HFA Dex Day# 4 ( 11/14 -) Not a candidate for REM given renal failure DVT PPX: Lovenox D dimer -3.85 Venous Duplex BLE 11/15 NGT Trend CRP-1.6 -1.1 abx per ID recs -currently off abx as per ID rec supportive care: vit A, D and zinc fup with imaging encourage prone position as tolerated monitor volumes and renal function Fup with consultants recs FC BS management ( s/p 1 dose of Insulin 10 u due to hyperglycemia) started SSI no concentrated sweets diet pt is not diabetic HgA1c 5.3 hyperglycemia likely due to steroids HD as per nephro recs BP management with current regimen and optimize further as needed continue levothyroxine, TSH WNL monitor HH with goal to keep Hgb above 7 dietary eval clinically improving dc plan soon case discussed and evaluated by supervising physician Giselle Valentin NP Nov 17, 2020 08:21
[2020-11-17 08:47] LABS: PHOSPHORUS 5.1 MG/DL (2.5-4.9)
--- NOTE | 2020-11-17 10:58 | Infectious Diseases Prog Note ---
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 Appearance is nonspecific, may reflect bilateral infiltrates versus edema/fluid overload. Flu neg MRSA nares neg BLE US neg for DVT 11/15 ESRD on HD From SNF Plan: Cont dex 6mg daily #4/ given desats Monitor off abx, doing well from resp standpoint and normal WBC Not candidate for RDV given ESRD Convalescent plasma not available at this institution and pt too far out from dx to benefit Monitor CBC/CMP Monitor resp status Monitor temp curve, hemodynamics D/w RN Thank you for this consult. [facility] will continue to follow. Subjective Allergies: Coded Allergies: ACETAMINOPHEN (Verified Allergy, Unknown, 11/12/20) MORPHINE (Verified Allergy, Unknown, 11/12/20) AF Satting well on 1L NC >> on exam on RA, no breathing complaints WBC 9.1 Objective Last 24 Hour Vital Signs Date Time Temp Pulse Resp B/P (MAP) Pulse Ox O2 Delivery O2 Flow Rate FiO2 11/17/20 10:37 78 167/89 11/17/20 09:00 Nasal Cannula 1.0 11/17/20 08:38 97.9 11/17/20 08:00 78 11/17/20 08:00 97.7 66 18 167/89 (115) 100 11/17/20 08:00 1.0 11/17/20 05:30 145/76 11/17/20 04:00 97.9 80 16 145/76 (99) 100 11/17/20 04:00 Nasal Cannula 1.0 11/17/20 04:00 1.0 11/17/20 04:00 74 11/17/20 00:00 Nasal Cannula 1.0 11/17/20 00:00 97.9 72 16 148/80 (102) 100 11/16/20 21:25 151/89 11/16/20 20:00 97.6 74 18 151/89 (109) 100 11/16/20 20:00 1.0 11/16/20 20:00 75 11/16/20 20:00 Nasal Cannula 1.0 11/16/20 17:44 78 150/79 11/16/20 16:00 98.2 77 16 150/70 (96) 100 11/16/20 16:00 Nasal Cannula 1.0 11/16/20 16:00 1.0 11/16/20 15:49 77 11/16/20 15:07 139/74 11/16/20 15:00 97.0 74 18 139/74 (95) 100 11/16/20 12:00 68 11/16/20 12:00 97.0 71 17 130/72 (91) 100 11/16/20 12:00 Nasal Cannula 2.0 11/16/20 12:00 2.0 Height (Feet): 5 Height (Inches): 3.00 Weight (Pounds): 90 Cardiovascular: normal peripheral pulses Gen: NAD HEENT: NCAT Pulm: BL chest rise Abd: Non-distended Ext: No c/c/e Skin: No visible rashes Neuro: Awake Microbiology Date/Time Source Procedure Growth Status 11/14/20 14:20 Rectum - Final NO CARBAPENEM-RESISTANT ENTEROBACTERI... Complete 11/14/20 14:20 Rectum VRE Culture - Final Enterococcus Faecium - Vre Enterococcus Faecalis - Vre Complete 11/14/20 14:20 Nasal Nares MRSA Culture - Final NO METHICILLIN RESISTANT STAPH AUREUS... Complete 11/14/20 11:16 Nasal Nares - Final Complete 11/14/20 11:16 Nasal Nares - Final Complete Laboratory Tests Test 11/16/20 11:14 11/16/20 16:20 11/16/20 21:32 11/17/20 05:09 POC Whole Blood Glucose 301 MG/DL (74-106) H 341 MG/DL (74-106) H 362 MG/DL (74-106) H White Blood Count 9.1 K/UL (4.8-10.8) Red Blood Count 4.80 M/UL (4.20-5.40) Hemoglobin 10.3 G/DL (12.0-16.0) #L Hematocrit 33.7 % (37.0-47.0) #L Mean Corpuscular Volume 70 FL (80-99) L Mean Corpuscular Hemoglobin 21.5 PG (27.0-31.0) L Mean Corpuscular Hemoglobin Concent 30.6 G/DL (32.0-36.0) L Red Cell Distribution Width 19.7 % (11.6-14.8) H Platelet Count 187 K/UL (150-450) Mean Platelet Volume 9.5 FL (6.5-10.1) Neutrophils (%) (Auto) 77.8 % (45.0-75.0) H Lymphocytes (%) (Auto) 13.8 % (20.0-45.0) L Monocytes (%) (Auto) 5.3 % (1.0-10.0) Eosinophils (%) (Auto) 2.5 % (0.0-3.0) Basophils (%) (Auto) 0.6 % (0.0-2.0) Sodium Level 134 MMOL/L (136-145) L Potassium Level 4.1 MMOL/L (3.5-5.1) Chloride Level 102 MMOL/L (98-107) Carbon Dioxide Level 24 MMOL/L (21-32) Anion Gap 8 mmol/L (5-15) Blood Urea Nitrogen 49 mg/dL (7-18) H Creatinine 3.9 MG/DL (0.55-1.30) H Estimat Glomerular Filtration Rate 11.7 mL/min (>60) Glucose Level 128 MG/DL (74-106) #H Calcium Level 7.9 MG/DL (8.5-10.1) L Phosphorus Level 5.1 MG/DL (2.5-4.9) H Magnesium Level 2.1 MG/DL (1.8-2.4) Total Bilirubin 0.7 MG/DL (0.2-1.0) Aspartate Amino Transf (AST/SGOT) 26 U/L (15-37) Alanine Aminotransferase (ALT/SGPT) 35 U/L (12-78) Alkaline Phosphatase 537 U/L (46-116) H C-Reactive Protein, Quantitative 0.5 mg/dL (0.00-0.90) Pro-B-Type Natriuretic Peptide 52696 pg/mL (0-125) H Total Protein 7.0 G/DL (6.4-8.2) Albumin 2.2 G/DL (3.4-5.0) L Globulin 4.8 g/dL Albumin/Globulin Ratio 0.5 (1.0-2.7) L Test 11/17/20 05:32 POC Whole Blood Glucose 122 MG/DL (74-106) H Current Medications Medications (Trade) Dose Ordered Sig/Nisa Route PRN Reason Start Time Stop Time Status Last Admin Dose Admin Albuterol Sulfate (Proventil MDI) 2 puff Q4H PRN INH Shortness of Breath 11/15/20 10:45 02/13/21 10:44 Amlodipine Besylate (Norvasc) 5 mg BID ORAL 11/14/20 18:00 12/14/20 17:59 11/17/20 10:37 Ascorbic Acid (Vitamin C) 500 mg TWICE A DAY ORAL 11/15/20 18:00 12/15/20 17:59 11/17/20 08:09 Aspirin (ASA) 81 mg DAILY ORAL 11/15/20 09:00 12/30/20 08:59 11/17/20 08:11 Bisacodyl (Dulcolax) 10 mg DAILYPRN PRN RECTAL constipation 11/14/20 16:00 02/12/21 15:59 Chlorhexidine Gluconate (Guera-Hex 2%) 1 applic DAILY@2000 TOPIC 11/15/20 20:00 02/13/21 19:59 11/16/20 20:07 Clonidine HCl (Catapres Tab) 0.1 mg Q4H PRN ORAL bp over 165 syst 11/14/20 16:00 02/12/21 15:59 11/15/20 11:29 Dexamethasone Sodium Phosphate (Decadron 10mg/ ml Inj) 6 mg DAILY IV 11/14/20 21:30 11/23/20 09:01 11/17/20 08:13 Dextrose (Dextrose 50%) 25 ml Q30M PRN IV Hypoglycemia 11/16/20 07:30 02/14/21 07:29 Dextrose (Dextrose 50%) 50 ml Q30M PRN IV Hypoglycemia 11/16/20 07:30 02/14/21 07:29 Docusate Sodium (Colace) 100 mg TID ORAL 11/14/20 18:00 12/14/20 17:59 11/17/20 08:11 Enoxaparin Sodium (Lovenox) 30 mg DAILY SUBQ 11/16/20 09:00 02/14/21 08:59 11/17/20 08:10 Epoetin Cheikh (Epoetin Cheikh(ESRD on dialysis)) 10,000 unit WED-WED-WED SUBQ 11/18/20 21:00 02/16/21 20:59 Gabapentin (Neurontin) 300 mg THREE TIMES A DAY ORAL 11/14/20 18:00 12/14/20 17:59 11/17/20 08:10 Hydralazine HCl (Apresoline) 50 mg Q8HR ORAL 11/15/20 14:00 02/13/21 13:59 11/17/20 05:30 Insulin Aspart (NovoLOG) BEFORE MEALS AND HS SUBQ 11/16/20 11:30 02/14/21 11:29 11/16/20 21:41 Lactulose (Cephulac) 20 gm DAILY ORAL 11/15/20 09:00 12/15/20 08:59 11/17/20 08:09 Levothyroxine Sodium (Synthroid) 88 mcg DAILY@0630 ORAL 11/15/20 06:30 12/15/20 06:29 11/17/20 05:30 Pantoprazole (Protonix) 40 mg BID ORAL 11/14/20 18:00 12/14/20 17:59 11/17/20 08:11 Sevelamer Carbonate (Renvela) 1,600 mg THREE TIMES A DAY ORAL 11/16/20 18:00 02/14/21 17:59 11/17/20 08:10 Tramadol HCl (Ultram) 50 mg Q6H PRN ORAL For Pain 11/15/20 20:30 11/22/20 20:29 11/17/20 08:09 Trazodone HCl (Desyrel) 50 mg BEDTIME ORAL 11/14/20 21:00 12/14/20 20:59 11/16/20 21:24 Vitamin D (Vitamin D) 400 unit DAILY ORAL 11/16/20 09:00 12/16/20 08:59 11/17/20 08:11 Zinc Sulfate (Zinc Sulfate) 220 mg DAILY ORAL 11/16/20 09:00 02/14/21 08:59 11/17/20 08:10 Cynthia Weems M.D. Nov 17, 2020 10:58
--- NOTE | 2020-11-17 11:00 | NUR ---
NURSE NOTES: Pt off NC. Pt 99% on RA, unlabored even breathing.
[2020-11-17 12:00] VITALS: BP 168/90
--- NOTE | 2020-11-17 12:37 | NUR ---
NURSE NOTES: Pt changed, linen changed. pt provided with wipes to clean self. No SOB on exertion on RA. Pt tolerating RA well.
--- NOTE | 2020-11-17 13:40 | Surgery Progress Note ---
Surgery Progress Note Subjective Symptoms: improved, pain absent, tolerating diet, passing flatus, BM Objective Last 24 Hour Vital Signs Date Time Temp Pulse Resp B/P (MAP) Pulse Ox O2 Delivery O2 Flow Rate FiO2 11/17/20 12:00 97.9 78 16 168/90 (116) 100 11/17/20 12:00 75 11/17/20 10:37 78 167/89 11/17/20 09:00 Nasal Cannula 1.0 11/17/20 08:38 97.9 11/17/20 08:00 78 11/17/20 08:00 97.7 66 18 167/89 (115) 100 11/17/20 08:00 1.0 11/17/20 05:30 145/76 11/17/20 04:00 97.9 80 16 145/76 (99) 100 11/17/20 04:00 Nasal Cannula 1.0 11/17/20 04:00 1.0 11/17/20 04:00 74 11/17/20 00:00 Nasal Cannula 1.0 11/17/20 00:00 97.9 72 16 148/80 (102) 100 11/16/20 21:25 151/89 11/16/20 20:00 97.6 74 18 151/89 (109) 100 11/16/20 20:00 1.0 11/16/20 20:00 75 11/16/20 20:00 Nasal Cannula 1.0 11/16/20 17:44 78 150/79 11/16/20 16:00 98.2 77 16 150/70 (96) 100 11/16/20 16:00 Nasal Cannula 1.0 11/16/20 16:00 1.0 11/16/20 15:49 77 11/16/20 15:07 139/74 11/16/20 15:00 97.0 74 18 139/74 (95) 100 I&O Intake and Output 11/16/20 11/17/20 19:00 07:00 Intake Total 750 ml 420 ml Balance 750 ml 420 ml Intake Oral 750 ml 420 ml # Voids 2 1 # Bowel Movements 2 Cardiovascular: RSR Respiratory: clear, decreased breath sounds Abdomen: soft, flat, non-tender, present bowel sounds, non-distended Extremities: no edema, no tenderness, no cyanosis Laboratory Tests Test 11/16/20 16:20 11/16/20 21:32 11/17/20 05:09 11/17/20 05:32 POC Whole Blood Glucose 341 MG/DL (74-106) H 362 MG/DL (74-106) H 122 MG/DL (74-106) H White Blood Count 9.1 K/UL (4.8-10.8) Red Blood Count 4.80 M/UL (4.20-5.40) Hemoglobin 10.3 G/DL (12.0-16.0) #L Hematocrit 33.7 % (37.0-47.0) #L Mean Corpuscular Volume 70 FL (80-99) L Mean Corpuscular Hemoglobin 21.5 PG (27.0-31.0) L Mean Corpuscular Hemoglobin Concent 30.6 G/DL (32.0-36.0) L Red Cell Distribution Width 19.7 % (11.6-14.8) H Platelet Count 187 K/UL (150-450) Mean Platelet Volume 9.5 FL (6.5-10.1) Neutrophils (%) (Auto) 77.8 % (45.0-75.0) H Lymphocytes (%) (Auto) 13.8 % (20.0-45.0) L Monocytes (%) (Auto) 5.3 % (1.0-10.0) Eosinophils (%) (Auto) 2.5 % (0.0-3.0) Basophils (%) (Auto) 0.6 % (0.0-2.0) Sodium Level 134 MMOL/L (136-145) L Potassium Level 4.1 MMOL/L (3.5-5.1) Chloride Level 102 MMOL/L (98-107) Carbon Dioxide Level 24 MMOL/L (21-32) Anion Gap 8 mmol/L (5-15) Blood Urea Nitrogen 49 mg/dL (7-18) H Creatinine 3.9 MG/DL (0.55-1.30) H Estimat Glomerular Filtration Rate 11.7 mL/min (>60) Glucose Level 128 MG/DL (74-106) #H Calcium Level 7.9 MG/DL (8.5-10.1) L Phosphorus Level 5.1 MG/DL (2.5-4.9) H Magnesium Level 2.1 MG/DL (1.8-2.4) Total Bilirubin 0.7 MG/DL (0.2-1.0) Aspartate Amino Transf (AST/SGOT) 26 U/L (15-37) Alanine Aminotransferase (ALT/SGPT) 35 U/L (12-78) Alkaline Phosphatase 537 U/L (46-116) H C-Reactive Protein, Quantitative 0.5 mg/dL (0.00-0.90) Pro-B-Type Natriuretic Peptide 05471 pg/mL (0-125) H Total Protein 7.0 G/DL (6.4-8.2) Albumin 2.2 G/DL (3.4-5.0) L Globulin 4.8 g/dL Albumin/Globulin Ratio 0.5 (1.0-2.7) L Test 11/17/20 12:02 POC Whole Blood Glucose 237 MG/DL (74-106) H Plan Problems: (1) SOB (shortness of breath) (2) ESRD on dialysis Assessment & Plan: as per renal on HD planned today (3) COVID-19 Assessment & Plan: ++ per pulm and ID respiratory stable for now cxr noted Acute interstitial disease, developing since 11/12/2020. Appearance is nonspecific, may reflect bilateral infiltrates versus edema/fluid overload. (4) Hypertensive kidney disease (5) Anemia in chronic kidney disease (6) Dyspnea (7) Renal failure (8) Abnormal LFTs Assessment & Plan: Patient identified to have significant abnormal labs. G GT alk phos and LDH elevated. AST ALT normal lipase normal. Significance unknown at this time. I have been seeing it with Covid positivity at this time. Liver seems to be functional otherwise within normal limits. Hold on further imaging for this time. Continue with IV hydration dialysis. Trend labs. Will monitor with examination. Baseline abdominal examination thus far is fairly benign Renny Thornton Nov 17, 2020 13:40
--- NOTE | 2020-11-17 15:25 | Nephrology Progress Note ---
Assessment/Plan Problem List: (1) ESRD on dialysis (2) Hypertensive kidney disease (3) COVID-19 (4) SOB (shortness of breath) (5) Anemia in chronic kidney disease Assessment COVID-19, pneumonia Shortness of breath, hypoxia End-stage renal disease, right jugular dialysis catheter Low MCV anemia Plan November 17: Patient seen during dialysis. Tolerating well. Hemoglobin higher. Blood pressure medication adjusted. Continue current management. November 16: Last dialysis November 14. Will order dialysis tomorrow. Patient hemoglobin lower. 1 unit of packed RBC transfusion ordered. Blood pressure better controlled. Phos binders adjusted. Continue per consultants. November 15: Patient dialyzed last night. Labs reviewed. Patient complaining of chest tightness. Medication list reviewed. Blood pressure remains elevated at times. Will adjust blood pressure medication. Next hemodialysis again tomorrow. Previously: Hemodialysis and ultrafiltration 2D echocardiogram Keep the blood pressure blood sugar in check Anemia work-up COVID-19 pneumonia treatment per pulmonary Keep the blood pressure and blood sugar in check Subjective ROS Limited/Unobtainable: No Constitutional: Reports: malaise, weakness Objective Objective Last 24 Hour Vital Signs Date Time Temp Pulse Resp B/P (MAP) Pulse Ox O2 Delivery O2 Flow Rate FiO2 11/17/20 14:40 97.9 11/17/20 14:10 160/90 11/17/20 12:00 97.9 78 16 168/90 (116) 100 11/17/20 12:00 75 11/17/20 10:37 78 167/89 11/17/20 09:00 Nasal Cannula 1.0 11/17/20 08:38 97.9 11/17/20 08:00 78 11/17/20 08:00 97.7 66 18 167/89 (115) 100 11/17/20 08:00 1.0 11/17/20 05:30 145/76 11/17/20 04:00 97.9 80 16 145/76 (99) 100 11/17/20 04:00 Nasal Cannula 1.0 11/17/20 04:00 1.0 11/17/20 04:00 74 11/17/20 00:00 Nasal Cannula 1.0 11/17/20 00:00 97.9 72 16 148/80 (102) 100 11/16/20 21:25 151/89 11/16/20 20:00 97.6 74 18 151/89 (109) 100 11/16/20 20:00 1.0 11/16/20 20:00 75 11/16/20 20:00 Nasal Cannula 1.0 11/16/20 17:44 78 150/79 11/16/20 16:00 98.2 77 16 150/70 (96) 100 11/16/20 16:00 Nasal Cannula 1.0 11/16/20 16:00 1.0 11/16/20 15:49 77 Intake and Output 11/16/20 11/17/20 19:00 07:00 Intake Total 750 ml 420 ml Balance 750 ml 420 ml Intake Oral 750 ml 420 ml # Voids 2 1 # Bowel Movements 2 Current Medications Medications (Trade) Dose Ordered Sig/Nisa Route PRN Reason Start Time Stop Time Status Last Admin Dose Admin Albuterol Sulfate (Proventil MDI) 2 puff Q4H PRN INH Shortness of Breath 11/15/20 10:45 02/13/21 10:44 Amlodipine Besylate (Norvasc) 5 mg BID ORAL 11/14/20 18:00 12/14/20 17:59 11/17/20 10:37 Ascorbic Acid (Vitamin C) 500 mg TWICE A DAY ORAL 11/15/20 18:00 12/15/20 17:59 11/17/20 08:09 Aspirin (ASA) 81 mg DAILY ORAL 11/15/20 09:00 12/30/20 08:59 11/17/20 08:11 Bisacodyl (Dulcolax) 10 mg DAILYPRN PRN RECTAL constipation 11/14/20 16:00 02/12/21 15:59 Chlorhexidine Gluconate (Guera-Hex 2%) 1 applic DAILY@1999 TOPIC 11/15/20 20:00 02/13/21 19:59 11/16/20 20:07 Clonidine HCl (Catapres Tab) 0.1 mg Q4H PRN ORAL bp over 165 syst 11/14/20 16:00 02/12/21 15:59 11/15/20 11:29 Dexamethasone Sodium Phosphate (Decadron 10mg/ ml Inj) 6 mg DAILY IV 11/14/20 21:30 11/23/20 09:01 11/17/20 08:13 Dextrose (Dextrose 50%) 25 ml Q30M PRN IV Hypoglycemia 11/16/20 07:30 02/14/21 07:29 Dextrose (Dextrose 50%) 50 ml Q30M PRN IV Hypoglycemia 11/16/20 07:30 02/14/21 07:29 Docusate Sodium (Colace) 100 mg TID ORAL 11/14/20 18:00 12/14/20 17:59 11/17/20 12:23 Enoxaparin Sodium (Lovenox) 30 mg DAILY SUBQ 11/16/20 09:00 02/14/21 08:59 11/17/20 08:10 Epoetin Cheikh (Epoetin Cheikh(ESRD on dialysis)) 10,000 unit WED- SUBQ 11/18/20 21:00 02/16/21 20:59 Gabapentin (Neurontin) 300 mg THREE TIMES A DAY ORAL 11/14/20 18:00 12/14/20 17:59 11/17/20 12:23 Hydralazine HCl (Apresoline) 50 mg Q8HR ORAL 11/15/20 14:00 02/13/21 13:59 11/17/20 14:10 Insulin Aspart (NovoLOG) BEFORE MEALS AND HS SUBQ 11/16/20 11:30 02/14/21 11:29 11/17/20 11:30 Lactulose (Cephulac) 20 gm DAILY ORAL 11/15/20 09:00 12/15/20 08:59 11/17/20 08:09 Levothyroxine Sodium (Synthroid) 88 mcg DAILY@0630 ORAL 11/15/20 06:30 12/15/20 06:29 11/17/20 05:30 Pantoprazole (Protonix) 40 mg BID ORAL 11/14/20 18:00 12/14/20 17:59 11/17/20 08:11 Sevelamer Carbonate (Renvela) 1,600 mg THREE TIMES A DAY ORAL 11/16/20 18:00 02/14/21 17:59 11/17/20 12:24 Tramadol HCl (Ultram) 50 mg Q6H PRN ORAL For Pain 11/15/20 20:30 11/22/20 20:29 11/17/20 14:10 Trazodone HCl (Desyrel) 50 mg BEDTIME ORAL 11/14/20 21:00 12/14/20 20:59 11/16/20 21:24 Vitamin D (Vitamin D) 400 unit DAILY ORAL 11/16/20 09:00 12/16/20 08:59 11/17/20 08:11 Zinc Sulfate (Zinc Sulfate) 220 mg DAILY ORAL 11/16/20 09:00 02/14/21 08:59 11/17/20 08:10 Laboratory Tests 11/16/20 16:20: POC Whole Blood Glucose 341H 11/16/20 21:32: POC Whole Blood Glucose 362H 11/17/20 05:09: White Blood Count 9.1, Red Blood Count 4.80, Hemoglobin 10.3#L, Hematocrit 33.7#L, Mean Corpuscular Volume 70L, Mean Corpuscular Hemoglobin 21.5L, Mean Corpuscular Hemoglobin Concent 30.6L, Red Cell Distribution Width 19.7H, Platelet Count 187, Mean Platelet Volume 9.5, Neutrophils (%) (Auto) 77.8H, Lym phocytes (%) (Auto) 13.8L, Monocytes (%) (Auto) 5.3, Eosinophils (%) (Auto) 2.5, Basophils (%) (Auto) 0.6, Sodium Level 134L, Potassium Level 4.1, Chloride Level 102, Carbon Dioxide Level 24, Anion Gap 8, Blood Urea Nitrogen 49H, Creatinine 3.9H, Estimat Glomerular Filtration Rate 11.7, Glucose Level 128#H, Calcium Level 7.9L, Phosphorus Level 5.1H, Magnesium Level 2.1, Total Bilirubin 0.7, Aspartate Amino Transf (AST/SGOT) 26, Alanine Aminotransferase (ALT/SGPT) 35, Alkaline Phosphatase 537H, C-Reactive Protein, Quantitative 0.5, Pro-B-Type Natriuretic Peptide [id number], Total Protein 7.0, Albumin 2.2L, Globulin 4.8, Albumin/Globulin Ratio 0.5L 11/17/20 05:32: POC Whole Blood Glucose 122H 11/17/20 12:02: POC Whole Blood Glucose 237H Height (Feet): 5 Height (Inches): 3.00 Weight (Pounds): 90 General Appearance: no apparent distress, lethargic Cardiovascular: normal rate Respiratory/Chest: decreased breath sounds Abdomen: distended Edi Quintanilla MD Nov 17, 2020 15:25
[2020-11-17] MEDS ORDERED: Lisinopril 10mg tab ORAL SCH (15:30)
--- NOTE | 2020-11-17 15:58 | Internal Med Progress Note ---
Subjective Date of Service: Nov 17, 2020 Physician Name Oswald Madrid Attending Physician Randy Carpenter MD Current Medications Medications (Trade) Dose Ordered Sig/Nisa Route PRN Reason Start Time Stop Time Status Last Admin Dose Admin Albuterol Sulfate (Proventil MDI) 2 puff Q4H PRN INH Shortness of Breath 11/15/20 10:45 02/13/21 10:44 Amlodipine Besylate (Norvasc) 5 mg BID ORAL 11/14/20 18:00 12/14/20 17:59 11/17/20 10:37 Ascorbic Acid (Vitamin C) 500 mg TWICE A DAY ORAL 11/15/20 18:00 12/15/20 17:59 11/17/20 08:09 Aspirin (ASA) 81 mg DAILY ORAL 11/15/20 09:00 12/30/20 08:59 11/17/20 08:11 Bisacodyl (Dulcolax) 10 mg DAILYPRN PRN RECTAL constipation 11/14/20 16:00 02/12/21 15:59 Chlorhexidine Gluconate (Guera-Hex 2%) 1 applic DAILY@2000 TOPIC 11/15/20 20:00 02/13/21 19:59 11/16/20 20:07 Clonidine HCl (Catapres Tab) 0.1 mg Q4H PRN ORAL bp over 165 syst 11/14/20 16:00 02/12/21 15:59 11/15/20 11:29 Dexamethasone Sodium Phosphate (Decadron 10mg/ ml Inj) 6 mg DAILY IV 11/14/20 21:30 11/23/20 09:01 11/17/20 08:13 Dextrose (Dextrose 50%) 25 ml Q30M PRN IV Hypoglycemia 11/16/20 07:30 02/14/21 07:29 Dextrose (Dextrose 50%) 50 ml Q30M PRN IV Hypoglycemia 11/16/20 07:30 02/14/21 07:29 Docusate Sodium (Colace) 100 mg TID ORAL 11/14/20 18:00 12/14/20 17:59 11/17/20 12:23 Enoxaparin Sodium (Lovenox) 30 mg DAILY SUBQ 11/16/20 09:00 02/14/21 08:59 11/17/20 08:10 Epoetin Cheikh (Epoetin Cheikh(ESRD on dialysis)) 10,000 unit WED-WED-WED SUBQ 11/18/20 21:00 02/16/21 20:59 Gabapentin (Neurontin) 300 mg THREE TIMES A DAY ORAL 11/14/20 18:00 12/14/20 17:59 11/17/20 12:23 Hydralazine HCl (Apresoline) 50 mg Q8HR ORAL 11/15/20 14:00 02/13/21 13:59 11/17/20 14:10 Insulin Aspart (NovoLOG) BEFORE MEALS AND HS SUBQ 11/16/20 11:30 02/14/21 11:29 11/17/20 11:30 Lactulose (Cephulac) 20 gm DAILY ORAL 11/15/20 09:00 12/15/20 08:59 11/17/20 08:09 Levothyroxine Sodium (Synthroid) 88 mcg DAILY@0630 ORAL 11/15/20 06:30 12/15/20 06:29 11/17/20 05:30 Lisinopril (ZestriL) 10 mg DAILY ORAL 11/18/20 09:00 12/18/20 08:59 Lisinopril (ZestriL) 10 mg ONCE ORAL 11/17/20 15:30 11/17/20 16:30 Pantoprazole (Protonix) 40 mg BID ORAL 11/14/20 18:00 12/14/20 17:59 11/17/20 08:11 Sevelamer Carbonate (Renvela) 1,600 mg THREE TIMES A DAY ORAL 11/16/20 18:00 02/14/21 17:59 11/17/20 12:24 Tramadol HCl (Ultram) 50 mg Q6H PRN ORAL For Pain 11/15/20 20:30 11/22/20 20:29 11/17/20 14:10 Trazodone HCl (Desyrel) 50 mg BEDTIME ORAL 11/14/20 21:00 12/14/20 20:59 11/16/20 21:24 Vitamin D (Vitamin D) 400 unit DAILY ORAL 11/16/20 09:00 12/16/20 08:59 11/17/20 08:11 Zinc Sulfate (Zinc Sulfate) 220 mg DAILY ORAL 11/16/20 09:00 02/14/21 08:59 11/17/20 08:10 Allergies: Coded Allergies: ACETAMINOPHEN (Verified Allergy, Unknown, 11/12/20) MORPHINE (Verified Allergy, Unknown, 11/12/20) ROS Limited/Unobtainable: Yes Subjective 60 YO F with history of end stage renal disease, on HD, admitted with hypotension. Objective Last Vital Signs Date Time Temp Pulse Resp B/P (MAP) Pulse Ox O2 Delivery O2 Flow Rate FiO2 11/17/20 14:40 97.9 11/17/20 14:10 160/90 11/17/20 12:00 78 16 100 11/17/20 09:00 Nasal Cannula 1.0 Laboratory Tests Test 11/16/20 16:20 11/16/20 21:32 11/17/20 05:09 11/17/20 05:32 POC Whole Blood Glucose 341 MG/DL (74-106) H 362 MG/DL (74-106) H 122 MG/DL (74-106) H White Blood Count 9.1 K/UL (4.8-10.8) Red Blood Count 4.80 M/UL (4.20-5.40) Hemoglobin 10.3 G/DL (12.0-16.0) #L Hematocrit 33.7 % (37.0-47.0) #L Mean Corpuscular Volume 70 FL (80-99) L Mean Corpuscular Hemoglobin 21.5 PG (27.0-31.0) L Mean Corpuscular Hemoglobin Concent 30.6 G/DL (32.0-36.0) L Red Cell Distribution Width 19.7 % (11.6-14.8) H Platelet Count 187 K/UL (150-450) Mean Platelet Volume 9.5 FL (6.5-10.1) Neutrophils (%) (Auto) 77.8 % (45.0-75.0) H Lymphocytes (%) (Auto) 13.8 % (20.0-45.0) L Monocytes (%) (Auto) 5.3 % (1.0-10.0) Eosinophils (%) (Auto) 2.5 % (0.0-3.0) Basophils (%) (Auto) 0.6 % (0.0-2.0) Sodium Level 134 MMOL/L (136-145) L Potassium Level 4.1 MMOL/L (3.5-5.1) Chloride Level 102 MMOL/L (98-107) Carbon Dioxide Level 24 MMOL/L (21-32) Anion Gap 8 mmol/L (5-15) Blood Urea Nitrogen 49 mg/dL (7-18) H Creatinine 3.9 MG/DL (0.55-1.30) H Estimat Glomerular Filtration Rate 11.7 mL/min (>60) Glucose Level 128 MG/DL (74-106) #H Calcium Level 7.9 MG/DL (8.5-10.1) L Phosphorus Level 5.1 MG/DL (2.5-4.9) H Magnesium Level 2.1 MG/DL (1.8-2.4) Total Bilirubin 0.7 MG/DL (0.2-1.0) Aspartate Amino Transf (AST/SGOT) 26 U/L (15-37) Alanine Aminotransferase (ALT/SGPT) 35 U/L (12-78) Alkaline Phosphatase 537 U/L (46-116) H C-Reactive Protein, Quantitative 0.5 mg/dL (0.00-0.90) Pro-B-Type Natriuretic Peptide 02123 pg/mL (0-125) H Total Protein 7.0 G/DL (6.4-8.2) Albumin 2.2 G/DL (3.4-5.0) L Globulin 4.8 g/dL Albumin/Globulin Ratio 0.5 (1.0-2.7) L Test 11/17/20 12:02 11/17/20 15:38 POC Whole Blood Glucose 237 MG/DL (74-106) H 335 MG/DL (74-106) H Intake and Output 11/16/20 11/17/20 19:00 07:00 Intake Total 750 ml 420 ml Balance 750 ml 420 ml Intake Oral 750 ml 420 ml # Voids 2 1 # Bowel Movements 2 Objective Objective GENERAL: awake, more responsive chronically ill-appearing, cachectic, malnutrition HEAD AND NECK: Pupils are equal and reactive to light. Anicteric. Neck was supple. No JVD. LUNGS: fair inspiratory effort, with decreased air at the bases, No wheeze or rhonchi. HEART: S1, S2. Distant heart sounds. No murmur or gallop. CHEST WALL: PermCath on the right side of chest wall. No sign of infection. ABDOMEN: Soft, nondistended, and nontender. Positive bowel sounds. EXTREMITIES: No cyanosis, clubbing, or edema. Muscle atrophy bilateral lower extremities NEUROLOGIC: TRUCKER HAND 2 through 12 grossly intact, motor 5/5 on all extremities. RECTAL: Refused and deferred. : Refused and deferred. PSYCHIATRIC: Mood and affect intact. Assessment/Plan Assessment/Plan ASSESSMENT: 1. End-stage renal disease, on hemodialysis. 2. Hyperkalemia. 3. COVID-I9 pneumonia, recovered. 4. Severe protein-calorie malnutrition. 5. Anemia of chronic kidney disease. 6. Hypotension. 7. Hypothyroidism. PLAN: 1. Admit the patient to telemetry 2. Dr. Edi Quintanilla=nephrology consultation 3. Dr. Roland Brink,=Pulmonary Critical Care 4. Dr. Cynthia Weems = Infectious Disease. 5. Code status = Full Code. 6. DVT prophylaxis=heparin subcutaneous. 7. hemodialysis on 11/17/20 8. S/P transfusion 1unit PRBC Oswald Madrid MD Nov 17, 2020 15:58
[2020-11-17 16:00] VITALS: BP 166/79
--- NOTE | 2020-11-17 16:53 | NUR ---
NURSE HAND-OFF REPORT: Important Events on Shift: headache, requesting "IV pain med", HD remove 3L, Patient Status: fc, stable Diet: renal Pending Orders: Pending Results/Labs: Pending MD notification: pain management, dr roblero aware Latest Vital Signs: Temperature 97.1 , Pulse 72 , B/P 166 /79 , Respiratory Rate 18 , O2 SAT 100 , Non-Rebreather, O2 Flow Rate 1.0 . Vital Sign Comment: EKG Rhythm: Sinus Rhythm Rhythm change?: N MD Notified?: - MD Response: Latest Rouse Fall Score: 45 Fall Risk: High Risk Safety Measures: Call light Within Reach, Bed Alarm Zone 1, Side Rails Side Rails x2, Bed position Low and Locked. Fall Precautions: Yellow Socks Yellow Gown Door Sign Patient Fall Education Report to be given. Addendum: 11/17/20 at 1927 by Aide James RN RN Pt stable and report given to MICH Ugarte
--- NOTE | 2020-11-17 17:22 | NUR ---
NURSE NOTES: Pt does not want to be changed at this time. Refusing.
--- NOTE | 2020-11-17 19:26 | NUR ---
NURSE NOTES: Pt changed, BM x1 soft large
--- NOTE | 2020-11-17 20:08 | NUR ---
NURSE NOTES: Received report from MICH Noble. 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 No signs of acute distress noted. SR on monitor, 97% on RA. R toe has crusted over, pt still refuses to have it bandaged. L hand 22g is intact and asymptomatic. R tunneled upper chest cath is asymptomatic, no signs of infiltration. HOB elevated, side rails x2, call light within reach, bed alarmed, locked, and in lowest position. Will continue plan of care.
[2020-11-17] MEDS: TraZODone 50mg tab ORAL SCH (20:25)
[2020-11-17] MEDS: Dyna-Hex 2% Top Sol 2oz TOPIC SCH (20:26)
[2020-11-17 21:00] VITALS: BP 130/83
[2020-11-18] VITALS: BP 143/77
--- NOTE | 2020-11-18 00:15 | NUR ---
NURSE NOTES: Pt is asleep, no distress noted, appears to be calm and comfortable. Vital signs stable at this time. Will continue to monitor. Will continue plan of care.
[2020-11-18] MEDS: traMADol 50mg tab ORAL PRN ×3 (00:26→21:52)
--- NOTE | 2020-11-18 03:51 | NUR ---
NURSE NOTES: Pt had one large brown formed BM. Cleaned pt and offered oral care which was refused. Pt is running a low grade fever of 100.0F. Placed her on cooling measures. Currently saturating at 99% on RA. Will continue to monitor.
[2020-11-18 04:00] VITALS: BP 153/74
[2020-11-18] MEDS: NovoLOG Insulin Flexpen SUBQ SCH ×4 (05:31→22:00)
[2020-11-18] MEDS: HydrALAZINE 50mg tab ORAL SCH ×3 (05:34→21:49)
--- NOTE | 2020-11-18 05:41 | NUR ---
NURSE NOTES: Administered 6am meds. Pt's temperature has decreased to 98.1. No distress noted. Accucheck and insulin given. Will continue to monitor.
--- NOTE | 2020-11-18 07:55 | NUR ---
NURSE NOTES: pt in bed, awake food is at bedside. pt is verbal. Pt has vision problems. Call light within in reach, bed is locked and in lowest position. pt on groundwater monitoring technician, no signs of cardiac or respiratory distress. Will continue to monitor pt.
--- NOTE | 2020-11-18 07:59 | NUR ---
NURSE HAND-OFF REPORT: Important Events on Shift:[Requesting pain meds. No acute events] Patient Status: [Stable] Diet: [renal] Pending Orders: [NA] Pending Results/Labs:[NA] Pending MD notification:[NA] Latest Vital Signs: Temperature 100.0 , Pulse 74 , B/P 153 /74 , Respiratory Rate 18 , O2 SAT 99 , Non-Rebreather, O2 Flow Rate 1.0 . Vital Sign Comment: [Stable] EKG Rhythm: Sinus Rhythm Rhythm change?: N MD Notified?: - MD Response: Latest Rouse Fall Score: 45 Fall Risk: High Risk Safety Measures: Call light Within Reach, Bed Alarm Zone 1, Side Rails Side Rails x2, Bed position Low and Locked. Fall Precautions: Yellow Socks Yellow Gown Door Sign Patient Fall Education Report given to [MICH Bowling].
[2020-11-18 08:00] VITALS: BP 155/81
--- NOTE | 2020-11-18 08:43 | NUR ---
NURSE NOTES: NURSE NOTES:
[2020-11-18] MEDS: Enoxaparin 30mg Inj SUBQ SCH (09:00)
--- NOTE | 2020-11-18 09:02 | Infectious Diseases Prog Note ---
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 Appearance is nonspecific, may reflect bilateral infiltrates versus edema/fluid overload. Flu neg MRSA nares neg BLE US neg for DVT 11/15 ESRD on HD From SNF Plan: Cont dex 6mg daily #5/10 given desats - if remains on RA will stop soon If satting >94% on RA then ok to d/c home from ID standpoint. Can d/c COVID isolation on discharge given she is >10 days out from diagnosis and improved Monitor off abx, doing well from resp standpoint and normal WBC Not candidate for RDV given ESRD Convalescent plasma not available at this institution and pt too far out from dx to benefit Monitor CBC/CMP Monitor resp status Monitor temp curve, hemodynamics D/w RN Thank you for this consult. [facility] will continue to follow. Subjective Allergies: Coded Allergies: ACETAMINOPHEN (Verified Allergy, Unknown, 11/12/20) MORPHINE (Verified Allergy, Unknown, 11/12/20) AF NAD on RA Objective Last 24 Hour Vital Signs Date Time Temp Pulse Resp B/P (MAP) Pulse Ox O2 Delivery O2 Flow Rate FiO2 11/18/20 05:34 153/74 11/18/20 04:00 100.0 74 18 153/74 (100) 99 11/18/20 04:00 74 11/18/20 00:00 98.9 80 18 143/77 (99) 100 11/18/20 00:00 75 11/17/20 21:00 Room Air 11/17/20 21:00 98.6 78 18 130/83 (99) 100 11/17/20 20:26 166/81 11/17/20 20:00 76 11/17/20 17:12 88 169/91 11/17/20 16:03 166/79 11/17/20 16:00 72 11/17/20 16:00 97.1 65 18 166/79 (108) 100 11/17/20 14:40 97.9 11/17/20 14:10 160/90 11/17/20 12:00 97.9 78 16 168/90 (116) 100 11/17/20 12:00 75 11/17/20 10:37 78 167/89 Height (Feet): 5 Height (Inches): 3.00 Weight (Pounds): 90 Gen: NAD HEENT: NCAT Pulm: BL chest rise Abd: Non-distended Ext: No c/c/e Skin: No visible rashes Neuro: Awake Laboratory Tests Test 11/17/20 12:02 11/17/20 15:38 11/17/20 21:20 11/18/20 05:26 POC Whole Blood Glucose 237 MG/DL (74-106) H 335 MG/DL (74-106) H 274 MG/DL (74-106) H 204 MG/DL (74-106) H Current Medications Medications (Trade) Dose Ordered Sig/Nisa Route PRN Reason Start Time Stop Time Status Last Admin Dose Admin Albuterol Sulfate (Proventil MDI) 2 puff Q4H PRN INH Shortness of Breath 11/15/20 10:45 02/13/21 10:44 Amlodipine Besylate (Norvasc) 5 mg BID ORAL 11/14/20 18:00 12/14/20 17:59 11/17/20 17:12 Ascorbic Acid (Vitamin C) 500 mg TWICE A DAY ORAL 11/15/20 18:00 12/15/20 17:59 11/17/20 17:09 Aspirin (ASA) 81 mg DAILY ORAL 11/15/20 09:00 12/30/20 08:59 11/17/20 08:11 Bisacodyl (Dulcolax) 10 mg DAILYPRN PRN RECTAL constipation 11/14/20 16:00 02/12/21 15:59 Chlorhexidine Gluconate (Guera-Hex 2%) 1 applic DAILY@1999 TOPIC 11/15/20 20:00 02/13/21 19:59 11/17/20 20:26 Clonidine HCl (Catapres Tab) 0.1 mg Q4H PRN ORAL bp over 165 syst 11/14/20 16:00 02/12/21 15:59 11/15/20 11:29 Dexamethasone Sodium Phosphate (Decadron 10mg/ ml Inj) 6 mg DAILY IV 11/14/20 21:30 11/23/20 09:01 11/17/20 08:13 Dextrose (Dextrose 50%) 25 ml Q30M PRN IV Hypoglycemia 11/16/20 07:30 02/14/21 07:29 Dextrose (Dextrose 50%) 50 ml Q30M PRN IV Hypoglycemia 11/16/20 07:30 02/14/21 07:29 Docusate Sodium (Colace) 100 mg TID ORAL 11/14/20 18:00 12/14/20 17:59 11/17/20 17:08 Enoxaparin Sodium (Lovenox) 30 mg DAILY SUBQ 11/16/20 09:00 02/14/21 08:59 11/17/20 08:10 Epoetin Cheikh (Epoetin Cheikh(ESRD on dialysis)) 10,000 unit WED-WED-WED SUBQ 11/18/20 21:00 02/16/21 20:59 Gabapentin (Neurontin) 300 mg THREE TIMES A DAY ORAL 11/14/20 18:00 12/14/20 17:59 11/17/20 17:12 Hydralazine HCl (Apresoline) 50 mg Q8HR ORAL 11/15/20 14:00 02/13/21 13:59 11/18/20 05:34 Insulin Aspart (NovoLOG) BEFORE MEALS AND HS SUBQ 11/16/20 11:30 02/14/21 11:29 11/18/20 05:31 Lactulose (Cephulac) 20 gm DAILY ORAL 11/15/20 09:00 12/15/20 08:59 11/17/20 08:09 Levothyroxine Sodium (Synthroid) 88 mcg DAILY@0630 ORAL 11/15/20 06:30 12/15/20 06:29 11/18/20 05:34 Lisinopril (ZestriL) 10 mg DAILY ORAL 11/18/20 09:00 12/18/20 08:59 Pantoprazole (Protonix) 40 mg BID ORAL 11/14/20 18:00 12/14/20 17:59 11/17/20 17:08 Sevelamer Carbonate (Renvela) 1,600 mg THREE TIMES A DAY ORAL 11/16/20 18:00 02/14/21 17:59 11/17/20 17:08 Tramadol HCl (Ultram) 50 mg Q6H PRN ORAL For Pain 11/15/20 20:30 11/22/20 20:29 11/18/20 00:26 Trazodone HCl (Desyrel) 50 mg BEDTIME ORAL 11/14/20 21:00 12/14/20 20:59 11/17/20 20:25 Vitamin D (Vitamin D) 400 unit DAILY ORAL 11/16/20 09:00 12/16/20 08:59 11/17/20 08:11 Zinc Sulfate (Zinc Sulfate) 220 mg DAILY ORAL 11/16/20 09:00 02/14/21 08:59 11/17/20 08:10 Cynthia Weems M.D. Nov 18, 2020 09:02
--- NOTE | 2020-11-18 09:11 | NUR ---
CASE MANAGEMENT:REVIEW 11/18/20 SI: COVID PNA. HYPOTENSION ESRD ON HD 100.0 74 18 153/74 99% ON RA IS: EPOETIN SQ MWF LISINOPRIL PO QD RENVELA PO TID SS INSULIN AC+HS LOVENOX SQ QD VIT D PO QD ZINC PO QD VIT C PO BID HYDRALAZINE PO Q8HRS LACTULOSE PO QD ASA PO QD NORVASC PO BID IV DECADRON QD : TELEMETRY STATUS DCP: FROM [facility] PLAN: MONITOR TEMP
[2020-11-18] MEDS: Ascorbic Acid 500mg tab ORAL SCH ×2 (10:05→17:28)
[2020-11-18] MEDS: Zinc Sulfate 220mg ORAL SCH (10:05)
[2020-11-18] MEDS: Lisinopril 10mg tab ORAL SCH (10:06)
[2020-11-18] MEDS: Lactulose 20gm/30ml UDC ORAL SCH (10:07)
[2020-11-18] MEDS: Vitamin D 400 units TAB ORAL SCH (10:07)
[2020-11-18] MEDS: Docusate 100mg cap ORAL SCH ×3 (10:07→17:34)
[2020-11-18] MEDS: Aspirin Baby 81mg ORAL SCH (10:07)
[2020-11-18] MEDS: dexAMETHasone 10mg/ml Inj IV SCH (10:08)
[2020-11-18 10:38] LABS: BASOPHILS % (AUTO) 1.7 % (0.0-2.0); EOSINOPHILS % (AUTO) 3.5 % (0.0-3.0); HEMATOCRIT 32.9 % (37.0-47.0); HEMOGLOBIN 9.7 G/DL (12.0-16.0); LYMPHOCYTES % (AUTO) 17.5 % (20.0-45.0); MEAN CORPUSCULAR VOLUME 73 FL (80-99); NEUTROPHILS % (AUTO) 67.3 % (45.0-75.0); PLATELET COUNT 155 K/UL (150-450); RED BLOOD COUNT 4.52 M/UL (4.20-5.40); RED CELL DISTRIBUTION WIDTH 20.4 % (11.6-14.8); WHITE BLOOD COUNT 10.4 K/UL (4.8-10.8)
[2020-11-18 11:01] LABS: ALANINE AMINOTRANSFERASE 37 U/L (12-78); ALBUMIN 2.1 G/DL (3.4-5.0); ALBUMIN/GLOBULIN RATIO 0.5 (1.0-2.7); ALKALINE PHOSPHATASE 454 U/L (46-116); ANION GAP 9 mmol/L (5-15); ASPARTATE AMINO TRANSFERASE 27 U/L (15-37); BILIRUBIN,TOTAL 0.4 MG/DL (0.2-1.0); BLOOD UREA NITROGEN 41 mg/dL (7-18); CALCIUM 7.4 MG/DL (8.5-10.1); CARBON DIOXIDE 24 MMOL/L (21-32); CHLORIDE 103 MMOL/L (98-107); CREATININE 3.5 MG/DL (0.55-1.30); PHOSPHORUS 4.4 MG/DL (2.5-4.9); POTASSIUM 4.6 MMOL/L (3.5-5.1); SODIUM 136 MMOL/L (136-145)
[2020-11-18 12:00] VITALS: BP 173/94
--- NOTE | 2020-11-18 12:03 | Surgery Progress Note ---
Surgery Progress Note Subjective Additional Comments no acute events labs stable comfortable Objective Last 24 Hour Vital Signs Date Time Temp Pulse Resp B/P (MAP) Pulse Ox O2 Delivery O2 Flow Rate FiO2 11/18/20 10:07 81 155/81 11/18/20 10:06 155/81 11/18/20 05:34 153/74 11/18/20 04:00 100.0 74 18 153/74 (100) 99 11/18/20 04:00 74 11/18/20 00:00 98.9 80 18 143/77 (99) 100 11/18/20 00:00 75 11/17/20 21:00 Room Air 11/17/20 21:00 98.6 78 18 130/83 (99) 100 11/17/20 20:26 166/81 11/17/20 20:00 76 11/17/20 17:12 88 169/91 11/17/20 16:03 166/79 11/17/20 16:00 72 11/17/20 16:00 97.1 65 18 166/79 (108) 100 11/17/20 14:40 97.9 11/17/20 14:10 160/90 I&O Intake and Output 11/17/20 11/18/20 19:00 07:00 Intake Total 900 ml Output Total 3000 ml 200 ml Balance -2100 ml -200 ml Intake Oral 900 ml Output Urine Total 200 ml Hemodialysis UF 3000 ml # Voids 2 1 # Bowel Movements 1 Dressing: saturated Cardiovascular: RSR Respiratory: decreased breath sounds Abdomen: soft, non-tender, present bowel sounds Extremities: no tenderness, no cyanosis Laboratory Tests Test 11/17/20 15:38 11/17/20 21:20 11/18/20 05:26 11/18/20 09:50 POC Whole Blood Glucose 335 MG/DL (74-106) H 274 MG/DL (74-106) H 204 MG/DL (74-106) H White Blood Count 10.4 K/UL (4.8-10.8) Red Blood Count 4.52 M/UL (4.20-5.40) Hemoglobin 9.7 G/DL (12.0-16.0) L Hematocrit 32.9 % (37.0-47.0) L Mean Corpuscular Volume 73 FL (80-99) L Mean Corpuscular Hemoglobin 21.5 PG (27.0-31.0) L Mean Corpuscular Hemoglobin Concent 29.6 G/DL (32.0-36.0) L Red Cell Distribution Width 20.4 % (11.6-14.8) H Platelet Count 155 K/UL (150-450) Mean Platelet Volume 8.5 FL (6.5-10.1) Neutrophils (%) (Auto) 67.3 % (45.0-75.0) Lymphocytes (%) (Auto) 17.5 % (20.0-45.0) L Monocytes (%) (Auto) 10.0 % (1.0-10.0) Eosinophils (%) (Auto) 3.5 % (0.0-3.0) H Basophils (%) (Auto) 1.7 % (0.0-2.0) Sodium Level 136 MMOL/L (136-145) Potassium Level 4.6 MMOL/L (3.5-5.1) Chloride Level 103 MMOL/L (98-107) Carbon Dioxide Level 24 MMOL/L (21-32) Anion Gap 9 mmol/L (5-15) Blood Urea Nitrogen 41 mg/dL (7-18) H Creatinine 3.5 MG/DL (0.55-1.30) H Estimat Glomerular Filtration Rate 13.3 mL/min (>60) Glucose Level 229 MG/DL (74-106) #H Calcium Level 7.4 MG/DL (8.5-10.1) L Phosphorus Level 4.4 MG/DL (2.5-4.9) Magnesium Level 2.2 MG/DL (1.8-2.4) Total Bilirubin 0.4 MG/DL (0.2-1.0) Aspartate Amino Transf (AST/SGOT) 27 U/L (15-37) Alanine Aminotransferase (ALT/SGPT) 37 U/L (12-78) Alkaline Phosphatase 454 U/L (46-116) H C-Reactive Protein, Quantitative < 0.4 mg/dL (0.00-0.90) Pro-B-Type Natriuretic Peptide 68739 pg/mL (0-125) H Total Protein 6.2 G/DL (6.4-8.2) L Albumin 2.1 G/DL (3.4-5.0) L Globulin 4.1 g/dL Albumin/Globulin Ratio 0.5 (1.0-2.7) L Plan Problems: (1) SOB (shortness of breath) (2) ESRD on dialysis Assessment & Plan: as per renal on HD planned today (3) COVID-19 Assessment & Plan: ++ per pulm and ID respiratory stable for now cxr noted Acute interstitial disease, developing since 11/12/2020. Appearance is nonspecific, may reflect bilateral infiltrates versus edema/fluid overload. (4) Hypertensive kidney disease (5) Anemia in chronic kidney disease (6) Dyspnea (7) Renal failure (8) Abnormal LFTs Assessment & Plan: Patient identified to have significant abnormal labs. G GT alk phos and LDH elevated. AST ALT normal lipase normal. Significance unknown at this time. I have been seeing it with Covid positivity at this time. Liver seems to be functional otherwise within normal limits. Hold on further imaging for this time. Continue with IV hydration dialysis. Trend labs. Will monitor with examination. Baseline abdominal examination thus far is fairly benign Renny Thornton Nov 18, 2020 12:03
--- NOTE | 2020-11-18 12:05 | Nephrology Progress Note ---
Assessment/Plan Problem List: (1) ESRD on dialysis (2) Hypertensive kidney disease (3) COVID-19 (4) SOB (shortness of breath) (5) Anemia in chronic kidney disease Assessment COVID-19, pneumonia Shortness of breath, hypoxia End-stage renal disease, right jugular dialysis catheter Low MCV anemia Plan November 18: Dialyzed yesterday. Labs reviewed. Blood pressure stable. Hemodialysis tomorrow. Continue same management. November 17: Patient seen during dialysis. Tolerating well. Hemoglobin higher. Blood pressure medication adjusted. Continue current management. November 16: Last dialysis November 14. Will order dialysis tomorrow. Patient hemoglobin lower. 1 unit of packed RBC transfusion ordered. Blood pressure better controlled. Phos binders adjusted. Continue per consultants. November 15: Patient dialyzed last night. Labs reviewed. Patient complaining of chest tightness. Medication list reviewed. Blood pressure remains elevated at times. Will adjust blood pressure medication. Next hemodialysis again tomorrow. Previously: Hemodialysis and ultrafiltration 2D echocardiogram Keep the blood pressure blood sugar in check Anemia work-up COVID-19 pneumonia treatment per pulmonary Keep the blood pressure and blood sugar in check Subjective ROS Limited/Unobtainable: No Objective Objective Last 24 Hour Vital Signs Date Time Temp Pulse Resp B/P (MAP) Pulse Ox O2 Delivery O2 Flow Rate FiO2 11/18/20 10:07 81 155/81 11/18/20 10:06 155/81 11/18/20 05:34 153/74 11/18/20 04:00 100.0 74 18 153/74 (100) 99 11/18/20 04:00 74 11/18/20 00:00 98.9 80 18 143/77 (99) 100 11/18/20 00:00 75 11/17/20 21:00 Room Air 11/17/20 21:00 98.6 78 18 130/83 (99) 100 11/17/20 20:26 166/81 11/17/20 20:00 76 11/17/20 17:12 88 169/91 11/17/20 16:03 166/79 11/17/20 16:00 72 11/17/20 16:00 97.1 65 18 166/79 (108) 100 11/17/20 14:40 97.9 11/17/20 14:10 160/90 Intake and Output 11/17/20 11/18/20 19:00 07:00 Intake Total 900 ml Output Total 3000 ml 200 ml Balance -2100 ml -200 ml Intake Oral 900 ml Output Urine Total 200 ml Hemodialysis UF 3000 ml # Voids 2 1 # Bowel Movements 1 Current Medications Medications (Trade) Dose Ordered Sig/Nisa Route PRN Reason Start Time Stop Time Status Last Admin Dose Admin Albuterol Sulfate (Proventil MDI) 2 puff Q4H PRN INH Shortness of Breath 11/15/20 10:45 02/13/21 10:44 Amlodipine Besylate (Norvasc) 5 mg BID ORAL 11/14/20 18:00 12/14/20 17:59 11/18/20 10:07 Ascorbic Acid (Vitamin C) 500 mg TWICE A DAY ORAL 11/15/20 18:00 12/15/20 17:59 11/18/20 10:05 Aspirin (ASA) 81 mg DAILY ORAL 11/15/20 09:00 12/30/20 08:59 11/18/20 10:07 Bisacodyl (Dulcolax) 10 mg DAILYPRN PRN RECTAL constipation 11/14/20 16:00 02/12/21 15:59 Chlorhexidine Gluconate (Guera-Hex 2%) 1 applic DAILY@2000 TOPIC 11/15/20 20:00 02/13/21 19:59 11/17/20 20:26 Clonidine HCl (Catapres Tab) 0.1 mg Q4H PRN ORAL bp over 165 syst 11/14/20 16:00 02/12/21 15:59 11/15/20 11:29 Dexamethasone Sodium Phosphate (Decadron 10mg/ ml Inj) 6 mg DAILY IV 11/14/20 21:30 11/23/20 09:01 11/18/20 10:08 Dextrose (Dextrose 50%) 25 ml Q30M PRN IV Hypoglycemia 11/16/20 07:30 02/14/21 07:29 Dextrose (Dextrose 50%) 50 ml Q30M PRN IV Hypoglycemia 11/16/20 07:30 02/14/21 07:29 Docusate Sodium (Colace) 100 mg TID ORAL 11/14/20 18:00 12/14/20 17:59 11/18/20 10:07 Enoxaparin Sodium (Lovenox) 30 mg DAILY SUBQ 11/16/20 09:00 02/14/21 08:59 11/18/20 09:00 Epoetin Cheikh (Epoetin Cheikh(ESRD on dialysis)) 10,000 unit WED- SUBQ 11/18/20 21:00 02/16/21 20:59 Gabapentin (Neurontin) 300 mg THREE TIMES A DAY ORAL 11/14/20 18:00 12/14/20 17:59 11/18/20 10:08 Hydralazine HCl (Apresoline) 50 mg Q8HR ORAL 11/15/20 14:00 02/13/21 13:59 11/18/20 05:34 Insulin Aspart (NovoLOG) BEFORE MEALS AND HS SUBQ 11/16/20 11:30 02/14/21 11:29 11/18/20 05:31 Lactulose (Cephulac) 20 gm DAILY ORAL 11/15/20 09:00 12/15/20 08:59 11/18/20 10:07 Levothyroxine Sodium (Synthroid) 88 mcg DAILY@0630 ORAL 11/15/20 06:30 12/15/20 06:29 11/18/20 05:34 Lisinopril (ZestriL) 10 mg DAILY ORAL 11/18/20 09:00 12/18/20 08:59 11/18/20 10:06 Pantoprazole (Protonix) 40 mg BID ORAL 11/14/20 18:00 12/14/20 17:59 11/18/20 10:05 Sevelamer Carbonate (Renvela) 1,600 mg THREE TIMES A DAY ORAL 11/16/20 18:00 02/14/21 17:59 11/18/20 10:06 Tramadol HCl (Ultram) 50 mg Q6H PRN ORAL For Pain 11/15/20 20:30 11/22/20 20:29 11/18/20 10:44 Trazodone HCl (Desyrel) 50 mg BEDTIME ORAL 11/14/20 21:00 12/14/20 20:59 11/17/20 20:25 Vitamin D (Vitamin D) 400 unit DAILY ORAL 11/16/20 09:00 12/16/20 08:59 11/18/20 10:07 Zinc Sulfate (Zinc Sulfate) 220 mg DAILY ORAL 11/16/20 09:00 02/14/21 08:59 11/18/20 10:05 Laboratory Tests 11/17/20 15:38: POC Whole Blood Glucose 335H 11/17/20 21:20: POC Whole Blood Glucose 274H 11/18/20 05:26: POC Whole Blood Glucose 204H 11/18/20 09:50: White Blood Count 10.4, Red Blood Count 4.52, Hemoglobin 9.7L, Hematocrit 32.9L, Mean Corpuscular Volume 73L, Mean Corpuscular Hemoglobin 21.5L, Mean Corpuscular Hemoglobin Concent 29.6L, Red Cell Distribution Width 20.4H, Platelet Count 155, Mean Platelet Volume 8.5, Neutrophils (%) (Auto) 67.3, Lymphocytes (%) (Auto) 17.5L, Monocytes (%) (Auto) 10.0, Eosinophils (%) (Auto) 3.5H, Basophils (%) (Auto) 1.7, Sodium Level 136, Potassium Level 4.6, Chloride Level 103, Carbon Dioxide Level 24, Anion Gap 9, Blood Urea Nitrogen 41H, Creatinine 3.5H, Estimat Glomerular Filtration Rate 13.3, Glucose Level 229#H, Calcium Level 7.4L, Phosphorus Level 4.4, Magnesium Level 2.2, Total Bilirubin 0.4, Aspartate Amino Transf (AST/SGOT) 27, Alanine Aminotransferase (ALT/SGPT) 37, Alkaline Phosphatase 454H, C-Reactive Protein, Quantitative < 0.4, Pro-B-Type Natriuretic Peptide [id number], Total Protein 6.2L, Albumin 2.1L, Globulin 4.1, Albumin/Globulin Ratio 0.5L Height (Feet): 5 Height (Inches): 3.00 Weight (Pounds): 90 Cardiovascular: normal rate Respiratory/Chest: decreased breath sounds Abdomen: distended Edi Quintanilla MD Nov 18, 2020 12:05
--- NOTE | 2020-11-18 13:16 | Internal Med Progress Note ---
Subjective Date of Service: Nov 18, 2020 Physician Name MadridOswald Attending Physician Randy Carpenter MD Current Medications Medications (Trade) Dose Ordered Sig/Nisa Route PRN Reason Start Time Stop Time Status Last Admin Dose Admin Albuterol Sulfate (Proventil MDI) 2 puff Q4H PRN INH Shortness of Breath 11/15/20 10:45 02/13/21 10:44 Amlodipine Besylate (Norvasc) 5 mg BID ORAL 11/14/20 18:00 12/14/20 17:59 11/18/20 10:07 Ascorbic Acid (Vitamin C) 500 mg TWICE A DAY ORAL 11/15/20 18:00 12/15/20 17:59 11/18/20 10:05 Aspirin (ASA) 81 mg DAILY ORAL 11/15/20 09:00 12/30/20 08:59 11/18/20 10:07 Bisacodyl (Dulcolax) 10 mg DAILYPRN PRN RECTAL constipation 11/14/20 16:00 02/12/21 15:59 Chlorhexidine Gluconate (Guera-Hex 2%) 1 applic DAILY@2000 TOPIC 11/15/20 20:00 02/13/21 19:59 11/17/20 20:26 Clonidine HCl (Catapres Tab) 0.1 mg Q4H PRN ORAL bp over 165 syst 11/14/20 16:00 02/12/21 15:59 11/18/20 12:38 Dexamethasone Sodium Phosphate (Decadron 10mg/ ml Inj) 6 mg DAILY IV 11/14/20 21:30 11/23/20 09:01 11/18/20 10:08 Dextrose (Dextrose 50%) 25 ml Q30M PRN IV Hypoglycemia 11/16/20 07:30 02/14/21 07:29 Dextrose (Dextrose 50%) 50 ml Q30M PRN IV Hypoglycemia 11/16/20 07:30 02/14/21 07:29 Docusate Sodium (Colace) 100 mg TID ORAL 11/14/20 18:00 12/14/20 17:59 11/18/20 10:07 Enoxaparin Sodium (Lovenox) 30 mg DAILY SUBQ 11/16/20 09:00 02/14/21 08:59 11/18/20 09:00 Epoetin Cheikh (Epoetin Cheikh(ESRD on dialysis)) 10,000 unit WED-WED-WED SUBQ 11/18/20 21:00 02/16/21 20:59 Gabapentin (Neurontin) 300 mg THREE TIMES A DAY ORAL 11/14/20 18:00 12/14/20 17:59 11/18/20 10:08 Hydralazine HCl (Apresoline) 50 mg Q8HR ORAL 11/15/20 14:00 02/13/21 13:59 11/18/20 05:34 Insulin Aspart (NovoLOG) BEFORE MEALS AND HS SUBQ 11/16/20 11:30 02/14/21 11:29 11/18/20 05:31 Lactulose (Cephulac) 20 gm DAILY ORAL 11/15/20 09:00 12/15/20 08:59 11/18/20 10:07 Levothyroxine Sodium (Synthroid) 88 mcg DAILY@0630 ORAL 11/15/20 06:30 12/15/20 06:29 11/18/20 05:34 Lisinopril (ZestriL) 10 mg DAILY ORAL 11/18/20 09:00 12/18/20 08:59 11/18/20 10:06 Pantoprazole (Protonix) 40 mg BID ORAL 11/14/20 18:00 12/14/20 17:59 11/18/20 10:05 Sevelamer Carbonate (Renvela) 1,600 mg THREE TIMES A DAY ORAL 11/16/20 18:00 02/14/21 17:59 11/18/20 10:06 Tramadol HCl (Ultram) 50 mg Q6H PRN ORAL For Pain 11/15/20 20:30 11/22/20 20:29 11/18/20 10:44 Trazodone HCl (Desyrel) 50 mg BEDTIME ORAL 11/14/20 21:00 12/14/20 20:59 11/17/20 20:25 Vitamin D (Vitamin D) 400 unit DAILY ORAL 11/16/20 09:00 12/16/20 08:59 11/18/20 10:07 Zinc Sulfate (Zinc Sulfate) 220 mg DAILY ORAL 11/16/20 09:00 02/14/21 08:59 11/18/20 10:05 Allergies: Coded Allergies: ACETAMINOPHEN (Verified Allergy, Unknown, 11/12/20) MORPHINE (Verified Allergy, Unknown, 11/12/20) ROS Limited/Unobtainable: No Constitutional: Reports: no symptoms HEENT: Reports: no symptoms Cardiovascular: Reports: no symptoms Respiratory: Reports: cough, shortness of breath Gastrointestinal/Abdominal: Reports: no symptoms Genitourinary: Reports: no symptoms Neurologic/Psychiatric: Reports: no symptoms Subjective 60 YO F with history of end stage renal disease, on HD, admitted with hypotension. Cover for Int gisselle-DR Carpenter Objective Last Vital Signs Date Time Temp Pulse Resp B/P (MAP) Pulse Ox O2 Delivery O2 Flow Rate FiO2 11/18/20 12:38 173/94 11/18/20 10:07 81 11/18/20 04:00 100.0 18 99 11/17/20 21:00 Room Air 11/17/20 09:00 1.0 Laboratory Tests Test 11/17/20 15:38 11/17/20 21:20 11/18/20 05:26 11/18/20 09:50 POC Whole Blood Glucose 335 MG/DL (74-106) H 274 MG/DL (74-106) H 204 MG/DL (74-106) H White Blood Count 10.4 K/UL (4.8-10.8) Red Blood Count 4.52 M/UL (4.20-5.40) Hemoglobin 9.7 G/DL (12.0-16.0) L Hematocrit 32.9 % (37.0-47.0) L Mean Corpuscular Volume 73 FL (80-99) L Mean Corpuscular Hemoglobin 21.5 PG (27.0-31.0) L Mean Corpuscular Hemoglobin Concent 29.6 G/DL (32.0-36.0) L Red Cell Distribution Width 20.4 % (11.6-14.8) H Platelet Count 155 K/UL (150-450) Mean Platelet Volume 8.5 FL (6.5-10.1) Neutrophils (%) (Auto) 67.3 % (45.0-75.0) Lymphocytes (%) (Auto) 17.5 % (20.0-45.0) L Monocytes (%) (Auto) 10.0 % (1.0-10.0) Eosinophils (%) (Auto) 3.5 % (0.0-3.0) H Basophils (%) (Auto) 1.7 % (0.0-2.0) Sodium Level 136 MMOL/L (136-145) Potassium Level 4.6 MMOL/L (3.5-5.1) Chloride Level 103 MMOL/L (98-107) Carbon Dioxide Level 24 MMOL/L (21-32) Anion Gap 9 mmol/L (5-15) Blood Urea Nitrogen 41 mg/dL (7-18) H Creatinine 3.5 MG/DL (0.55-1.30) H Estimat Glomerular Filtration Rate 13.3 mL/min (>60) Glucose Level 229 MG/DL (74-106) #H Calcium Level 7.4 MG/DL (8.5-10.1) L Phosphorus Level 4.4 MG/DL (2.5-4.9) Magnesium Level 2.2 MG/DL (1.8-2.4) Total Bilirubin 0.4 MG/DL (0.2-1.0) Aspartate Amino Transf (AST/SGOT) 27 U/L (15-37) Alanine Aminotransferase (ALT/SGPT) 37 U/L (12-78) Alkaline Phosphatase 454 U/L (46-116) H C-Reactive Protein, Quantitative < 0.4 mg/dL (0.00-0.90) Pro-B-Type Natriuretic Peptide 54556 pg/mL (0-125) H Total Protein 6.2 G/DL (6.4-8.2) L Albumin 2.1 G/DL (3.4-5.0) L Globulin 4.1 g/dL Albumin/Globulin Ratio 0.5 (1.0-2.7) L Test 11/18/20 12:42 POC Whole Blood Glucose 286 MG/DL (74-106) H Intake and Output 11/17/20 11/18/20 19:00 07:00 Intake Total 900 ml Output Total 3000 ml 200 ml Balance -2100 ml -200 ml Intake Oral 900 ml Output Urine Total 200 ml Hemodialysis UF 3000 ml # Voids 2 1 # Bowel Movements 1 Objective Objective GENERAL: awake, more responsive chronically ill-appearing, cachectic, malnutrition HEAD AND NECK: Pupils are equal and reactive to light. Anicteric. Neck was supple. No JVD. LUNGS: fair inspiratory effort, with decreased air at the bases, No wheeze or rhonchi. HEART: S1, S2. Distant heart sounds. No murmur or gallop. CHEST WALL: PermCath on the right side of chest wall. No sign of infection. ABDOMEN: Soft, nondistended, and nontender. Positive bowel sounds. EXTREMITIES: No cyanosis, clubbing, or edema. Muscle atrophy bilateral lower extremities NEUROLOGIC: BIOMETRICS SPECIALIST 2 through 12 grossly intact, motor 5/5 on all extremities. RECTAL: Refused and deferred. : Refused and deferred. PSYCHIATRIC: Mood and affect intact. Assessment/Plan Assessment/Plan ASSESSMENT: 1. End-stage renal disease, on hemodialysis. 2. Hyperkalemia. 3. COVID-I9 pneumonia, recovered. 4. Severe protein-calorie malnutrition. 5. Anemia of chronic kidney disease. 6. Hypotension. 7. Hypothyroidism. PLAN: 1. Admit the patient to telemetry 2. Dr. Edi Quintanilla=nephrology consultation 3. Dr. Roland Brink,=Pulmonary Critical Care 4. Dr. Cynthia Weems = Infectious Disease. 5. Code status = Full Code. 6. DVT prophylaxis=heparin subcutaneous. 7. Next hemodialysis on 11/19/20 8. S/P transfusion 1unit PRBC Oswald Madrid MD Nov 18, 2020 13:13
[2020-11-18 16:00] VITALS: BP 170/82
--- NOTE | 2020-11-18 19:45 | NUR ---
NURSE NOTES: Received pt and report from MICH Bowling. Observed pt resting in bed with both eyes open. Pt is A/Ox3. vehicle monitor technician is in placed; pt is NSR. IV site intact, asymptomatic and patent. Pt is on 1LPM O2 via NC; sating at 99%. No acute respiratory distress noted. Bed is in the lowest position and locked. Call light and bedside table is within reach. No signs/symptoms of acute distress noted. Will continue plan of care.
[2020-11-18 20:00] VITALS: BP 164/76
--- NOTE | 2020-11-18 20:20 | NUR ---
NURSE HAND-OFF REPORT: Important Events on Shift:[]pt eats very well. complaint of pain earlier now is ok Patient Status: [] full code Diet: []renal Pending Orders: [] Pending Results/Labs:[] Pending MD notification:[] Latest Vital Signs: Temperature 97.7 , Pulse 87 , B/P 170 /82 , Respiratory Rate 20 , O2 SAT 98 , Non-Rebreather, O2 Flow Rate 1.0 . Vital Sign Comment: [] EKG Rhythm: Sinus Rhythm Rhythm change?: N MD Notified?: - MD Response: Latest Rouse Fall Score: 45 Fall Risk: High Risk Safety Measures: Call light Within Reach, Bed Alarm Zone 1, Side Rails Side Rails x2, Bed position Low and Locked. Fall Precautions: y Yellow Socks y Yellow Gown y Door Sign y Patient Fall Education y Report given to [].Marleni/RN
--- NOTE | 2020-11-18 20:27 | NUR ---
NURSE NOTES: scheduled HD for tomorrow with [facility], spoke to Cath.
[2020-11-18] MEDS: Dyna-Hex 2% Top Sol 2oz TOPIC SCH (20:53)
[2020-11-18] MEDS ORDERED: Epoetin Alfa-EPBX(ESRD on dialysis)10,000 unit/ml vial SUBQ SCH (21:00)
[2020-11-19] VITALS (7 sets, daily range): BP systolic 130–170; BP diastolic 63–80
--- NOTE | 2020-11-19 02:24 | NUR ---
NURSE NOTES: Observed pt asleep in bed. No signs/symptoms of acute distress noted. Will continue plan of care.
[2020-11-19] MEDS: HydrALAZINE 50mg tab ORAL SCH ×3 (05:59→21:49)
[2020-11-19] MEDS: traMADol 50mg tab ORAL PRN ×2 (05:59→21:50)
[2020-11-19] MEDS: NovoLOG Insulin Flexpen SUBQ SCH ×4 (06:08→21:49)
--- NOTE | 2020-11-19 07:23 | NUR ---
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 Pt continues to be on room air/1LPM O2 via NC; sating at 99-100%. No complaints of CP or acute respiratory distress. Patient Status: stable Diet: Renal Pending Orders: HD Pending Results/Labs: AM Labs Pending MD notification: N Latest Vital Signs: Temperature 99.6 , Pulse 82 , B/P 167 /79 , Respiratory Rate 20 , O2 SAT 100 , Non-Rebreather, O2 Flow Rate 1.0 . EKG Rhythm: Sinus Rhythm Rhythm change?: N Latest Rouse Fall Score: 45 Fall Risk: High Risk Safety Measures: Call light Within Reach, Bed Alarm Zone 1, Side Rails Side Rails x2, Bed position Low and Locked. Fall Precautions: Yellow Socks Yellow Gown Door Sign Patient Fall Education Report given to [facility] Bowling.
--- NOTE | 2020-11-19 07:44 | NUR ---
NURSE NOTES: pt AOx3, pt is verbal. 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 Bed in lowest position and locked call light within reach. Will continue to monitor.
--- NOTE | 2020-11-19 07:55 | NUR ---
NURSE NOTES: pt will be dialyzed later today in the afternoon. per dialysis nurse hold bp meds.
--- NOTE | 2020-11-19 08:04 | Surgery Progress Note ---
Surgery Progress Note Subjective Additional Comments low grade fever no n/v labs noted an d okay exam stable Objective Last 24 Hour Vital Signs Date Time Temp Pulse Resp B/P (MAP) Pulse Ox O2 Delivery O2 Flow Rate FiO2 11/19/20 05:59 167/79 11/19/20 04:00 99.6 82 20 165/80 (108) 100 11/19/20 04:00 84 11/19/20 01:26 177/87 11/19/20 01:00 80 162/74 (103) 11/19/20 00:00 99.3 81 19 170/76 (107) 100 11/19/20 00:00 80 11/18/20 21:49 175/86 11/18/20 21:00 Room Air 11/18/20 20:00 81 11/18/20 20:00 99.9 82 19 164/76 (105) 100 11/18/20 17:29 87 170/82 11/18/20 16:00 97.7 87 20 170/82 (111) 98 11/18/20 16:00 87 11/18/20 16:00 74 11/18/20 14:18 188/94 11/18/20 12:38 173/94 11/18/20 12:00 83 11/18/20 12:00 97.5 81 20 173/94 (120) 100 11/18/20 12:00 74 11/18/20 10:07 81 155/81 11/18/20 10:06 155/81 11/18/20 09:00 Room Air I&O Intake and Output 11/18/20 11/19/20 19:00 07:00 Intake Total 380 ml Balance 380 ml Intake Oral 380 ml # Voids 3 Dressing: other Wound: other Cardiovascular: RSR Respiratory: decreased breath sounds Abdomen: soft, non-tender, present bowel sounds, non-distended Extremities: no tenderness, no cyanosis Laboratory Tests Test 11/18/20 09:50 11/18/20 12:42 11/18/20 17:30 11/18/20 21:57 White Blood Count 10.4 K/UL (4.8-10.8) Red Blood Count 4.52 M/UL (4.20-5.40) Hemoglobin 9.7 G/DL (12.0-16.0) L Hematocrit 32.9 % (37.0-47.0) L Mean Corpuscular Volume 73 FL (80-99) L Mean Corpuscular Hemoglobin 21.5 PG (27.0-31.0) L Mean Corpuscular Hemoglobin Concent 29.6 G/DL (32.0-36.0) L Red Cell Distribution Width 20.4 % (11.6-14.8) H Platelet Count 155 K/UL (150-450) Mean Platelet Volume 8.5 FL (6.5-10.1) Neutrophils (%) (Auto) 67.3 % (45.0-75.0) Lymphocytes (%) (Auto) 17.5 % (20.0-45.0) L Monocytes (%) (Auto) 10.0 % (1.0-10.0) Eosinophils (%) (Auto) 3.5 % (0.0-3.0) H Basophils (%) (Auto) 1.7 % (0.0-2.0) Sodium Level 136 MMOL/L (136-145) Potassium Level 4.6 MMOL/L (3.5-5.1) Chloride Level 103 MMOL/L (98-107) Carbon Dioxide Level 24 MMOL/L (21-32) Anion Gap 9 mmol/L (5-15) Blood Urea Nitrogen 41 mg/dL (7-18) H Creatinine 3.5 MG/DL (0.55-1.30) H Estimat Glomerular Filtration Rate 13.3 mL/min (>60) Glucose Level 229 MG/DL (74-106) #H Calcium Level 7.4 MG/DL (8.5-10.1) L Phosphorus Level 4.4 MG/DL (2.5-4.9) Magnesium Level 2.2 MG/DL (1.8-2.4) Total Bilirubin 0.4 MG/DL (0.2-1.0) Aspartate Amino Transf (AST/SGOT) 27 U/L (15-37) Alanine Aminotransferase (ALT/SGPT) 37 U/L (12-78) Alkaline Phosphatase 454 U/L (46-116) H C-Reactive Protein, Quantitative < 0.4 mg/dL (0.00-0.90) Pro-B-Type Natriuretic Peptide 34809 pg/mL (0-125) H Total Protein 6.2 G/DL (6.4-8.2) L Albumin 2.1 G/DL (3.4-5.0) L Globulin 4.1 g/dL Albumin/Globulin Ratio 0.5 (1.0-2.7) L POC Whole Blood Glucose 286 MG/DL (74-106) H Pending 213 MG/DL (74-106) H Test 11/19/20 06:02 POC Whole Blood Glucose 169 MG/DL (74-106) H Plan Problems: (1) SOB (shortness of breath) (2) ESRD on dialysis Assessment & Plan: as per renal on HD planned today (3) COVID-19 Assessment & Plan: ++ per pulm and ID respiratory stable for now cxr noted Acute interstitial disease, developing since 11/12/2020. Appearance is nonspecific, may reflect bilateral infiltrates versus edema/fluid overload. (4) Hypertensive kidney disease (5) Anemia in chronic kidney disease (6) Dyspnea (7) Renal failure (8) Abnormal LFTs Assessment & Plan: Patient identified to have significant abnormal labs. G GT alk phos and LDH elevated. AST ALT normal lipase normal. Significance unknown at this time. I have been seeing it with Covid positivity at this time. Liver seems to be functional otherwise within normal limits. Hold on further imaging for this time. Continue with IV hydration dialysis. Trend labs. Will monitor with examination. Baseline abdominal examination thus far is fairly benign lft's resolved diet okay no n/v d/c planning Renny Thornton Nov 19, 2020 08:04
[2020-11-19 08:14] LABS: BASOPHILS % (AUTO) 1.2 % (0.0-2.0); EOSINOPHILS % (AUTO) 3.2 % (0.0-3.0); LYMPHOCYTES % (AUTO) 20.2 % (20.0-45.0); MEAN CORPUSCULAR VOLUME 73 FL (80-99); MONOCYTES % (AUTO) 8.3 % (1.0-10.0); NEUTROPHILS % (AUTO) 67.1 % (45.0-75.0); PLATELET COUNT 175 K/UL (150-450); RED BLOOD COUNT 4.54 M/UL (4.20-5.40); RED CELL DISTRIBUTION WIDTH 20.5 % (11.6-14.8); WHITE BLOOD COUNT 10.8 K/UL (4.8-10.8)
[2020-11-19 08:48] LABS: CALCIUM 7.9 MG/DL (8.5-10.1); CREATININE 4.1 MG/DL (0.55-1.30)
[2020-11-19] MEDS: Docusate 100mg cap ORAL SCH ×3 (08:54→18:00)
[2020-11-19] MEDS: Vitamin D 400 units TAB ORAL SCH (08:54)
[2020-11-19] MEDS: Aspirin Baby 81mg ORAL SCH (08:54)
[2020-11-19] MEDS: Zinc Sulfate 220mg ORAL SCH (08:54)
[2020-11-19] MEDS: Ascorbic Acid 500mg tab ORAL SCH ×2 (08:55→18:00)
[2020-11-19] MEDS: Lactulose 20gm/30ml UDC ORAL SCH (08:55)
[2020-11-19] MEDS: Enoxaparin 30mg Inj SUBQ SCH (08:56)
[2020-11-19] MEDS: Lisinopril 10mg tab ORAL SCH (08:57)
[2020-11-19] MEDS: dexAMETHasone 10mg/ml Inj IV SCH (08:58)
--- NOTE | 2020-11-19 09:05 | Infectious Diseases Prog Note ---
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 Appearance is nonspecific, may reflect bilateral infiltrates versus edema/fluid overload. Flu neg MRSA nares neg BLE US neg for DVT 11/15 ESRD on HD From SNF Plan: Stop dex 6mg daily #6/10 given satting well on RA, on 1-2L NC for comfort only, chest pain If satting >94% on RA then ok to d/c home from ID standpoint. Can d/c COVID isolation on discharge given she is >10 days out from diagnosis and improved Monitor off abx, doing well from resp standpoint and normal WBC 11/19 SP dex #6, stopped given doing well on RA Not candidate for RDV given ESRD Convalescent plasma not available at this institution and pt too far out from dx to benefit Monitor CBC/CMP Monitor resp status Monitor temp curve, hemodynamics D/w RN Thank you for this consult. [facility] will continue to follow. Subjective Allergies: Coded Allergies: ACETAMINOPHEN (Verified Allergy, Unknown, 11/12/20) MORPHINE (Verified Allergy, Unknown, 11/12/20) AF NAD on RA satting 100% - on exam on 1-2L NC for comfort per RN WBC 10.8 Objective Last 24 Hour Vital Signs Date Time Temp Pulse Resp B/P (MAP) Pulse Ox O2 Delivery O2 Flow Rate FiO2 11/19/20 05:59 167/79 11/19/20 04:00 99.6 82 20 165/80 (108) 100 11/19/20 04:00 84 11/19/20 01:26 177/87 11/19/20 01:00 80 162/74 (103) 11/19/20 00:00 99.3 81 19 170/76 (107) 100 11/19/20 00:00 80 11/18/20 21:49 175/86 11/18/20 21:00 Room Air 11/18/20 20:00 81 11/18/20 20:00 99.9 82 19 164/76 (105) 100 11/18/20 17:29 87 170/82 11/18/20 16:00 97.7 87 20 170/82 (111) 98 11/18/20 16:00 87 11/18/20 16:00 74 11/18/20 14:18 188/94 11/18/20 12:38 173/94 11/18/20 12:00 83 11/18/20 12:00 97.5 81 20 173/94 (120) 100 11/18/20 12:00 74 11/18/20 10:07 81 155/81 11/18/20 10:06 155/81 Height (Feet): 5 Height (Inches): 3.00 Weight (Pounds): 90 Gen: NAD HEENT: NCAT Pulm: BL chest rise Abd: Non-distended Ext: No c/c/e Skin: No visible rashes Neuro: Awake Laboratory Tests Test 11/18/20 09:50 11/18/20 12:42 11/18/20 17:30 11/18/20 21:57 White Blood Count 10.4 K/UL (4.8-10.8) Red Blood Count 4.52 M/UL (4.20-5.40) Hemoglobin 9.7 G/DL (12.0-16.0) L Hematocrit 32.9 % (37.0-47.0) L Mean Corpuscular Volume 73 FL (80-99) L Mean Corpuscular Hemoglobin 21.5 PG (27.0-31.0) L Mean Corpuscular Hemoglobin Concent 29.6 G/DL (32.0-36.0) L Red Cell Distribution Width 20.4 % (11.6-14.8) H Platelet Count 155 K/UL (150-450) Mean Platelet Volume 8.5 FL (6.5-10.1) Neutrophils (%) (Auto) 67.3 % (45.0-75.0) Lymphocytes (%) (Auto) 17.5 % (20.0-45.0) L Monocytes (%) (Auto) 10.0 % (1.0-10.0) Eosinophils (%) (Auto) 3.5 % (0.0-3.0) H Basophils (%) (Auto) 1.7 % (0.0-2.0) Sodium Level 136 MMOL/L (136-145) Potassium Level 4.6 MMOL/L (3.5-5.1) Chloride Level 103 MMOL/L (98-107) Carbon Dioxide Level 24 MMOL/L (21-32) Anion Gap 9 mmol/L (5-15) Blood Urea Nitrogen 41 mg/dL (7-18) H Creatinine 3.5 MG/DL (0.55-1.30) H Estimat Glomerular Filtration Rate 13.3 mL/min (>60) Glucose Level 229 MG/DL (74-106) #H Calcium Level 7.4 MG/DL (8.5-10.1) L Phosphorus Level 4.4 MG/DL (2.5-4.9) Magnesium Level 2.2 MG/DL (1.8-2.4) Total Bilirubin 0.4 MG/DL (0.2-1.0) Aspartate Amino Transf (AST/SGOT) 27 U/L (15-37) Alanine Aminotransferase (ALT/SGPT) 37 U/L (12-78) Alkaline Phosphatase 454 U/L (46-116) H C-Reactive Protein, Quantitative < 0.4 mg/dL (0.00-0.90) Pro-B-Type Natriuretic Peptide 87125 pg/mL (0-125) H Total Protein 6.2 G/DL (6.4-8.2) L Albumin 2.1 G/DL (3.4-5.0) L Globulin 4.1 g/dL Albumin/Globulin Ratio 0.5 (1.0-2.7) L POC Whole Blood Glucose 286 MG/DL (74-106) H Pending 213 MG/DL (74-106) H Test 11/19/20 06:02 11/19/20 07:26 POC Whole Blood Glucose 169 MG/DL (74-106) H White Blood Count 10.8 K/UL (4.8-10.8) Red Blood Count 4.54 M/UL (4.20-5.40) Hemoglobin 10.0 G/DL (12.0-16.0) L Hematocrit 33.0 % (37.0-47.0) L Mean Corpuscular Volume 73 FL (80-99) L Mean Corpuscular Hemoglobin 22.1 PG (27.0-31.0) L Mean Corpuscular Hemoglobin Concent 30.4 G/DL (32.0-36.0) L Red Cell Distribution Width 20.5 % (11.6-14.8) H Platelet Count 175 K/UL (150-450) Mean Platelet Volume 8.5 FL (6.5-10.1) Neutrophils (%) (Auto) 67.1 % (45.0-75.0) Lymphocytes (%) (Auto) 20.2 % (20.0-45.0) Monocytes (%) (Auto) 8.3 % (1.0-10.0) Eosinophils (%) (Auto) 3.2 % (0.0-3.0) H Basophils (%) (Auto) 1.2 % (0.0-2.0) Sodium Level 135 MMOL/L (136-145) L Potassium Level 5.0 MMOL/L (3.5-5.1) Chloride Level 105 MMOL/L (98-107) Carbon Dioxide Level 25 MMOL/L (21-32) Anion Gap 5 mmol/L (5-15) Blood Urea Nitrogen 51 mg/dL (7-18) H Creatinine 4.1 MG/DL (0.55-1.30) H Estimat Glomerular Filtration Rate 11.1 mL/min (>60) Glucose Level 135 MG/DL (74-106) H Calcium Level 7.9 MG/DL (8.5-10.1) L Current Medications Medications (Trade) Dose Ordered Sig/Nisa Route PRN Reason Start Time Stop Time Status Last Admin Dose Admin Albuterol Sulfate (Proventil MDI) 2 puff Q4H PRN INH Shortness of Breath 11/15/20 10:45 02/13/21 10:44 Amlodipine Besylate (Norvasc) 5 mg BID ORAL 11/14/20 18:00 12/14/20 17:59 11/18/20 17:29 Ascorbic Acid (Vitamin C) 500 mg TWICE A DAY ORAL 11/15/20 18:00 12/15/20 17:59 11/19/20 08:55 Aspirin (ASA) 81 mg DAILY ORAL 11/15/20 09:00 12/30/20 08:59 11/19/20 08:54 Bisacodyl (Dulcolax) 10 mg DAILYPRN PRN RECTAL constipation 11/14/20 16:00 02/12/21 15:59 Chlorhexidine Gluconate (Guera-Hex 2%) 1 applic DAILY@1999 TOPIC 11/15/20 20:00 02/13/21 19:59 11/18/20 20:53 Clonidine HCl (Catapres Tab) 0.1 mg Q4H PRN ORAL bp over 165 syst 11/14/20 16:00 02/12/21 15:59 11/19/20 01:26 Dexamethasone Sodium Phosphate (Decadron 10mg/ ml Inj) 6 mg DAILY IV 11/14/20 21:30 11/23/20 09:01 11/19/20 08:58 Dextrose (Dextrose 50%) 25 ml Q30M PRN IV Hypoglycemia 11/16/20 07:30 02/14/21 07:29 Dextrose (Dextrose 50%) 50 ml Q30M PRN IV Hypoglycemia 11/16/20 07:30 02/14/21 07:29 Docusate Sodium (Colace) 100 mg TID ORAL 11/14/20 18:00 12/14/20 17:59 11/19/20 08:54 Enoxaparin Sodium (Lovenox) 30 mg DAILY SUBQ 11/16/20 09:00 02/14/21 08:59 11/19/20 08:56 Epoetin Cheikh (Epoetin Cheikh(ESRD on dialysis)) 10,000 unit WED-WED-WED SUBQ 11/18/20 21:00 02/16/21 20:59 11/18/20 21:49 Gabapentin (Neurontin) 300 mg THREE TIMES A DAY ORAL 11/14/20 18:00 12/14/20 17:59 11/19/20 08:55 Hydralazine HCl (Apresoline) 50 mg Q8HR ORAL 11/15/20 14:00 02/13/21 13:59 11/19/20 05:59 Insulin Aspart (NovoLOG) BEFORE MEALS AND HS SUBQ 11/16/20 11:30 02/14/21 11:29 11/19/20 06:08 Lactulose (Cephulac) 20 gm DAILY ORAL 11/15/20 09:00 12/15/20 08:59 11/19/20 08:55 Levothyroxine Sodium (Synthroid) 88 mcg DAILY@0630 ORAL 11/15/20 06:30 12/15/20 06:29 11/19/20 05:58 Lisinopril (ZestriL) 10 mg DAILY ORAL 11/18/20 09:00 12/18/20 08:59 11/18/20 10:06 Pantoprazole (Protonix) 40 mg BID ORAL 11/14/20 18:00 12/14/20 17:59 11/19/20 08:55 Sevelamer Carbonate (Renvela) 1,600 mg THREE TIMES A DAY ORAL 11/16/20 18:00 02/14/21 17:59 11/19/20 08:54 Tramadol HCl (Ultram) 50 mg Q6H PRN ORAL For Pain 11/15/20 20:30 11/22/20 20:29 11/18/20 21:52 Trazodone HCl (Desyrel) 50 mg BEDTIME ORAL 11/19/20 22:00 12/19/20 21:59 Vitamin D (Vitamin D) 400 unit DAILY ORAL 11/16/20 09:00 12/16/20 08:59 11/19/20 08:54 Zinc Sulfate (Zinc Sulfate) 220 mg DAILY ORAL 11/16/20 09:00 02/14/21 08:59 11/19/20 08:54 Cynthia Weems M.D. Nov 19, 2020 09:05
--- NOTE | 2020-11-19 12:23 | Nephrology Progress Note ---
Assessment/Plan Problem List: (1) ESRD on dialysis (2) Hypertensive kidney disease (3) COVID-19 (4) SOB (shortness of breath) (5) Anemia in chronic kidney disease Assessment COVID-19, pneumonia Shortness of breath, hypoxia End-stage renal disease, right jugular dialysis catheter Low MCV anemia Plan November 19: Due for dialysis today. Medication list reviewed. Blood pressure stable. Continue as is. November 18: Dialyzed yesterday. Labs reviewed. Blood pressure stable. Hemodialysis tomorrow. Continue same management. November 17: Patient seen during dialysis. Tolerating well. Hemoglobin higher. Blood pressure medication adjusted. Continue current management. November 16: Last dialysis November 14. Will order dialysis tomorrow. Patient hemoglobin lower. 1 unit of packed RBC transfusion ordered. Blood pressure better controlled. Phos binders adjusted. Continue per consultants. November 15: Patient dialyzed last night. Labs reviewed. Patient complaining of chest tightness. Medication list reviewed. Blood pressure remains elevated at times. Will adjust blood pressure medication. Next hemodialysis again tomorrow. Previously: Hemodialysis and ultrafiltration 2D echocardiogram Keep the blood pressure blood sugar in check Anemia work-up COVID-19 pneumonia treatment per pulmonary Keep the blood pressure and blood sugar in check Subjective ROS Limited/Unobtainable: No Constitutional: Reports: malaise, weakness Objective Objective Last 24 Hour Vital Signs Date Time Temp Pulse Resp B/P (MAP) Pulse Ox O2 Delivery O2 Flow Rate FiO2 11/19/20 09:00 Nasal Cannula 1.0 11/19/20 08:00 98.6 73 21 137/69 (91) 98 11/19/20 08:00 83 11/19/20 05:59 167/79 11/19/20 04:00 99.6 82 20 165/80 (108) 100 11/19/20 04:00 84 11/19/20 01:26 177/87 11/19/20 01:00 80 162/74 (103) 11/19/20 00:00 99.3 81 19 170/76 (107) 100 11/19/20 00:00 80 11/18/20 21:49 175/86 11/18/20 21:00 Room Air 11/18/20 20:00 81 11/18/20 20:00 99.9 82 19 164/76 (105) 100 11/18/20 17:29 87 170/82 11/18/20 16:00 97.7 87 20 170/82 (111) 98 11/18/20 16:00 87 11/18/20 16:00 74 11/18/20 14:18 188/94 11/18/20 12:38 173/94 Intake and Output 11/18/20 11/19/20 19:00 07:00 Intake Total 380 ml Balance 380 ml Intake Oral 380 ml # Voids 3 Current Medications Medications (Trade) Dose Ordered Sig/Nisa Route PRN Reason Start Time Stop Time Status Last Admin Dose Admin Albuterol Sulfate (Proventil MDI) 2 puff Q4H PRN INH Shortness of Breath 11/15/20 10:45 02/13/21 10:44 Amlodipine Besylate (Norvasc) 5 mg BID ORAL 11/14/20 18:00 12/14/20 17:59 11/18/20 17:29 Ascorbic Acid (Vitamin C) 500 mg TWICE A DAY ORAL 11/15/20 18:00 12/15/20 17:59 11/19/20 08:55 Aspirin (ASA) 81 mg DAILY ORAL 11/15/20 09:00 12/30/20 08:59 11/19/20 08:54 Bisacodyl (Dulcolax) 10 mg DAILYPRN PRN RECTAL constipation 11/14/20 16:00 02/12/21 15:59 Chlorhexidine Gluconate (Guera-Hex 2%) 1 applic DAILY@2000 TOPIC 11/15/20 20:00 02/13/21 19:59 11/18/20 20:53 Clonidine HCl (Catapres Tab) 0.1 mg Q4H PRN ORAL bp over 165 syst 11/14/20 16:00 02/12/21 15:59 11/19/20 01:26 Dextrose (Dextrose 50%) 25 ml Q30M PRN IV Hypoglycemia 11/16/20 07:30 02/14/21 07:29 Dextrose (Dextrose 50%) 50 ml Q30M PRN IV Hypoglycemia 11/16/20 07:30 02/14/21 07:29 Docusate Sodium (Colace) 100 mg TID ORAL 11/14/20 18:00 12/14/20 17:59 11/19/20 08:54 Enoxaparin Sodium (Lovenox) 30 mg DAILY SUBQ 11/16/20 09:00 02/14/21 08:59 11/19/20 08:56 Epoetin Cheikh (Epoetin Cheikh(ESRD on dialysis)) 10,000 unit SUBQ 11/18/20 21:00 02/16/21 20:59 11/18/20 21:49 Gabapentin (Neurontin) 300 mg THREE TIMES A DAY ORAL 11/14/20 18:00 12/14/20 17:59 11/19/20 08:55 Hydralazine HCl (Apresoline) 50 mg Q8HR ORAL 11/15/20 14:00 02/13/21 13:59 11/19/20 05:59 Insulin Aspart (NovoLOG) BEFORE MEALS AND HS SUBQ 11/16/20 11:30 02/14/21 11:29 11/19/20 06:08 Lactulose (Cephulac) 20 gm DAILY ORAL 11/15/20 09:00 12/15/20 08:59 11/19/20 08:55 Levothyroxine Sodium (Synthroid) 88 mcg DAILY@0630 ORAL 11/15/20 06:30 12/15/20 06:29 11/19/20 05:58 Lisinopril (ZestriL) 10 mg DAILY ORAL 11/18/20 09:00 12/18/20 08:59 11/18/20 10:06 Pantoprazole (Protonix) 40 mg BID ORAL 11/14/20 18:00 12/14/20 17:59 11/19/20 08:55 Sevelamer Carbonate (Renvela) 1,600 mg THREE TIMES A DAY ORAL 11/16/20 18:00 02/14/21 17:59 11/19/20 08:54 Tramadol HCl (Ultram) 50 mg Q6H PRN ORAL For Pain 11/15/20 20:30 11/22/20 20:29 11/18/20 21:52 Trazodone HCl (Desyrel) 50 mg BEDTIME ORAL 11/19/20 22:00 12/19/20 21:59 Vitamin D (Vitamin D) 400 unit DAILY ORAL 11/16/20 09:00 12/16/20 08:59 11/19/20 08:54 Zinc Sulfate (Zinc Sulfate) 220 mg DAILY ORAL 11/16/20 09:00 02/14/21 08:59 11/19/20 08:54 Laboratory Tests 11/18/20 12:42: POC Whole Blood Glucose 286H 11/18/20 17:30: POC Whole Blood Glucose [Pending] 11/18/20 21:57: POC Whole Blood Glucose 213H 11/19/20 06:02: POC Whole Blood Glucose 169H 11/19/20 07:26: White Blood Count 10.8, Red Blood Count 4.54, Hemoglobin 10.0L, Hematocrit 33.0L , Mean Corpuscular Volume 73L, Mean Corpuscular Hemoglobin 22.1L, Mean Corpuscular Hemoglobin Concent 30.4L, Red Cell Distribution Width 20.5H, Platelet Count 175, Mean Platelet Volume 8.5, Neutrophils (%) (Auto) 67.1, Lymphocytes (%) (Auto) 20.2, Monocytes (%) (Auto) 8.3, Eosinophils (%) (Auto) 3.2H, Basophils (%) (Auto) 1.2, Sodium Level 135L, Potassium Level 5.0, Chloride Level 105, Carbon Dioxide Level 25, Anion Gap 5, Blood Urea Nitrogen 51H, Creatinine 4.1H, Estimat Glomerular Filtration Rate 11.1, Glucose Level 135H, Calcium Level 7.9L Height (Feet): 5 Height (Inches): 3.00 Weight (Pounds): 90 General Appearance: no apparent distress Cardiovascular: normal rate Respiratory/Chest: decreased breath sounds Abdomen: distended Edi Quintanilla MD Nov 19, 2020 12:23
--- NOTE | 2020-11-19 12:30 | NUR ---
CASE MANAGEMENT:REVIEW 11/19/20 SI: COVID PNA. HYPOTENSION.ESRD ON HD 99.6 84 20 165/80 98% ON 1L/NC H/H-10.0/33.0 BUN+51 CR+4.1 IS: EPOETIN SQ MWF LISINOPRIL PO QD RENVELA PO TID SS INSULIN AC+HS LOVENOX SQ QD VIT D PO QD ZINC PO QD VIT C PO BID HYDRALAZINE PO Q8HRS LACTULOSE PO QD ASA PO QD NORVASC PO BID IV DECADRON QD : TELEMETRY STATUS DCP: FROM [facility] PLAN: MONITOR TEMP
--- NOTE | 2020-11-19 15:34 | Internal Med Progress Note ---
Subjective Date of Service: Nov 19, 2020 Physician Name Oswald Madrid Attending Physician Randy Carpenter MD Current Medications Medications (Trade) Dose Ordered Sig/Nisa Route PRN Reason Start Time Stop Time Status Last Admin Dose Admin Albuterol Sulfate (Proventil MDI) 2 puff Q4H PRN INH Shortness of Breath 11/15/20 10:45 02/13/21 10:44 Amlodipine Besylate (Norvasc) 5 mg BID ORAL 11/14/20 18:00 12/14/20 17:59 11/18/20 17:29 Ascorbic Acid (Vitamin C) 500 mg TWICE A DAY ORAL 11/15/20 18:00 12/15/20 17:59 11/19/20 08:55 Aspirin (ASA) 81 mg DAILY ORAL 11/15/20 09:00 12/30/20 08:59 11/19/20 08:54 Bisacodyl (Dulcolax) 10 mg DAILYPRN PRN RECTAL constipation 11/14/20 16:00 02/12/21 15:59 Chlorhexidine Gluconate (Guera-Hex 2%) 1 applic DAILY@2000 TOPIC 11/15/20 20:00 02/13/21 19:59 11/18/20 20:53 Clonidine HCl (Catapres Tab) 0.1 mg Q4H PRN ORAL bp over 165 syst 11/14/20 16:00 02/12/21 15:59 11/19/20 01:26 Dextrose (Dextrose 50%) 25 ml Q30M PRN IV Hypoglycemia 11/16/20 07:30 02/14/21 07:29 Dextrose (Dextrose 50%) 50 ml Q30M PRN IV Hypoglycemia 11/16/20 07:30 02/14/21 07:29 Docusate Sodium (Colace) 100 mg TID ORAL 11/14/20 18:00 12/14/20 17:59 11/19/20 12:37 Enoxaparin Sodium (Lovenox) 30 mg DAILY SUBQ 11/16/20 09:00 02/14/21 08:59 11/19/20 08:56 Epoetin Cheikh (Epoetin Cheikh(ESRD on dialysis)) 10,000 unit MON-WED-WED SUBQ 11/18/20 21:00 02/16/21 20:59 11/18/20 21:49 Gabapentin (Neurontin) 300 mg THREE TIMES A DAY ORAL 11/14/20 18:00 12/14/20 17:59 11/19/20 12:38 Hydralazine HCl (Apresoline) 50 mg Q8HR ORAL 11/15/20 14:00 02/13/21 13:59 11/19/20 05:59 Insulin Aspart (NovoLOG) BEFORE MEALS AND HS SUBQ 11/16/20 11:30 02/14/21 11:29 11/19/20 12:37 Lactulose (Cephulac) 20 gm DAILY ORAL 11/15/20 09:00 12/15/20 08:59 11/19/20 08:55 Levothyroxine Sodium (Synthroid) 88 mcg DAILY@0630 ORAL 11/15/20 06:30 12/15/20 06:29 11/19/20 05:58 Lisinopril (ZestriL) 10 mg DAILY ORAL 11/18/20 09:00 12/18/20 08:59 11/18/20 10:06 Pantoprazole (Protonix) 40 mg BID ORAL 11/14/20 18:00 12/14/20 17:59 11/19/20 08:55 Sevelamer Carbonate (Renvela) 1,600 mg THREE TIMES A DAY ORAL 11/16/20 18:00 02/14/21 17:59 11/19/20 12:38 Tramadol HCl (Ultram) 50 mg Q6H PRN ORAL For Pain 11/15/20 20:30 11/22/20 20:29 11/18/20 21:52 Trazodone HCl (Desyrel) 50 mg BEDTIME ORAL 11/19/20 22:00 12/19/20 21:59 Vitamin D (Vitamin D) 400 unit DAILY ORAL 11/16/20 09:00 12/16/20 08:59 11/19/20 08:54 Zinc Sulfate (Zinc Sulfate) 220 mg DAILY ORAL 11/16/20 09:00 02/14/21 08:59 11/19/20 08:54 Allergies: Coded Allergies: ACETAMINOPHEN (Verified Allergy, Unknown, 11/12/20) MORPHINE (Verified Allergy, Unknown, 11/12/20) ROS Limited/Unobtainable: No Constitutional: Reports: no symptoms HEENT: Reports: no symptoms Cardiovascular: Reports: no symptoms Respiratory: Reports: no symptoms Gastrointestinal/Abdominal: Reports: no symptoms Genitourinary: Reports: no symptoms Neurologic/Psychiatric: Reports: no symptoms Subjective 60 YO F with history of end stage renal disease, on HD, admitted with hypotension. Cover for Pau pitts-DR Carpenter Objective Last Vital Signs Date Time Temp Pulse Resp B/P (MAP) Pulse Ox O2 Delivery O2 Flow Rate FiO2 11/19/20 14:47 139/81 11/19/20 12:00 96.6 80 19 96 11/19/20 09:00 Nasal Cannula 1.0 Laboratory Tests Test 11/18/20 17:30 11/18/20 21:57 11/19/20 06:02 11/19/20 07:26 POC Whole Blood Glucose Pending 213 MG/DL (74-106) H 169 MG/DL (74-106) H White Blood Count 10.8 K/UL (4.8-10.8) Red Blood Count 4.54 M/UL (4.20-5.40) Hemoglobin 10.0 G/DL (12.0-16.0) L Hematocrit 33.0 % (37.0-47.0) L Mean Corpuscular Volume 73 FL (80-99) L Mean Corpuscular Hemoglobin 22.1 PG (27.0-31.0) L Mean Corpuscular Hemoglobin Concent 30.4 G/DL (32.0-36.0) L Red Cell Distribution Width 20.5 % (11.6-14.8) H Platelet Count 175 K/UL (150-450) Mean Platelet Volume 8.5 FL (6.5-10.1) Neutrophils (%) (Auto) 67.1 % (45.0-75.0) Lymphocytes (%) (Auto) 20.2 % (20.0-45.0) Monocytes (%) (Auto) 8.3 % (1.0-10.0) Eosinophils (%) (Auto) 3.2 % (0.0-3.0) H Basophils (%) (Auto) 1.2 % (0.0-2.0) Sodium Level 135 MMOL/L (136-145) L Potassium Level 5.0 MMOL/L (3.5-5.1) Chloride Level 105 MMOL/L (98-107) Carbon Dioxide Level 25 MMOL/L (21-32) Anion Gap 5 mmol/L (5-15) Blood Urea Nitrogen 51 mg/dL (7-18) H Creatinine 4.1 MG/DL (0.55-1.30) H Estimat Glomerular Filtration Rate 11.1 mL/min (>60) Glucose Level 135 MG/DL (74-106) H Calcium Level 7.9 MG/DL (8.5-10.1) L Test 11/19/20 12:25 POC Whole Blood Glucose Pending Intake and Output 11/18/20 11/19/20 19:00 07:00 Intake Total 380 ml Balance 380 ml Intake Oral 380 ml # Voids 3 Objective Objective GENERAL: awake, more responsive chronically ill-appearing, cachectic, malnutrition HEAD AND NECK: Pupils are equal and reactive to light. Anicteric. Neck was supple. No JVD. LUNGS: fair inspiratory effort, with decreased air at the bases, No wheeze or rhonchi. HEART: S1, S2. Distant heart sounds. No murmur or gallop. CHEST WALL: PermCath on the right side of chest wall. No sign of infection. ABDOMEN: Soft, nondistended, and nontender. Positive bowel sounds. EXTREMITIES: No cyanosis, clubbing, or edema. Muscle atrophy bilateral lower extremities NEUROLOGIC: SIGHT MOUNTER 2 through 12 grossly intact, motor 5/5 on all extremities. RECTAL: Refused and deferred. : Refused and deferred. PSYCHIATRIC: Mood and affect intact. Assessment/Plan Assessment/Plan ASSESSMENT: 1. End-stage renal disease, on hemodialysis. 2. Hyperkalemia. 3. COVID-I9 pneumonia, recovered. 4. Severe protein-calorie malnutrition. 5. Anemia of chronic kidney disease. 6. Hypotension. 7. Hypothyroidism. PLAN: 1. Admit the patient to telemetry 2. Dr. Edi Quintanilla=nephrology consultation 3. Dr. Roland Brink,=Pulmonary Critical Care 4. Dr. Cynthia Weems = Infectious Disease. 5. Code status = Full Code. 6. DVT prophylaxis=heparin subcutaneous. 7. Hemodialysis on 11/19/20 8. S/P transfusion 1unit PRBC 9. Discharge planning: [facility] Oswald Graham MD Nov 19, 2020 15:33
--- NOTE | 2020-11-19 16:36 | Pulmonology Progress Note ---
Subjective ROS Limited/Unobtainable: No Allergies: Coded Allergies: ACETAMINOPHEN (Verified Allergy, Unknown, 11/12/20) MORPHINE (Verified Allergy, Unknown, 11/12/20) Subjective now down to 1 L O2 via NC clinically better having HD Objective Last 24 Hour Vital Signs Date Time Temp Pulse Resp B/P (MAP) Pulse Ox O2 Delivery O2 Flow Rate FiO2 11/19/20 14:47 139/81 11/19/20 12:00 96.6 80 19 139/68 (91) 96 11/19/20 12:00 84 11/19/20 09:00 Nasal Cannula 1.0 11/19/20 08:00 98.6 73 21 137/69 (91) 98 11/19/20 08:00 83 11/19/20 05:59 167/79 11/19/20 04:00 99.6 82 20 165/80 (108) 100 11/19/20 04:00 84 11/19/20 01:26 177/87 11/19/20 01:00 80 162/74 (103) 11/19/20 00:00 99.3 81 19 170/76 (107) 100 11/19/20 00:00 80 11/18/20 21:49 175/86 11/18/20 21:00 Room Air 11/18/20 20:00 81 11/18/20 20:00 99.9 82 19 164/76 (105) 100 11/18/20 17:29 87 170/82 Intake and Output 11/18/20 11/19/20 19:00 07:00 Intake Total 380 ml Balance 380 ml Intake Oral 380 ml # Voids 3 Objective General Appearance: cachetic; awake, chronically ill looking female in NAD Lines, tubes and drains: peripheral HEENT: normocephalic, atraumatic, anicteric, mucous membranes moist, 1 L O2 via NC Neck: non-tender, supple Respiratory/Chest: chest wall non-tender, no accessory muscle use, decreased breath sounds, R chest HD catheter in place Cardiovascular/Chest: normal rate, regular rhythm Abdomen: normal bowel sounds, non tender, soft Extremities: no calf tenderness, no edema Neurologic: abnormal gait - bedridden , alert, responsive Musculoskeletal: atrophy - BLE Laboratory Tests 11/18/20 17:30: POC Whole Blood Glucose [Pending] 11/18/20 21:57: POC Whole Blood Glucose 213H 11/19/20 06:02: POC Whole Blood Glucose 169H 11/19/20 07:26: White Blood Count 10.8, Red Blood Count 4.54, Hemoglobin 10.0L, Hematocrit 33.0L , Mean Corpuscular Volume 73L, Mean Corpuscular Hemoglobin 22.1L, Mean Corpuscular Hemoglobin Concent 30.4L, Red Cell Distribution Width 20.5H, Platelet Count 175, Mean Platelet Volume 8.5, Neutrophils (%) (Auto) 67.1, Lymphocytes (%) (Auto) 20.2, Monocytes (%) (Auto) 8.3, Eosinophils (%) (Auto) 3.2H, Basophils (%) (Auto) 1.2, Sodium Level 135L, Potassium Level 5.0, Chloride Level 105, Carbon Dioxide Level 25, Anion Gap 5, Blood Urea Nitrogen 51H, Creatinine 4.1H, Estimat Glomerular Filtration Rate 11.1, Glucose Level 135H, Calcium Level 7.9L 11/19/20 12:25: POC Whole Blood Glucose [Pending] Current Medications Medications (Trade) Dose Ordered Sig/Nisa Route PRN Reason Start Time Stop Time Status Last Admin Dose Admin Albuterol Sulfate (Proventil MDI) 2 puff Q4H PRN INH Shortness of Breath 11/15/20 10:45 02/13/21 10:44 Amlodipine Besylate (Norvasc) 5 mg BID ORAL 11/14/20 18:00 12/14/20 17:59 11/18/20 17:29 Ascorbic Acid (Vitamin C) 500 mg TWICE A DAY ORAL 11/15/20 18:00 12/15/20 17:59 11/19/20 08:55 Aspirin (ASA) 81 mg DAILY ORAL 11/15/20 09:00 12/30/20 08:59 11/19/20 08:54 Bisacodyl (Dulcolax) 10 mg DAILYPRN PRN RECTAL constipation 11/14/20 16:00 02/12/21 15:59 Chlorhexidine Gluconate (Guera-Hex 2%) 1 applic DAILY@2000 TOPIC 11/15/20 20:00 02/13/21 19:59 11/18/20 20:53 Clonidine HCl (Catapres Tab) 0.1 mg Q4H PRN ORAL bp over 165 syst 11/14/20 16:00 02/12/21 15:59 11/19/20 01:26 Dextrose (Dextrose 50%) 25 ml Q30M PRN IV Hypoglycemia 11/16/20 07:30 02/14/21 07:29 Dextrose (Dextrose 50%) 50 ml Q30M PRN IV Hypoglycemia 11/16/20 07:30 02/14/21 07:29 Docusate Sodium (Colace) 100 mg TID ORAL 11/14/20 18:00 12/14/20 17:59 11/19/20 12:37 Enoxaparin Sodium (Lovenox) 30 mg DAILY SUBQ 11/16/20 09:00 02/14/21 08:59 11/19/20 08:56 Epoetin Cheikh (Epoetin Cheikh(ESRD on dialysis)) 10,000 unit WED- SUBQ 11/18/20 21:00 02/16/21 20:59 11/18/20 21:49 Gabapentin (Neurontin) 300 mg THREE TIMES A DAY ORAL 11/14/20 18:00 12/14/20 17:59 11/19/20 12:38 Hydralazine HCl (Apresoline) 50 mg Q8HR ORAL 11/15/20 14:00 02/13/21 13:59 11/19/20 05:59 Insulin Aspart (NovoLOG) BEFORE MEALS AND HS SUBQ 11/16/20 11:30 02/14/21 11:29 11/19/20 12:37 Lactulose (Cephulac) 20 gm DAILY ORAL 11/15/20 09:00 12/15/20 08:59 11/19/20 08:55 Levothyroxine Sodium (Synthroid) 88 mcg DAILY@0630 ORAL 11/15/20 06:30 12/15/20 06:29 11/19/20 05:58 Lisinopril (ZestriL) 10 mg DAILY ORAL 11/18/20 09:00 12/18/20 08:59 11/18/20 10:06 Pantoprazole (Protonix) 40 mg BID ORAL 11/14/20 18:00 12/14/20 17:59 11/19/20 08:55 Sevelamer Carbonate (Renvela) 1,600 mg THREE TIMES A DAY ORAL 11/16/20 18:00 02/14/21 17:59 11/19/20 12:38 Tramadol HCl (Ultram) 50 mg Q6H PRN ORAL For Pain 11/15/20 20:30 11/22/20 20:29 11/18/20 21:52 Trazodone HCl (Desyrel) 50 mg BEDTIME ORAL 11/19/20 22:00 12/19/20 21:59 Vitamin D (Vitamin D) 400 unit DAILY ORAL 11/16/20 09:00 12/16/20 08:59 11/19/20 08:54 Zinc Sulfate (Zinc Sulfate) 220 mg DAILY ORAL 11/16/20 09:00 02/14/21 08:59 11/19/20 08:54 Assessment/Plan Assessment/Plan ASSESSMENT COVID-19 pneumonia Acute hypoxemic respiratory failure 2/2 pneumonia- requiting NRM initially ESRD, on HD Hypotension, initially -resolved HTN Protein calorie malnutrition Hypoalbuminemia Anemia of chronic kidney disease Hypothyroidism Hyperglycemia due to steroid use PLAN OF CARE tele Date of sx onset: few days prior to presentation to ED Positive test: rapid COVID 19 11/14 + O2 1 L NC HFA s/p Dex Day# 6 -dc today 11/19 by ID Not a candidate for REM given renal failure DVT PPX: Lovenox D dimer -3.85 Venous Duplex BLE 11/15 NGT Trend CRP-1.6 -1.1-<0.4 abx per ID recs -currently off abx as per ID rec supportive care: vit A, D and zinc encourage prone position as tolerated monitor volumes and renal function Fup with consultants recs FC BS management ( s/p 1 dose of Insulin 10 u due to hyperglycemia) started SSI no concentrated sweets diet pt is not diabetic HgA1c 5.3 hyperglycemia likely due to steroids HD as per nephro recs BP management with current regimen and optimize further as needed continue levothyroxine, TSH WNL monitor HH with goal to keep Hgb above 7 dietary eval clinically improving dc plan soon case discussed and evaluated by supervising physician Giselle Valentin NP Nov 19, 2020 16:36
--- NOTE | 2020-11-19 19:30 | NUR ---
NURSE NOTES: Received pt and report from MICH Bowling. Observed pt resting in bed with both eyes open. Pt is A/Ox3. property assessment monitor is in placed; pt is NSR. IV site intact, asymptomatic and patent. Pt is on 1LPM O2 via NC; sating at 99%. No complaints of chest pain or acute respiratory distress. Bed is in the lowest position and locked. Call light and bedside table is within reach. Per dayshift nurse, awaiting HD with [facility] Nephrology. Will continue plan of care.
--- NOTE | 2020-11-19 19:31 | NUR ---
NURSE HAND-OFF REPORT: Important Events on Shift:[]pt pending dialysis still. 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 Vital Sign Comment: [] EKG Rhythm: Sinus Rhythm Rhythm change?: N MD Notified?: - MD Response: Latest Rouse Fall Score: 45 Fall Risk: High Risk Safety Measures: Call light Within Reach, Bed Alarm Zone 1, Side Rails Side Rails x2, Bed position Low and Locked. Fall Precautions: y Yellow Socks y Yellow Gown y Door Sign y Patient Fall Education Report given to [].Marleni/RN
[2020-11-19] MEDS: Dyna-Hex 2% Top Sol 2oz TOPIC SCH (20:23)
[2020-11-19] MEDS ORDERED: TraZODone 100mg tab ORAL SCH (22:00)
--- NOTE | 2020-11-19 23:19 | NUR ---
NURSE NOTES: Per VIP dialysis nurse, Scot, she is unable to dialyze the pt today due to staffing issues and that pt will be dialyze tomorrow. Dr. Quintanilla made aware by RN. No new orders at this time.
--- NOTE | 2020-11-19 23:41 | NUR ---
NURSE NOTES: Charge nurse, Adriane, and supervisor pipelines, Yamil, made aware that pt is unable to receive dialysis today.
[2020-11-20] VITALS (7 sets, daily range): BP systolic 136–171; BP diastolic 72–85
--- NOTE | 2020-11-20 02:13 | NUR ---
NURSE NOTES: Observed pt resting in bed with both eyes closed. Pt is arousable to voice. No complaints of CP or signs/symptoms of acute distress noted. Will continue plan of care.
[2020-11-20] MEDS: HydrALAZINE 50mg tab ORAL SCH ×2 (05:59→14:54)
[2020-11-20] MEDS: NovoLOG Insulin Flexpen SUBQ SCH ×3 (06:00→16:30)
--- NOTE | 2020-11-20 07:34 | NUR ---
NURSE HAND-OFF REPORT: Important Events on Shift: No significant changes during hourly shift manager. Pt has a good appetite. No fever, CP, or respiratory distress. Patient Status: Stable Diet: Renal Pending Orders: HD Pending Results/Labs: AM Labs Pending MD notification: N Latest Vital Signs: Temperature 97.9 , Pulse 61 , B/P 161 /86 , Respiratory Rate 17 , O2 SAT 100 , Non-Rebreather, O2 Flow Rate 1.0 . EKG Rhythm: Sinus Rhythm Rhythm change?: N Latest Rouse Fall Score: 45 Fall Risk: High Risk Safety Measures: Call light Within Reach, Bed Alarm Zone 1, Side Rails Side Rails x2, Bed position Low and Locked. Fall Precautions: Yellow Socks Yellow Gown Door Sign Patient Fall Education Report given to MICH Olivier..
[2020-11-20 07:45] LABS: BASOPHILS % (AUTO) 1.5 % (0.0-2.0); EOSINOPHILS % (AUTO) 2.7 % (0.0-3.0); HEMATOCRIT 31.2 % (37.0-47.0); HEMOGLOBIN 9.6 G/DL (12.0-16.0); LYMPHOCYTES % (AUTO) 22.4 % (20.0-45.0); MEAN CORPUSCULAR VOLUME 71 FL (80-99); MONOCYTES % (AUTO) 5.9 % (1.0-10.0); NEUTROPHILS % (AUTO) 67.5 % (45.0-75.0); PLATELET COUNT 175 K/UL (150-450); RED CELL DISTRIBUTION WIDTH 20.5 % (11.6-14.8); WHITE BLOOD COUNT 11.2 K/UL (4.8-10.8)
[2020-11-20 07:57] LABS: ALANINE AMINOTRANSFERASE 37 U/L (12-78); ALBUMIN 1.9 G/DL (3.4-5.0); ALBUMIN/GLOBULIN RATIO 0.5 (1.0-2.7); ALKALINE PHOSPHATASE 404 U/L (46-116); ANION GAP 8 mmol/L (5-15); ASPARTATE AMINO TRANSFERASE 32 U/L (15-37); BILIRUBIN,TOTAL 0.1 MG/DL (0.2-1.0); CALCIUM 8.3 MG/DL (8.5-10.1); CARBON DIOXIDE 22 MMOL/L (21-32); CHLORIDE 105 MMOL/L (98-107); CREATININE 4.4 MG/DL (0.55-1.30); PHOSPHORUS 4.3 MG/DL (2.5-4.9); POTASSIUM 4.9 MMOL/L (3.5-5.1); SODIUM 135 MMOL/L (136-145)
[2020-11-20 08:05] LABS: BLOOD UREA NITROGEN 57 mg/dL (7-18)
--- NOTE | 2020-11-20 08:06 | NUR ---
NURSE NOTES: Report received from Marleni RN. Patient seen on rounds, AxOx3, on O2 at 1lpm via NC with no signs of acute distress, will attempt to wean to room air if tolerated. Left subclavian permacath patent and intact with no signs of infiltration or bleeding. PIV on right hand G.22 patent and intact. Per nurse pt missed hemodialysis scheduled for yesterday and MD is aware. Pt is rescheduled for dialysis today, Nurse Young dialysis nurse made aware. Bed low and locked, siderails up x2, call light placed within reach and instructed to call nurse for assistance. Will continue to monitor.
[2020-11-20] MEDS: Lisinopril 10mg tab ORAL SCH (09:00)
[2020-11-20] MEDS: Vitamin D 400 units TAB ORAL SCH (09:13)
[2020-11-20] MEDS: Aspirin Baby 81mg ORAL SCH (09:13)
[2020-11-20] MEDS: Docusate 100mg cap ORAL SCH ×3 (09:13→18:00)
[2020-11-20] MEDS: Ascorbic Acid 500mg tab ORAL SCH ×2 (09:14→18:00)
[2020-11-20] MEDS: Lactulose 20gm/30ml UDC ORAL SCH (09:14)
[2020-11-20] MEDS: Zinc Sulfate 220mg ORAL SCH (09:14)
[2020-11-20] MEDS: Enoxaparin 30mg Inj SUBQ SCH (09:15)
--- NOTE | 2020-11-20 09:22 | Infectious Diseases Prog Note ---
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 Appearance is nonspecific, may reflect bilateral infiltrates versus edema/fluid overload. Flu neg MRSA nares neg BLE US neg for DVT 11/15 ESRD on HD From SNF Plan: Cont to monitor off abx OK to d/c home from ID standpoint. Can d/c COVID isolation on discharge given s he is >10 days out from diagnosis and improved 11/19 SP dex #6, stopped given doing well on RA Not candidate for RDV given ESRD Convalescent plasma not available at this institution and pt too far out from dx to benefit Monitor CBC/CMP Monitor resp status Monitor temp curve, hemodynamics D/w RN Thank you for this consult. [facility] will continue to follow. Subjective Allergies: Coded Allergies: ACETAMINOPHEN (Verified Allergy, Unknown, 11/12/20) MORPHINE (Verified Allergy, Unknown, 11/12/20) AF NAD on RA satting 100%, on NC for comfort WBC 11, stable Reports breathing is fine Objective Last 24 Hour Vital Signs Date Time Temp Pulse Resp B/P (MAP) Pulse Ox O2 Delivery O2 Flow Rate FiO2 11/20/20 09:00 138/84 11/20/20 09:00 72 138/84 11/20/20 05:59 161/86 11/20/20 04:00 97.9 61 17 147/77 (100) 100 11/20/20 04:00 61 11/20/20 01:19 171/85 11/20/20 01:00 70 157/75 (102) 11/20/20 00:00 98.1 73 17 171/85 (113) 99 11/20/20 00:00 64 11/19/20 21:49 165/83 11/19/20 21:00 Nasal Cannula 1.0 11/19/20 20:00 97.8 94 19 165/63 (97) 99 11/19/20 20:00 70 11/19/20 16:00 71 11/19/20 16:00 98.7 68 18 130/77 (94) 98 11/19/20 14:47 139/81 11/19/20 12:00 96.6 80 19 139/68 (91) 96 11/19/20 12:00 84 Height (Feet): 5 Height (Inches): 3.00 Weight (Pounds): 90 Gen: NAD HEENT: NCAT Pulm: BL chest rise Abd: Non-distended Ext: No c/c/e Skin: No visible rashes Neuro: Awake Laboratory Tests Test 11/19/20 12:25 11/19/20 17:34 11/19/20 21:10 11/20/20 05:51 POC Whole Blood Glucose Pending 240 MG/DL (74-106) H 315 MG/DL (74-106) H 165 MG/DL (74-106) H Test 11/20/20 06:12 White Blood Count 11.2 K/UL (4.8-10.8) H Red Blood Count 4.40 M/UL (4.20-5.40) Hemoglobin 9.6 G/DL (12.0-16.0) L Hematocrit 31.2 % (37.0-47.0) L Mean Corpuscular Volume 71 FL (80-99) L Mean Corpuscular Hemoglobin 21.8 PG (27.0-31.0) L Mean Corpuscular Hemoglobin Concent 30.8 G/DL (32.0-36.0) L Red Cell Distribution Width 20.5 % (11.6-14.8) H Platelet Count 175 K/UL (150-450) Mean Platelet Volume 8.1 FL (6.5-10.1) Neutrophils (%) (Auto) 67.5 % (45.0-75.0) Lymphocytes (%) (Auto) 22.4 % (20.0-45.0) Monocytes (%) (Auto) 5.9 % (1.0-10.0) Eosinophils (%) (Auto) 2.7 % (0.0-3.0) Basophils (%) (Auto) 1.5 % (0.0-2.0) Sodium Level 135 MMOL/L (136-145) L Potassium Level 4.9 MMOL/L (3.5-5.1) Chloride Level 105 MMOL/L (98-107) Carbon Dioxide Level 22 MMOL/L (21-32) Anion Gap 8 mmol/L (5-15) Blood Urea Nitrogen 57 mg/dL (7-18) H Creatinine 4.4 MG/DL (0.55-1.30) H Estimat Glomerular Filtration Rate 10.2 mL/min (>60) Glucose Level 140 MG/DL (74-106) H Uric Acid 6.2 MG/DL (2.6-7.2) Calcium Level 8.3 MG/DL (8.5-10.1) L Phosphorus Level 4.3 MG/DL (2.5-4.9) Magnesium Level 2.4 MG/DL (1.8-2.4) Total Bilirubin 0.1 MG/DL (0.2-1.0) L Aspartate Amino Transf (AST/SGOT) 32 U/L (15-37) Alanine Aminotransferase (ALT/SGPT) 37 U/L (12-78) Alkaline Phosphatase 404 U/L (46-116) H C-Reactive Protein, Quantitative < 0.4 mg/dL (0.00-0.90) Pro-B-Type Natriuretic Peptide 92139 pg/mL (0-125) H Total Protein 5.6 G/DL (6.4-8.2) L Albumin 1.9 G/DL (3.4-5.0) L Globulin 3.7 g/dL Albumin/Globulin Ratio 0.5 (1.0-2.7) L Current Medications Medications (Trade) Dose Ordered Sig/Nisa Route PRN Reason Start Time Stop Time Status Last Admin Dose Admin Albuterol Sulfate (Proventil MDI) 2 puff Q4H PRN INH Shortness of Breath 11/15/20 10:45 02/13/21 10:44 Amlodipine Besylate (Norvasc) 5 mg BID ORAL 11/14/20 18:00 12/14/20 17:59 11/18/20 17:29 Ascorbic Acid (Vitamin C) 500 mg TWICE A DAY ORAL 11/15/20 18:00 12/15/20 17:59 11/20/20 09:14 Aspirin (ASA) 81 mg DAILY ORAL 11/15/20 09:00 12/30/20 08:59 11/20/20 09:13 Bisacodyl (Dulcolax) 10 mg DAILYPRN PRN RECTAL constipation 11/14/20 16:00 02/12/21 15:59 Chlorhexidine Gluconate (Guera-Hex 2%) 1 applic DAILY@1999 TOPIC 11/15/20 20:00 4/15/21 19:59 11/19/20 20:23 Clonidine HCl (Catapres Tab) 0.1 mg Q4H PRN ORAL bp over 165 syst 11/14/20 16:00 02/12/21 15:59 11/20/20 01:19 Dextrose (Dextrose 50%) 25 ml Q30M PRN IV Hypoglycemia 11/16/20 07:30 02/14/21 07:29 Dextrose (Dextrose 50%) 50 ml Q30M PRN IV Hypoglycemia 11/16/20 07:30 02/14/21 07:29 Docusate Sodium (Colace) 100 mg TID ORAL 11/14/20 18:00 12/14/20 17:59 11/20/20 09:13 Enoxaparin Sodium (Lovenox) 30 mg DAILY SUBQ 11/16/20 09:00 02/14/21 08:59 11/20/20 09:15 Epoetin Cheikh (Epoetin Cheikh(ESRD on dialysis)) 10,000 unit SUBQ 11/18/20 21:00 02/16/21 20:59 11/18/20 21:49 Gabapentin (Neurontin) 300 mg THREE TIMES A DAY ORAL 11/14/20 18:00 12/14/20 17:59 11/20/20 09:13 Hydralazine HCl (Apresoline) 50 mg Q8HR ORAL 11/15/20 14:00 02/13/21 13:59 11/20/20 05:59 Insulin Aspart (NovoLOG) BEFORE MEALS AND HS SUBQ 11/16/20 11:30 02/14/21 11:29 11/20/20 06:00 Lactulose (Cephulac) 20 gm DAILY ORAL 11/15/20 09:00 12/15/20 08:59 11/20/20 09:14 Levothyroxine Sodium (Synthroid) 88 mcg DAILY@0630 ORAL 11/15/20 06:30 12/15/20 06:29 11/20/20 05:58 Lisinopril (ZestriL) 10 mg DAILY ORAL 11/18/20 09:00 12/18/20 08:59 11/18/20 10:06 Pantoprazole (Protonix) 40 mg BID ORAL 11/14/20 18:00 12/14/20 17:59 11/20/20 09:13 Sevelamer Carbonate (Renvela) 1,600 mg THREE TIMES A DAY ORAL 11/16/20 18:00 02/14/21 17:59 11/20/20 09:14 Tramadol HCl (Ultram) 50 mg Q6H PRN ORAL For Pain 11/15/20 20:30 11/22/20 20:29 11/19/20 21:50 Trazodone HCl (Desyrel) 50 mg BEDTIME ORAL 11/19/20 22:00 12/19/20 21:59 11/19/20 22:35 Vitamin D (Vitamin D) 400 unit DAILY ORAL 11/16/20 09:00 12/16/20 08:59 11/20/20 09:13 Zinc Sulfate (Zinc Sulfate) 220 mg DAILY ORAL 11/16/20 09:00 02/14/21 08:59 11/20/20 09:14 Cynthia Weems M.D. Nov 20, 2020 09:22
[2020-11-20] MEDS: traMADol 50mg tab ORAL PRN (09:33)
[2020-11-20] MEDS ORDERED: RENVELA800 MG ORAL (09:54)
[2020-11-20] MEDS ORDERED: APRESOLINE50 MG ORAL (09:54)
[2020-11-20] MEDS ORDERED: ASCORBIC ACID500 M4 ORAL (09:54)
[2020-11-20] MEDS ORDERED: ZESTRIL10 M1 ORAL (09:54)
[2020-11-20] MEDS ORDERED: CLONIDINE HCL0.1 MG ORAL (09:54)
[2020-11-20] MEDS ORDERED: NORVASC5 MG ORAL (09:54)
[2020-11-20] MEDS ORDERED: ALBUTEROL SULF8.5 G1 INH (09:54)
[2020-11-20] MEDS ORDERED: ZINC SULFATE220 M2 ORAL (09:54)
[2020-11-20] MEDS ORDERED: NOVOLOG100 UNITS1 SUBQ (09:54)
[2020-11-20] MEDS ORDERED: VITAMIN D310 MCG ORAL (09:54)
--- NOTE | 2020-11-20 09:55 | Internal Med Progress Note ---
Subjective Date of Service: Nov 20, 2020 Physician Name Oswald Madrid Attending Physician Randy Carpenter MD Current Medications Medications (Trade) Dose Ordered Sig/Nisa Route PRN Reason Start Time Stop Time Status Last Admin Dose Admin Albuterol Sulfate (Proventil MDI) 2 puff Q4H PRN INH Shortness of Breath 11/15/20 10:45 02/13/21 10:44 Amlodipine Besylate (Norvasc) 5 mg BID ORAL 11/14/20 18:00 12/14/20 17:59 11/18/20 17:29 Ascorbic Acid (Vitamin C) 500 mg TWICE A DAY ORAL 11/15/20 18:00 12/15/20 17:59 11/20/20 09:14 Aspirin (ASA) 81 mg DAILY ORAL 11/15/20 09:00 12/30/20 08:59 11/20/20 09:13 Bisacodyl (Dulcolax) 10 mg DAILYPRN PRN RECTAL constipation 11/14/20 16:00 02/12/21 15:59 Chlorhexidine Gluconate (Guera-Hex 2%) 1 applic DAILY@2000 TOPIC 11/15/20 20:00 02/13/21 19:59 11/19/20 20:23 Clonidine HCl (Catapres Tab) 0.1 mg Q4H PRN ORAL bp over 165 syst 11/14/20 16:00 02/12/21 15:59 11/20/20 01:19 Dextrose (Dextrose 50%) 25 ml Q30M PRN IV Hypoglycemia 11/16/20 07:30 02/14/21 07:29 Dextrose (Dextrose 50%) 50 ml Q30M PRN IV Hypoglycemia 11/16/20 07:30 02/14/21 07:29 Docusate Sodium (Colace) 100 mg TID ORAL 11/14/20 18:00 12/14/20 17:59 11/20/20 09:13 Enoxaparin Sodium (Lovenox) 30 mg DAILY SUBQ 11/16/20 09:00 02/14/21 08:59 11/20/20 09:15 Epoetin Cheikh (Epoetin Cheikh(ESRD on dialysis)) 10,000 unit WED-WED-WED SUBQ 11/18/20 21:00 02/16/21 20:59 11/18/20 21:49 Gabapentin (Neurontin) 300 mg THREE TIMES A DAY ORAL 11/14/20 18:00 12/14/20 17:59 11/20/20 09:13 Hydralazine HCl (Apresoline) 50 mg Q8HR ORAL 11/15/20 14:00 02/13/21 13:59 11/20/20 05:59 Insulin Aspart (NovoLOG) BEFORE MEALS AND HS SUBQ 11/16/20 11:30 02/14/21 11:29 11/20/20 06:00 Lactulose (Cephulac) 20 gm DAILY ORAL 11/15/20 09:00 12/15/20 08:59 11/20/20 09:14 Levothyroxine Sodium (Synthroid) 88 mcg DAILY@0630 ORAL 11/15/20 06:30 12/15/20 06:29 11/20/20 05:58 Lisinopril (ZestriL) 10 mg DAILY ORAL 11/18/20 09:00 12/18/20 08:59 11/18/20 10:06 Pantoprazole (Protonix) 40 mg BID ORAL 11/14/20 18:00 12/14/20 17:59 11/20/20 09:13 Sevelamer Carbonate (Renvela) 1,600 mg THREE TIMES A DAY ORAL 11/16/20 18:00 02/14/21 17:59 11/20/20 09:14 Tramadol HCl (Ultram) 50 mg Q6H PRN ORAL For Pain 11/15/20 20:30 11/22/20 20:29 11/20/20 09:33 Trazodone HCl (Desyrel) 50 mg BEDTIME ORAL 11/19/20 22:00 12/19/20 21:59 11/19/20 22:35 Vitamin D (Vitamin D) 400 unit DAILY ORAL 11/16/20 09:00 12/16/20 08:59 11/20/20 09:13 Zinc Sulfate (Zinc Sulfate) 220 mg DAILY ORAL 11/16/20 09:00 02/14/21 08:59 11/20/20 09:14 Allergies: Coded Allergies: ACETAMINOPHEN (Verified Allergy, Unknown, 11/12/20) MORPHINE (Verified Allergy, Unknown, 11/12/20) ROS Limited/Unobtainable: No Constitutional: Reports: no symptoms HEENT: Reports: no symptoms Cardiovascular: Reports: no symptoms Respiratory: Reports: no symptoms Gastrointestinal/Abdominal: Reports: no symptoms Genitourinary: Reports: no symptoms Neurologic/Psychiatric: Reports: no symptoms Subjective 60 YO F with history of end stage renal disease, on HD, admitted with hypotension. Cover for Int Wellington Carpenter Objective Last Vital Signs Date Time Temp Pulse Resp B/P (MAP) Pulse Ox O2 Delivery O2 Flow Rate FiO2 11/20/20 09:00 138/84 11/20/20 09:00 72 11/20/20 04:00 97.9 17 100 11/19/20 21:00 Nasal Cannula 1.0 Laboratory Tests Test 11/19/20 12:25 11/19/20 17:34 11/19/20 21:10 11/20/20 05:51 POC Whole Blood Glucose Pending 240 MG/DL (74-106) H 315 MG/DL (74-106) H 165 MG/DL (74-106) H Test 11/20/20 06:12 White Blood Count 11.2 K/UL (4.8-10.8) H Red Blood Count 4.40 M/UL (4.20-5.40) Hemoglobin 9.6 G/DL (12.0-16.0) L Hematocrit 31.2 % (37.0-47.0) L Mean Corpuscular Volume 71 FL (80-99) L Mean Corpuscular Hemoglobin 21.8 PG (27.0-31.0) L Mean Corpuscular Hemoglobin Concent 30.8 G/DL (32.0-36.0) L Red Cell Distribution Width 20.5 % (11.6-14.8) H Platelet Count 175 K/UL (150-450) Mean Platelet Volume 8.1 FL (6.5-10.1) Neutrophils (%) (Auto) 67.5 % (45.0-75.0) Lymphocytes (%) (Auto) 22.4 % (20.0-45.0) Monocytes (%) (Auto) 5.9 % (1.0-10.0) Eosinophils (%) (Auto) 2.7 % (0.0-3.0) Basophils (%) (Auto) 1.5 % (0.0-2.0) Sodium Level 135 MMOL/L (136-145) L Potassium Level 4.9 MMOL/L (3.5-5.1) Chloride Level 105 MMOL/L (98-107) Carbon Dioxide Level 22 MMOL/L (21-32) Anion Gap 8 mmol/L (5-15) Blood Urea Nitrogen 57 mg/dL (7-18) H Creatinine 4.4 MG/DL (0.55-1.30) H Estimat Glomerular Filtration Rate 10.2 mL/min (>60) Glucose Level 140 MG/DL (74-106) H Uric Acid 6.2 MG/DL (2.6-7.2) Calcium Level 8.3 MG/DL (8.5-10.1) L Phosphorus Level 4.3 MG/DL (2.5-4.9) Magnesium Level 2.4 MG/DL (1.8-2.4) Total Bilirubin 0.1 MG/DL (0.2-1.0) L Aspartate Amino Transf (AST/SGOT) 32 U/L (15-37) Alanine Aminotransferase (ALT/SGPT) 37 U/L (12-78) Alkaline Phosphatase 404 U/L (46-116) H C-Reactive Protein, Quantitative < 0.4 mg/dL (0.00-0.90) Pro-B-Type Natriuretic Peptide 01999 pg/mL (0-125) H Total Protein 5.6 G/DL (6.4-8.2) L Albumin 1.9 G/DL (3.4-5.0) L Globulin 3.7 g/dL Albumin/Globulin Ratio 0.5 (1.0-2.7) L Intake and Output 11/19/20 11/20/20 19:00 07:00 Intake Total 420 ml 260 ml Balance 420 ml 260 ml Intake Oral 420 ml 260 ml # Voids 1 # Bowel Movements 2 Objective Objective GENERAL: awake, more responsive chronically ill-appearing, cachectic, malnutrition HEAD AND NECK: Pupils are equal and reactive to light. Anicteric. Neck was supple. No JVD. LUNGS: fair inspiratory effort, with decreased air at the bases, No wheeze or rhonchi. HEART: S1, S2. Distant heart sounds. No murmur or gallop. CHEST WALL: PermCath on the right side of chest wall. No sign of infection. ABDOMEN: Soft, nondistended, and nontender. Positive bowel sounds. EXTREMITIES: No cyanosis, clubbing, or edema. Muscle atrophy bilateral lower extremities NEUROLOGIC: ACCESS CONSULTANT 2 through 12 grossly intact, motor 5/5 on all extremities. RECTAL: Refused and deferred. : Refused and deferred. PSYCHIATRIC: Mood and affect intact. Assessment/Plan Assessment/Plan ASSESSMENT: 1. End-stage renal disease, on hemodialysis. 2. Hyperkalemia. 3. COVID-I9 pneumonia, recovered. 4. Severe protein-calorie malnutrition. 5. Anemia of chronic kidney disease. 6. Hypotension. 7. Hypothyroidism. PLAN: 1. Admit the patient to telemetry 2. Dr. Edi Quintanilla=nephrology consultation 3. Dr. Roland Brink,=Pulmonary Critical Care 4. Dr. Cynthia Weems = Infectious Disease. 5. Code status = Full Code. 6. DVT prophylaxis=heparin subcutaneous. 7. Hemodialysis on 11/19/20 8. S/P transfusion 1unit PRBC 9. Discharge planning: [facility] Oswald Graham MD Nov 20, 2020 09:55
--- NOTE | 2020-11-20 10:40 | NUR ---
DISCHARGE PLANNING CLINCALS HAVE BEEN FAXED TO [facility] JEANNE OLSON T: [phone] F: [phone] AWAIT ASSIGNED BED Addendum: 11/20/20 at 1129 by ALEXANDRA GOODMAN LVN LVN CORRECTION PATIENT IS FROM [facility] FAXED
--- NOTE | 2020-11-20 12:23 | Pulmonology Progress Note ---
Subjective ROS Limited/Unobtainable: No Allergies: Coded Allergies: ACETAMINOPHEN (Verified Allergy, Unknown, 11/12/20) MORPHINE (Verified Allergy, Unknown, 11/12/20) Subjective AFVSS on RA-2L Seen during HD Less SOB some cough no FC no CP Objective Last 24 Hour Vital Signs Date Time Temp Pulse Resp B/P (MAP) Pulse Ox O2 Delivery O2 Flow Rate FiO2 11/20/20 09:00 138/84 11/20/20 09:00 72 138/84 11/20/20 09:00 Nasal Cannula 1.0 11/20/20 08:00 98.2 72 18 138/84 (102) 100 11/20/20 08:00 75 11/20/20 05:59 161/86 11/20/20 04:00 97.9 61 17 147/77 (100) 100 11/20/20 04:00 61 11/20/20 01:19 171/85 11/20/20 01:00 70 157/75 (102) 11/20/20 00:00 98.1 73 17 171/85 (113) 99 11/20/20 00:00 64 11/19/20 21:49 165/83 11/19/20 21:00 Nasal Cannula 1.0 11/19/20 20:00 97.8 94 19 165/63 (97) 99 11/19/20 20:00 70 11/19/20 16:00 71 11/19/20 16:00 98.7 68 18 130/77 (94) 98 11/19/20 14:47 139/81 Intake and Output 11/19/20 11/20/20 19:00 07:00 Intake Total 420 ml 260 ml Balance 420 ml 260 ml Intake Oral 420 ml 260 ml # Voids 1 # Bowel Movements 2 General Appearance: WD/WN, no acute distress HEENT: normocephalic, atraumatic, anicteric, mucous membranes moist Respiratory: chest wall non-tender, lungs clear, normal breath sounds, no respiratory distress, no accessory muscle use Cardiovascular: normal peripheral pulses, normal rate, regular rhythm Abdomen: normal bowel sounds, soft, non tender, no organomegaly, non distended, no mass Extremities: no cyanosis, no clubbing, no edema Laboratory Tests 11/19/20 12:25: POC Whole Blood Glucose [Pending] 11/19/20 17:34: POC Whole Blood Glucose 240H 11/19/20 21:10: POC Whole Blood Glucose 315H 11/20/20 05:51: POC Whole Blood Glucose 165H 11/20/20 06:12: White Blood Count 11.2H, Red Blood Count 4.40, Hemoglobin 9.6L, Hematocrit 31.2L , Mean Corpuscular Volume 71L, Mean Corpuscular Hemoglobin 21.8L, Mean Corpuscular Hemoglobin Concent 30.8L, Red Cell Distribution Width 20.5H, Platelet Count 175, Mean Platelet Volume 8.1, Neutrophils (%) (Auto) 67.5, Lymphocytes (%) (Auto) 22.4, Monocytes (%) (Auto) 5.9, Eosinophils (%) (Auto) 2.7, Basophils (%) (Auto) 1.5, Sodium Level 135L, Potassium Level 4.9, Chloride Level 105, Carbon Dioxide Level 22, Anion Gap 8, Blood Urea Nitrogen 57H, Creatinine 4.4H, Estimat Glomerular Filtration Rate 10.2, Glucose Level 140H, Uric Acid 6.2, Calcium Level 8.3L, Phosphorus Level 4.3, Magnesium Level 2.4, Total Bilirubin 0.1L, Aspartate Amino Transf (AST/SGOT) 32, Alanine Aminotr ansferase (ALT/SGPT) 37, Alkaline Phosphatase 404H, C-Reactive Protein, Quantitative < 0.4, Pro-B-Type Natriuretic Peptide 01481F, Total Protein 5.6L, Albumin 1.9L, Globulin 3.7, Albumin/Globulin Ratio 0.5L 11/20/20 11:14: POC Whole Blood Glucose 178H Current Medications Medications (Trade) Dose Ordered Sig/Nisa Route PRN Reason Start Time Stop Time Status Last Admin Dose Admin Albuterol Sulfate (Proventil MDI) 2 puff Q4H PRN INH Shortness of Breath 11/15/20 10:45 02/13/21 10:44 Amlodipine Besylate (Norvasc) 5 mg BID ORAL 11/14/20 18:00 12/14/20 17:59 11/18/20 17:29 Ascorbic Acid (Vitamin C) 500 mg TWICE A DAY ORAL 11/15/20 18:00 12/15/20 17:59 11/20/20 09:14 Aspirin (ASA) 81 mg DAILY ORAL 11/15/20 09:00 3/1/21 08:59 11/20/20 09:13 Bisacodyl (Dulcolax) 10 mg DAILYPRN PRN RECTAL constipation 11/14/20 16:00 02/12/21 15:59 Chlorhexidine Gluconate (Guera-Hex 2%) 1 applic DAILY@2000 TOPIC 11/15/20 20:00 02/13/21 19:59 11/19/20 20:23 Clonidine HCl (Catapres Tab) 0.1 mg Q4H PRN ORAL bp over 165 syst 11/14/20 16:00 02/12/21 15:59 11/20/20 01:19 Dextrose (Dextrose 50%) 25 ml Q30M PRN IV Hypoglycemia 11/16/20 07:30 02/14/21 07:29 Dextrose (Dextrose 50%) 50 ml Q30M PRN IV Hypoglycemia 11/16/20 07:30 02/14/21 07:29 Docusate Sodium (Colace) 100 mg TID ORAL 11/14/20 18:00 12/14/20 17:59 11/20/20 09:13 Enoxaparin Sodium (Lovenox) 30 mg DAILY SUBQ 11/16/20 09:00 02/14/21 08:59 11/20/20 09:15 Epoetin Cheikh (Epoetin Cheikh(ESRD on dialysis)) 10,000 unit WED-WED-WED SUBQ 11/18/20 21:00 02/16/21 20:59 11/18/20 21:49 Gabapentin (Neurontin) 300 mg THREE TIMES A DAY ORAL 11/14/20 18:00 12/14/20 17:59 11/20/20 09:13 Hydralazine HCl (Apresoline) 50 mg Q8HR ORAL 11/15/20 14:00 02/13/21 13:59 11/20/20 05:59 Insulin Aspart (NovoLOG) BEFORE MEALS AND HS SUBQ 11/16/20 11:30 02/14/21 11:29 11/20/20 11:34 Lactulose (Cephulac) 20 gm DAILY ORAL 11/15/20 09:00 12/15/20 08:59 11/20/20 09:14 Levothyroxine Sodium (Synthroid) 88 mcg DAILY@0630 ORAL 11/15/20 06:30 2/14/21 06:29 11/20/20 05:58 Lisinopril (ZestriL) 10 mg DAILY ORAL 11/18/20 09:00 12/18/20 08:59 11/18/20 10:06 Pantoprazole (Protonix) 40 mg BID ORAL 11/14/20 18:00 12/14/20 17:59 11/20/20 09:13 Sevelamer Carbonate (Renvela) 1,600 mg THREE TIMES A DAY ORAL 11/16/20 18:00 02/14/21 17:59 11/20/20 09:14 Tramadol HCl (Ultram) 50 mg Q6H PRN ORAL For Pain 11/15/20 20:30 11/22/20 20:29 11/20/20 09:33 Trazodone HCl (Desyrel) 50 mg BEDTIME ORAL 11/19/20 22:00 12/19/20 21:59 11/19/20 22:35 Vitamin D (Vitamin D) 400 unit DAILY ORAL 11/16/20 09:00 12/16/20 08:59 11/20/20 09:13 Zinc Sulfate (Zinc Sulfate) 220 mg DAILY ORAL 11/16/20 09:00 02/14/21 08:59 11/20/20 09:14 Assessment/Plan Problems: (1) COVID-19 (2) SOB (shortness of breath) (3) ESRD on dialysis (4) Dyspnea (5) Anemia in chronic kidney disease (6) Hypertensive kidney disease Assessment/Plan Optimize pulmonary hygiene/mobilize as tolerated PRN O2 PRN HFA's DEX: off REM: not given Abx: None ID recs HD per renal with US as able Aspiration precautions DVT Px: LMWH Roland Queen MD Nov 20, 2020 12:23
--- NOTE | 2020-11-20 12:28 | Surgery Progress Note ---
Surgery Progress Note Subjective Additional Comments worsening renal function ill appearing overall no n/v labs noted exam stable Objective Last 24 Hour Vital Signs Date Time Temp Pulse Resp B/P (MAP) Pulse Ox O2 Delivery O2 Flow Rate FiO2 11/20/20 09:00 138/84 11/20/20 09:00 72 138/84 11/20/20 09:00 Nasal Cannula 1.0 11/20/20 08:00 98.2 72 18 138/84 (102) 100 11/20/20 08:00 75 11/20/20 05:59 161/86 11/20/20 04:00 97.9 61 17 147/77 (100) 100 11/20/20 04:00 61 11/20/20 01:19 171/85 11/20/20 01:00 70 157/75 (102) 11/20/20 00:00 98.1 73 17 171/85 (113) 99 11/20/20 00:00 64 11/19/20 21:49 165/83 11/19/20 21:00 Nasal Cannula 1.0 11/19/20 20:00 97.8 94 19 165/63 (97) 99 11/19/20 20:00 70 11/19/20 16:00 71 11/19/20 16:00 98.7 68 18 130/77 (94) 98 11/19/20 14:47 139/81 I&O Intake and Output 11/19/20 11/20/20 19:00 07:00 Intake Total 420 ml 260 ml Balance 420 ml 260 ml Intake Oral 420 ml 260 ml # Voids 1 # Bowel Movements 2 Dressing: other Wound: other Cardiovascular: RSR Respiratory: decreased breath sounds Abdomen: soft, non-tender, present bowel sounds, non-distended Extremities: edema, no tenderness, no cyanosis Laboratory Tests Test 11/19/20 17:34 11/19/20 21:10 11/20/20 05:51 11/20/20 06:12 POC Whole Blood Glucose 240 MG/DL (74-106) H 315 MG/DL (74-106) H 165 MG/DL (74-106) H White Blood Count 11.2 K/UL (4.8-10.8) H Red Blood Count 4.40 M/UL (4.20-5.40) Hemoglobin 9.6 G/DL (12.0-16.0) L Hematocrit 31.2 % (37.0-47.0) L Mean Corpuscular Volume 71 FL (80-99) L Mean Corpuscular Hemoglobin 21.8 PG (27.0-31.0) L Mean Corpuscular Hemoglobin Concent 30.8 G/DL (32.0-36.0) L Red Cell Distribution Width 20.5 % (11.6-14.8) H Platelet Count 175 K/UL (150-450) Mean Platelet Volume 8.1 FL (6.5-10.1) Neutrophils (%) (Auto) 67.5 % (45.0-75.0) Lymphocytes (%) (Auto) 22.4 % (20.0-45.0) Monocytes (%) (Auto) 5.9 % (1.0-10.0) Eosinophils (%) (Auto) 2.7 % (0.0-3.0) Basophils (%) (Auto) 1.5 % (0.0-2.0) Sodium Level 135 MMOL/L (136-145) L Potassium Level 4.9 MMOL/L (3.5-5.1) Chloride Level 105 MMOL/L (98-107) Carbon Dioxide Level 22 MMOL/L (21-32) Anion Gap 8 mmol/L (5-15) Blood Urea Nitrogen 57 mg/dL (7-18) H Creatinine 4.4 MG/DL (0.55-1.30) H Estimat Glomerular Filtration Rate 10.2 mL/min (>60) Glucose Level 140 MG/DL (74-106) H Uric Acid 6.2 MG/DL (2.6-7.2) Calcium Level 8.3 MG/DL (8.5-10.1) L Phosphorus Level 4.3 MG/DL (2.5-4.9) Magnesium Level 2.4 MG/DL (1.8-2.4) Total Bilirubin 0.1 MG/DL (0.2-1.0) L Aspartate Amino Transf (AST/SGOT) 32 U/L (15-37) Alanine Aminotransferase (ALT/SGPT) 37 U/L (12-78) Alkaline Phosphatase 404 U/L (46-116) H C-Reactive Protein, Quantitative < 0.4 mg/dL (0.00-0.90) Pro-B-Type Natriuretic Peptide 12924 pg/mL (0-125) H Total Protein 5.6 G/DL (6.4-8.2) L Albumin 1.9 G/DL (3.4-5.0) L Globulin 3.7 g/dL Albumin/Globulin Ratio 0.5 (1.0-2.7) L Test 11/20/20 11:14 POC Whole Blood Glucose 178 MG/DL (74-106) H Plan Problems: (1) SOB (shortness of breath) (2) ESRD on dialysis Assessment & Plan: as per renal on HD planned today (3) COVID-19 Assessment & Plan: ++ per pulm and ID respiratory stable for now cxr noted Acute interstitial disease, developing since 11/12/2020. Appearance is nonspecific, may reflect bilateral infiltrates versus edema/fluid overload. (4) Hypertensive kidney disease (5) Anemia in chronic kidney disease (6) Dyspnea (7) Renal failure (8) Abnormal LFTs Assessment & Plan: Patient identified to have significant abnormal labs. G GT alk phos and LDH elevated. AST ALT normal lipase normal. Significance unknown at this time. I have been seeing it with Covid positivity at this time. Liver seems to be functional otherwise within normal limits. Hold on further imaging for this time. Continue with IV hydration dialysis. Trend labs. Will monitor with examination. Baseline abdominal examination thus far is fairly benign lft's resolved diet okay no n/v d/c planning Renny Thornton Nov 20, 2020 12:28
--- NOTE | 2020-11-20 14:05 | Nephrology Progress Note ---
Assessment/Plan Problem List: (1) ESRD on dialysis (2) Hypertensive kidney disease (3) COVID-19 (4) SOB (shortness of breath) (5) Anemia in chronic kidney disease Assessment COVID-19, pneumonia Shortness of breath, hypoxia End-stage renal disease, right jugular dialysis catheter Low MCV anemia Plan November 20: Patient was not dialyzed yesterday as ordered. When visited her this morning, she was on dialysis. Labs reviewed. Continue per consultants. November 19: Due for dialysis today. Medication list reviewed. Blood pressure stable. Continue as is. November 18: Dialyzed yesterday. Labs reviewed. Blood pressure stable. Hemodialysis tomorrow. Continue same management. November 17: Patient seen during dialysis. Tolerating well. Hemoglobin higher. Blood pressure medication adjusted. Continue current management. November 16: Last dialysis November 14. Will order dialysis tomorrow. Patient hemoglobin lower. 1 unit of packed RBC transfusion ordered. Blood pressure better controlled. Phos binders adjusted. Continue per consultants. November 15: Patient dialyzed last night. Labs reviewed. Patient complaining of chest tightness. Medication list reviewed. Blood pressure remains elevated at times. Will adjust blood pressure medication. Next hemodialysis again tomorrow. Previously: Hemodialysis and ultrafiltration 2D echocardiogram Keep the blood pressure blood sugar in check Anemia work-up COVID-19 pneumonia treatment per pulmonary Keep the blood pressure and blood sugar in check Subjective ROS Limited/Unobtainable: No Constitutional: Reports: malaise, weakness Objective Objective Last 24 Hour Vital Signs Date Time Temp Pulse Resp B/P (MAP) Pulse Ox O2 Delivery O2 Flow Rate FiO2 11/20/20 12:00 98.1 63 20 141/74 (96) 98 11/20/20 12:00 74 11/20/20 09:00 138/84 11/20/20 09:00 72 138/84 11/20/20 09:00 Nasal Cannula 1.0 11/20/20 08:00 98.2 72 18 138/84 (102) 100 11/20/20 08:00 75 11/20/20 05:59 161/86 11/20/20 04:00 97.9 61 17 147/77 (100) 100 11/20/20 04:00 61 11/20/20 01:19 171/85 11/20/20 01:00 70 157/75 (102) 11/20/20 00:00 98.1 73 17 171/85 (113) 99 11/20/20 00:00 64 11/19/20 21:49 165/83 11/19/20 21:00 Nasal Cannula 1.0 11/19/20 20:00 97.8 94 19 165/63 (97) 99 11/19/20 20:00 70 11/19/20 16:00 71 11/19/20 16:00 98.7 68 18 130/77 (94) 98 11/19/20 14:47 139/81 Intake and Output 11/19/20 11/20/20 19:00 07:00 Intake Total 420 ml 260 ml Balance 420 ml 260 ml Intake Oral 420 ml 260 ml # Voids 1 # Bowel Movements 2 Current Medications Medications (Trade) Dose Ordered Sig/Nisa Route PRN Reason Start Time Stop Time Status Last Admin Dose Admin Albuterol Sulfate (Proventil MDI) 2 puff Q4H PRN INH Shortness of Breath 11/15/20 10:45 02/13/21 10:44 Amlodipine Besylate (Norvasc) 5 mg BID ORAL 11/14/20 18:00 12/14/20 17:59 11/18/20 17:29 Ascorbic Acid (Vitamin C) 500 mg TWICE A DAY ORAL 11/15/20 18:00 12/15/20 17:59 11/20/20 09:14 Aspirin (ASA) 81 mg DAILY ORAL 11/15/20 09:00 12/30/20 08:59 11/20/20 09:13 Bisacodyl (Dulcolax) 10 mg DAILYPRN PRN RECTAL constipation 11/14/20 16:00 02/12/21 15:59 Chlorhexidine Gluconate (Guera-Hex 2%) 1 applic DAILY@1999 TOPIC 11/15/20 20:00 02/13/21 19:59 11/19/20 20:23 Clonidine HCl (Catapres Tab) 0.1 mg Q4H PRN ORAL bp over 165 syst 11/14/20 16:00 02/12/21 15:59 11/20/20 01:19 Dextrose (Dextrose 50%) 25 ml Q30M PRN IV Hypoglycemia 11/16/20 07:30 02/14/21 07:29 Dextrose (Dextrose 50%) 50 ml Q30M PRN IV Hypoglycemia 11/16/20 07:30 02/14/21 07:29 Docusate Sodium (Colace) 100 mg TID ORAL 11/14/20 18:00 12/14/20 17:59 11/20/20 12:55 Enoxaparin Sodium (Lovenox) 30 mg DAILY SUBQ 11/16/20 09:00 02/14/21 08:59 11/20/20 09:15 Epoetin Cheikh (Epoetin Cheikh(ESRD on dialysis)) 10,000 unit WED- SUBQ 11/18/20 21:00 02/16/21 20:59 11/18/20 21:49 Gabapentin (Neurontin) 300 mg THREE TIMES A DAY ORAL 11/14/20 18:00 12/14/20 17:59 11/20/20 12:55 Hydralazine HCl (Apresoline) 50 mg Q8HR ORAL 11/15/20 14:00 02/13/21 13:59 11/20/20 05:59 Insulin Aspart (NovoLOG) BEFORE MEALS AND HS SUBQ 11/16/20 11:30 02/14/21 11:29 11/20/20 11:34 Lactulose (Cephulac) 20 gm DAILY ORAL 11/15/20 09:00 12/15/20 08:59 11/20/20 09:14 Levothyroxine Sodium (Synthroid) 88 mcg DAILY@0630 ORAL 11/15/20 06:30 12/15/20 06:29 11/20/20 05:58 Lisinopril (ZestriL) 10 mg DAILY ORAL 11/18/20 09:00 12/18/20 08:59 11/18/20 10:06 Pantoprazole (Protonix) 40 mg BID ORAL 11/14/20 18:00 12/14/20 17:59 11/20/20 09:13 Sevelamer Carbonate (Renvela) 1,600 mg THREE TIMES A DAY ORAL 11/16/20 18:00 02/14/21 17:59 11/20/20 12:55 Tramadol HCl (Ultram) 50 mg Q6H PRN ORAL For Pain 11/15/20 20:30 11/22/20 20:29 11/20/20 09:33 Trazodone HCl (Desyrel) 50 mg BEDTIME ORAL 11/19/20 22:00 12/19/20 21:59 11/19/20 22:35 Vitamin D (Vitamin D) 400 unit DAILY ORAL 11/16/20 09:00 12/16/20 08:59 11/20/20 09:13 Zinc Sulfate (Zinc Sulfate) 220 mg DAILY ORAL 11/16/20 09:00 02/14/21 08:59 11/20/20 09:14 Laboratory Tests 11/19/20 17:34: POC Whole Blood Glucose 240H 11/19/20 21:10: POC Whole Blood Glucose 315H 11/20/20 05:51: POC Whole Blood Glucose 165H 11/20/20 06:12: White Blood Count 11.2H, Red Blood Count 4.40, Hemoglobin 9.6L, Hematocrit 31.2L , Mean Corpuscular Volume 71L, Mean Corpuscular Hemoglobin 21.8L, Mean Corpuscul ar Hemoglobin Concent 30.8L, Red Cell Distribution Width 20.5H, Platelet Count 175, Mean Platelet Volume 8.1, Neutrophils (%) (Auto) 67.5, Lymphocytes (%) (Auto) 22.4, Monocytes (%) (Auto) 5.9, Eosinophils (%) (Auto) 2.7, Basophils (%) (Auto) 1.5, Sodium Level 135L, Potassium Level 4.9, Chloride Level 105, Carbon Dioxide Level 22, Anion Gap 8, Blood Urea Nitrogen 57H, Creatinine 4.4H, Estimat Glomerular Filtration Rate 10.2, Glucose Level 140H, Uric Acid 6.2, Calcium Level 8.3L, Phosphorus Level 4.3, Magnesium Level 2.4, Total Bilirubin 0.1L, Aspartate Amino Transf (AST/SGOT) 32, Alanine Aminotransferase (ALT/SGPT) 37, Alkaline Phosphatase 404H, C-Reactive Protein, Quantitative < 0.4, Pro-B-Type Na triuretic Peptide 87129V, Total Protein 5.6L, Albumin 1.9L, Globulin 3.7, Albumin/Globulin Ratio 0.5L 11/20/20 11:14: POC Whole Blood Glucose 178H Height (Feet): 5 Height (Inches): 3.00 Weight (Pounds): 90 General Appearance: no apparent distress Cardiovascular: normal rate Respiratory/Chest: decreased breath sounds Abdomen: distended Edi Quintanilla MD Nov 20, 2020 14:05
--- NOTE | 2020-11-20 14:15 | NUR ---
DISCHARGE PLAN SPOKE WITH CLOTH EXAMINER MACHINE MARITZA CASH [facility] AUTH [id number] ALFONSO STANLEYCINTHYA SMALL [id number] Addendum: 11/20/20 at 1419 by ALEXANDRA GOODMAN LVN LVN [facility] HAS ACCEPTED PATIENT BACK TO ROOM NUMBER 10A
--- NOTE | 2020-11-20 14:33 | NUR ---
*-*DISCHARGE PLANNED*-* PATIENT HAS BEEN ACCEPTED AND WILL BE DISCHARGED TO: [facility] P: [phone] FOR NURSE TO NURSE REPORT ROOM# 10.A [facility] TRANSPORTATION SET FOR 3:30PM S/W SWEETIE [id number]. PLACED A CALL TO PATIENTS GRANDDAUGHTER SAK ROBSON, NO ANSWER, LEFT VOICE MESSAGE IN REGARD TO DISCHARGE. PLAN.
[2020-11-20] MEDS ORDERED: NS 500ML ONE (18:57)
[2020-11-20] MEDS ORDERED: Tubing Blood Filter IV ONE (18:57)
--- NOTE | 2020-11-20 19:32 | NUR ---
NURSE NOTES: Late entry Patient discharged to [facility], AxOx3, not in distress, able to tolerate room air. Skin intact. Right subclavian permacath patent with no signs of bleeding. Pt was hemodialyzed today. Vitals at baseline prior to discharge. All discharge instructions and medications endorsed to [facility] at [facility]. No belongings. Contacted next of kin Sak Colton but no answer, left voicemail to notify of discharge back to [facility]. Patient left accompanied by ambulance personnel.
--- NOTE | 2020-11-22 13:34 | Discharge Summary ---
Discharge Summary Discharge Summary _ Date of admission: 11/14/2020 Date of discharge: 11/20/[address] Carpenter History of Present Illness and Brief Hospital Course Ms. Segura is a 61-year-old female who was sent to ED from SNF for evaluation of hypotension and for missing dialysis. Patient was reported to test positive for COVID-19 on 10/26/2020. Her repeat COVID-19 test via rapid gene assay was positive in the ER. Chest x-ray showed worsening acute interstitial disease compared to prior study on 11/12/2020. She had multiple comorbidities and was admitted to the hospital for further management. Given her acute hypoxemic respiratory failure secondary to pneumonia, she initially required supplemental oxygen via nonrebreather mask. He was started on dexamethasone. However, she was not a candidate for remdesivir given renal failure. She also showed to have elevated inflammatory markers and was given anticoagulation for DVT prophylaxis. Venous duplex ultrasound was negative for lower extremity DVT bilaterally. She was reported to miss her dialysis on the day of arrival. She was able to be dialyzed at the night of admission. Given her low hemoglobin, she was transfused to keep her hemoglobin level above 7. Her H&H improved and was stable after 1 unit of PRBC. Throughout her admission, her medical condition steadily improved. She was eventually weaned off and she showed to be saturating well on room air. Her dialysis was continued at regular intervals. By 11/20/2020, she was medically stable for discharge. She was discharged to SNF in stable condition. Her isolation was discontinued as more than 10 days had passed since her initial diagnosis of COVID-19. Consultants: Surgery Dr. Thornton Infectious disease Dr. Weems Pulmonology Giselle Valentin, [place] Nephrology Dr. King Discharge Condition Improved and stable Final diagnoses COVID-19 pneumonia Lymphopenia ESRD on hemodialysis Hyperkalemia Severe proteincalorie malnutrition Anemia of chronic kidney disease Hypertension Hypothyroidism Abnormal LFTs. I have been assigned to dictate discharge summary for this account. I was not involved in the patient's management Gregg Rodriguez Nov 22, 2020 13:34
--- NOTE | 2020-11-25 12:19 | NUR ---
INSURANCE DC SUMMARY FAXED TO [facility] T: [phone] F: [phone]
== END 2020-11-20 18:58 | DRG 137 ==
LOC: EDBD 10:24 → EMR 10:27 → EDBEDREQ 12:26 → EDBD 14:02 → 2W 14:02 → EDBEDREQ 15:29 → 2E 11-17 05:52
PROC: 5A1D70Z Performance of Urinary Filtration, Intermittent, Less than 6 Hours Per Day (ICD-10-PCS; principal; 2020-11-19)
DX: U07.1 COVID-19 (principal); J12.82 Pneumonia due to coronavirus disease 2019; J96.01 Acute respiratory failure with hypoxia; I12.0 Hypertensive chronic kidney disease with stage 5 chronic kidney disease or end stage renal disease; N18.6 End stage renal disease; Z68.1 Body mass index [BMI] 19.9 or less, adult; Z88.6 Allergy status to analgesic agent; E03.9 Hypothyroidism, unspecified; I95.9 Hypotension, unspecified; N18.9 Chronic kidney disease, unspecified; D63.1 Anemia in chronic kidney disease; E43 Unspecified severe protein-calorie malnutrition; Z99.2 Dependence on renal dialysis; D72.810 Lymphocytopenia
CPT/HCPCS: 36415; 71045; 80048; 80053; 80061; 80076; 82306; 82550; 82553; 82607; 82728; 82746; 82962; 82977; 83036; 83520; 83540; 83550; 83605; 83615; 83690; 83735; 83880; 84100; 84439; 84443; 84481; 84484; 84550; 85007; 85025; 85379; 85610; 85730; 86140; 86706; 86710; 86850; 86900; 86901; 86920; 87040; 87081; 93005; 93306; 93971; 96374; 99291; J1815; U0002

== ENCOUNTER 2020-12-06 17:44 | Inpatient (IN) | payer MEDICAID ==
[~2020-12-06] VITALS: Ht 152.4 cm; Wt 39.9 kg
[~2020-12-06 17:44] MED LIST changes: +ADALAT20 MG ORAL; +ALBUTEROL SULF8.5 G1 INH; +APRESOLINE50 MG ORAL; +ASCORBIC ACID500 M4 ORAL; +ASPIRIN81 MG ORAL; +CLONIDINE HCL0.1 MG ORAL; +DULCOLAX10 MG RC; +MIDODRINE HCL5 MG ORAL; +MILK OF MA400 MG/51 ORAL; +NORVASC5 MG ORAL; +NOVOLOG100 UNITS1 SUBQ; +RENVELA800 MG ORAL; +TRAMADOL HCL50 MG ORAL; +VITAMIN D310 MCG ORAL; +ZESTRIL10 M1 ORAL; +ZINC SULFATE220 M2 ORAL
--- NOTE | 2020-12-06 18:13 | Emergency Room Report ---
History of Present Illness General Chief Complaint: Abdominal Pain Present Illness HPI Disclaimer: Please note that this report is being documented using DRAGON technology. This can lead to erroneous entry secondary to incorrect interpretation by the dictating instrument. HPI: 61-year-old female history of end-stage renal disease, hypothyroid, hypertension, on dialysis Wednesday, history of anemia and diabetes presents for left-sided chest pain and abdominal pain. She has a history of chronic pancreatitis. Also history of chronic chest pain. Nothing makes it better or worse. She denies any nausea vomiting diarrhea. She missed dialysis today due to her pain. 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: Yes COVID-19 Screening: Negative COVID-19 COVID-19 Testing Source: last week Patient History Reviewed Nursing Documentation: PMH: Agreed; PSxH: Agreed Nursing Documentation-PMH Hx Hypertension: Yes Hx Cancer: No Hx Gastrointestinal Problems: No Hx Dialysis: Yes Hx Neurological Problems: No Review of Systems All Other Systems: negative except mentioned in HPI Physical Exam Vital Signs Date Time Temp Pulse Resp B/P (MAP) Pulse Ox O2 Delivery O2 Flow Rate FiO2 12/06/20 17:39 98.2 84 18 134/76 (95) 97 Room Air Sp02 EP Interpretation: reviewed, normal General Appearance: no apparent distress, Chronically Ill Head: normocephalic, atraumatic Eyes: bilateral eye PERRL, bilateral eye EOMI ENT: hearing grossly normal, moist mucus membranes Neck: full range of motion, supple Respiratory: lungs clear, normal breath sounds, no rhonchi, no respiratory distress, no retraction, no wheezing, other - Dialysis access right upper chest wall Cardiovascular #1: normal peripheral pulses, regular rate, rhythm, no murmur Gastrointestinal: non tender, soft, non-distended, no guarding Neurologic: alert, oriented x3, no focal defects Skin: normal color, warm/dry Medical Decision Making Diagnostic Impression: Primary Impression: Chest pain Additional Impressions: Hypoxia Missed dialysis ER Course MDM: Differential included but not limited to chronic pain syndrome, ACS, pneumonia, fluid overload, pancreatitis to name a few Clinical course-IV inserted cardiac monitoring pulse oximetry. Patient required 5 L by nasal cannula. Chest x-ray showed resolving bilateral infiltrates. Potassium was 6.0 but mildly hemolyzed. She did miss dialysis today. Due to her hypoxia with mild hyperkalemia. Patient will require admission for observation and dialysis. She did complain of chest pain for the last few days. This seems like a chronic problem troponin was negative. Patient was given aspirin in the ER. Patient will be admitted under Dr. Granger, her primary doctor. Labs - Laboratory Tests Test 12/06/20 18:30 White Blood Count 8.2 K/UL (4.8-10.8) Red Blood Count 4.32 M/UL (4.20-5.40) Hemoglobin 9.2 G/DL (12.0-16.0) L Hematocrit 32.3 % (37.0-47.0) L Mean Corpuscular Volume 75 FL (80-99) L Mean Corpuscular Hemoglobin 21.3 PG (27.0-31.0) L Mean Corpuscular Hemoglobin Concent 28.4 G/DL (32.0-36.0) L Red Cell Distribution Width 22.5 % (11.6-14.8) H Platelet Count 285 K/UL (150-450) Mean Platelet Volume 7.4 FL (6.5-10.1) Neutrophils (%) (Auto) 67.2 % (45.0-75.0) Lymphocytes (%) (Auto) 21.2 % (20.0-45.0) Monocytes (%) (Auto) 6.7 % (1.0-10.0) Eosinophils (%) (Auto) 2.9 % (0.0-3.0) Basophils (%) (Auto) 2.0 % (0.0-2.0) Sodium Level 139 MMOL/L (136-145) Potassium Level 6.0 MMOL/L (3.5-5.1) *H Chloride Level 105 MMOL/L (98-107) Carbon Dioxide Level 23 MMOL/L (21-32) Anion Gap 10 mmol/L (5-15) Blood Urea Nitrogen 37 mg/dL (7-18) H Creatinine 4.0 MG/DL (0.55-1.30) H Estimated Glomerular Filtration Rate 11.4 mL/min (>60) Glucose Level 127 MG/DL (74-106) H Calcium Level 7.3 MG/DL (8.5-10.1) L Total Bilirubin 0.4 MG/DL (0.2-1.0) Aspartate Amino Transferase (AST) 59 U/L (15-37) H Alanine Aminotransferase (ALT) 36 U/L (12-78) Alkaline Phosphatase 431 U/L (46-116) H Troponin I 0.004 ng/mL (0.000-0.056) Pro-B-Type Natriuretic Peptide 5926 pg/mL (0-125) H Total Protein 7.1 G/DL (6.4-8.2) Albumin 2.2 G/DL (3.4-5.0) L Globulin 4.9 g/dL Albumin/Globulin Ratio 0.4 (1.0-2.7) L Lipase 57 U/L (73-393) L Chest x-ray- IMPRESSION: Interstitial opacities, decreased compared to prior exam. This may represent chronic interstitial lung changes versus residual pulmonary vasculature congestion. Plan-admission to the telemetry floor EKG Diagnostic Results Rate: normal Rhythm: NSR ST Segments: no acute changes Other Impression Rate of 79 Last Vital Signs Date Time Temp Pulse Resp B/P (MAP) Pulse Ox O2 Delivery O2 Flow Rate FiO2 12/06/20 17:39 98.2 84 18 134/76 (95) 97 Room Air Disposition: ADMITTED INPATIENT Condition: Serious David Pryor M.D. Dec 06, 2020 18:13
[2020-12-06] MEDS ORDERED: NITRO0.4 SL (18:20)
[2020-12-06] MEDS ORDERED: SENNA LAXATIVE8.6 MG PO (18:20)
--- NOTE | 2020-12-06 18:29 | Diagnostic Imaging Report ---
EXAM: XR Chest, 1 View CLINICAL HISTORY: ABD PAIN TECHNIQUE: Frontal view of the chest. COMPARISON: Chest radiograph on 11/14/2020 FINDINGS: Hardware: Right dual-lumen central venous catheter terminates in the region of the lower SVC. Lungs/pleura: Interstitial opacities, decreased compared to prior exam. No focal consolidation. No pleural effusion or pneumothorax. Heart/mediastinum: Stable enlargement of the cardiac silhouette. Soft tissues: Unremarkable. Bones: No acute fracture. Upper abdomen: Normal. IMPRESSION: Interstitial opacities, decreased compared to prior exam. This may represent chronic interstitial lung changes versus residual pulmonary vasculature congestion.
[2020-12-06] MEDS ORDERED: traMADol 50mg tab ORAL ONE (18:30)
[2020-12-06 18:41] VITALS: BP 133/69
[2020-12-06 18:52] LABS: EOSINOPHILS % (AUTO) 2.9 % (0.0-3.0); HEMATOCRIT 32.3 % (37.0-47.0); HEMOGLOBIN 9.2 G/DL (12.0-16.0); LYMPHOCYTES % (AUTO) 21.2 % (20.0-45.0); MEAN CORPUSCULAR VOLUME 75 FL (80-99); MONOCYTES % (AUTO) 6.7 % (1.0-10.0); NEUTROPHILS % (AUTO) 67.2 % (45.0-75.0); PLATELET COUNT 285 K/UL (150-450); RED BLOOD COUNT 4.32 M/UL (4.20-5.40); RED CELL DISTRIBUTION WIDTH 22.5 % (11.6-14.8); WHITE BLOOD COUNT 8.2 K/UL (4.8-10.8)
--- NOTE | 2020-12-06 18:55 | NUR ---
ED Nurse Note: per ems, pt from residential. missed dialysis today due to RUQ abd pain/chest pain. pt previously admitted COVID + about a month ago. tested negative at facility last week. pt 72-79% RA O2 sat. pt placed on 5L NC and sat improved to 88-95%. pt oriented to person, time, event. notified.
[2020-12-06 19:03] LABS: ALBUMIN 2.2 G/DL (3.4-5.0); ALBUMIN/GLOBULIN RATIO 0.4 (1.0-2.7); BILIRUBIN,TOTAL 0.4 MG/DL (0.2-1.0); CALCIUM 7.3 MG/DL (8.5-10.1)
[2020-12-06 19:48] VITALS: BP 135/71
--- NOTE | 2020-12-06 20:00 | NUR ---
ED Nurse Note: pulse oximetwerv reading incorrectly, replaced patient o2 saturation 100% on 5L NC
[2020-12-06] MEDS ORDERED: Nitroglycerin Subl 0.4mg tab SL PRN (20:15)
[2020-12-06] MEDS ORDERED: Albuterol 90mcg Inhaler 8gm INH PRN (20:15)
[2020-12-06] MEDS: TraZODone 50mg tab ORAL SCH (20:55)
[2020-12-06] MEDS: Heparin 5000 units/ml inj SUBQ SCH (20:56)
[2020-12-06] MEDS: Milk of Magnesia 30ml Ud ORAL SCH (21:00)
[2020-12-06] MEDS: NovoLOG Insulin Flexpen SUBQ SCH (21:00)
--- NOTE | 2020-12-06 21:00 | NUR ---
ED Nurse Note: milk of magnesia, and insulin not yet avaiable in pyxis
--- NOTE | 2020-12-06 21:00 | NUR ---
ED Nurse Note: bedside glucometer reading 111
[2020-12-06] MEDS ORDERED: Aspirin Baby 81mg ORAL ONE (21:15)
--- NOTE | 2020-12-06 21:27 | NUR ---
spoke with from [facility]-approved to stay at [facility].
--- NOTE | 2020-12-06 21:48 | NUR ---
ED Nurse Note: Mediaction still not available in pyxis
--- NOTE | 2020-12-06 23:19 | NUR ---
HAND-OFF: Report given to MICH Ugarte.
--- NOTE | 2020-12-06 23:30 | NUR ---
NURSE NOTES; received patient on bed, awake and verbally responsive. able to make needs known. on NC @ 3LPM SATING 97-100%. NO SOB. iv access on the right hand saline lock. noted with dialysis access site on the right upper chest. dressing is dry and intact. bus driver/monitor in placed. per timothy RN, ecg is done with SR rhythm; c/o chest pain in ED, NITRO 1 TAB GIVEN no skin issues. no belongings noted. oriented to the room set up. reiterated to call and ask for assistance to prevent fall or injury . bed alarm on. bed locked and in lowest position. vitals of 151/78 71 bpm, 18 cpm, 97.5F, 100 on nc 3 lpm.
[2020-12-06 23:38] VITALS: BP 137/68
--- NOTE | 2020-12-06 23:40 | NUR ---
NURSE NOTES: potassium level of 6.0; per raman snyder " no orders to control the k level hence dialysis will be done tomorrow morning. charge nurse made aware
[2020-12-07] VITALS (8 sets, daily range): BP systolic 134–190; BP diastolic 64–100
[2020-12-07] MEDS: Nitroglycerin Subl 0.4mg tab SL PRN ×3 (00:04→00:16)
--- NOTE | 2020-12-07 00:06 | NUR ---
NURSE NOTES: patient is complaining of chest pain, non- radiating, rated as 8/10. nitro 0.04 MG SL 1 TAB GIVEN ORDERED. BP 0F 151/78 71 BPM. SECURED SAFETY. BED LOCKED AND IN LOWEST POSITION. CALL LIGHT AND LIGHT BUTTON WITHIN EASY REACH. WILL RE-ASSESS AFTER 5 MINS
--- NOTE | 2020-12-07 00:12 | NUR ---
NURSE NOTES: VITALS OF 140/69. PATIENT IS STILL C/O CHEST PAIN RATED 7/10.NON RADIATING. ANOTHER DOSE OF NITRO 0.4MG SL GIVEN ORDERED. WILL RE-ASSESS AND SECURE SAFETY.
--- NOTE | 2020-12-07 00:17 | NUR ---
NURSE NOTES: PATIENT STATES" I FEEL BETTER. MY CHEST PAIN IS GONE". VITALS OF 122/ 78 MMHG, 73 BPM. 98%. TOTAL OF 2 DOSES OF NITROGLYCERIN SL given. CHARGE NURSE MADE AWARE. safety secured.
--- NOTE | 2020-12-07 00:43 | NUR ---
NURSE NOTES: patient is asleep. no facial grimacing or moaning noted. provided rest and comfort. bed locked and in lowest position. call light within easy reach.
--- NOTE | 2020-12-07 05:28 | NUR ---
NURSE NOTES: paged dr. parks to clarify the novolog order. awaiting for call back
[2020-12-07] MEDS: NovoLOG Insulin Flexpen SUBQ SCH ×4 (05:59→20:55)
--- NOTE | 2020-12-07 06:06 | NUR ---
NURSE HAND-OFF REPORT: Important Events on Shift: ADMISSION FROM [facility]. K LEVEL IS 6.0; SCHEDULED TO [facility] TODAY UND[facility]. Patient Status: EPISODE OF CHEST PAIN AT MIDNIGHT; 2 NITROGLYCERIN TABS GIVEN ORDERED. NO CHEST PAIN AT THE MOMENT. Diet: SOFT DIET Pending Orders: DIALYSIS TODAY UNDER [facility] Pending Results/Labs: Pending MD notification:PLEASE FOLLOW WITH DR BROWNE REGARDING THE NOVOLOG ORDER (NEEDS CLARIFICATION). Latest Vital Signs: Temperature 97.7 , Pulse 70 , B/P 134 /79 , Respiratory Rate 20 , O2 SAT 100 , Nasal Cannula, O2 Flow Rate 3.0 . Vital Sign Comment: EKG Rhythm: Sinus Rhythm Rhythm change?: N MD Notified?: - MD Response: Latest Rouse Fall Score: 45 Fall Risk: High Risk Safety Measures: Call light Within Reach, Bed Alarm Zone 1, Side Rails Side Rails x2, Bed position Low and Locked. Fall Precautions: Patient Fall Education Addendum: 12/07/20 at 0618 by Ramandeep Henson RN PATIENT'S DIET IS LOW NA DIET. Addendum: 12/07/20 at 0719 by Ramandeep Henson RN report given to raman rodriguez
--- NOTE | 2020-12-07 07:31 | NUR ---
NURSE NOTES: Received report from MICH Ugarte. Pt is stable and resting in bed. on 3LPM NC unlabored and even respirations. pt has no complaints of CP at this time. ILIANA shafer, Pt refused dressing change last night per MICH Ugarte. Pt R Hand 22g SL. Skin intact. Pt is blind. Pt bed low and locked, call light in reach and bed alarm on. Pt verbalized understanding to call for help.
--- NOTE | 2020-12-07 07:57 | NUR ---
NURSE NOTES: Contacted Dr Jin for pain medication. pt ordered hydrocodone PRN for pain but allergy to acetaminophen. Addendum: 12/07/20 at 0938 by Aide James RN RN Pt said "Pt is not" (allergic). said Ok to give pt. Also ordered sliding scale low dose at this time. order acknowledged and carried out.
--- NOTE | 2020-12-07 08:00 | NUR ---
NURSE NOTES: Upon entering room, found Pt with NC removed by self on top of head. Pt appeared calm, not in distress. Respirations even and unlabored, 16RR. Pt showed 97-100% spo2 on vitals machine. removed Pt from 3LPM NC, O2 turned off. Pt verbalized understanding and to call for help if any SOB experienced.
[2020-12-07] MEDS: Lisinopril 10mg tab ORAL SCH ×2 (08:45→13:04)
[2020-12-07] MEDS: Docusate 100mg cap ORAL SCH ×2 (08:51→17:35)
[2020-12-07] MEDS: Lactulose 20gm/30ml UDC ORAL SCH (08:51)
[2020-12-07] MEDS: Sennosides 8.6mg tab ORAL SCH (08:52)
[2020-12-07] MEDS: Nephrovite tab (Rena-Vite) ORAL SCH (08:52)
[2020-12-07] MEDS: Aspirin Baby 81mg ORAL SCH (08:52)
[2020-12-07] MEDS: Zinc Sulfate 220mg ORAL SCH (08:52)
[2020-12-07] MEDS: Vitamin D 400 units TAB ORAL SCH (08:52)
[2020-12-07] MEDS: Heparin 5000 units/ml inj SUBQ SCH ×2 (08:53→20:55)
[2020-12-07] MEDS ORDERED: Heparin Sod 1000 units/ml 10ml IV PRN (10:40)
--- NOTE | 2020-12-07 11:37 | NUR ---
CASE MANAGEMENT: INITIAL REVIEW 12/06/2020 61 YO F BIBA FROM [facility] CC: ABD PAIN PMHx: ESRD. HD MWF. ANEMIA. DM. CHRONIC PANCREATITIS. SI:CP. HYPOXIA. MISSED HD VS: T 98.2 HR 84 RR 18 B/P 134/76 SATS 97% ON RA LABS: K 6 BUN 37 CR 4 GLU 127 CA 7.3 AST 59 ALP 431 LIPASE 57 IS: TRAMADOL PO X1 NORVASC PO X1 PATIENT ADMITTED TO TELE 12/06/2020 @ 2140 DCP: SNF CONCURRENT REVIEW FOR 12/07/2020 SI:CP. HYPOXIA. MISSED HD VS: T 96.6 HR 71 RR 18 B/P 176/93 SATS 99% ON RA LABS: GLU 107 IS:TRAZODONE PO QHS ASA PO QD LACTULOSE PO QD LISINOPRIL PO QD INSULIN ASPART SUBQ AC/HS RENVELA PO TID TELE DCP: [facility] PLAN OF CARE: HD TODAY
--- NOTE | 2020-12-07 12:23 | NUR ---
RD ASSESSMENT & RECOMMENDATIONS SEE CARE ACTIVITY FOR COMPLETE ASSESSMENT DAILY ESTIMATED NEEDS: Needs based on ESRD, HD, underweight/ 39kg 30-40 kcals/kg 0941-3362 total kcals 1.2-1.8 g protein/kg 47-70 g total protein 1L fluid restriction per MD NUTRITION DIAGNOSIS: Increased kcal/prot intake needs R/T ESRD, underweight status as evidenced by pt is HD dep, pt is 88% IBW, BMI of 17.2, underweight BMI per guidelines. CURRENT DIET:Renal PO DIET RECOMMENDATIONS: RENAL, texture as tolerated ADDITIONAL RECOMMENDATIONS: * Daily calibrated bedscale wt * Monitor PO intake closely * Nepro BID at this time, monitor need to increase (425kcal/19g prot each) * Nephrovite x 1 .
--- NOTE | 2020-12-07 12:57 | NUR ---
NURSE NOTES: HD complete by [facility] nephrology, 2.5L removed.
--- NOTE | 2020-12-07 12:57 | NUR ---
NURSE NOTES: Pt blood pressure 173/90 after HD. Giving morning BP medication.
--- NOTE | 2020-12-07 14:14 | NUR ---
NURSE NOTES: Pt changed BM x1 at this time. pt vitals taken at this time. Pt remains stable on RA titration.
[2020-12-07] MEDS: Minoxidil 2.5mg tab ORAL SCH ×3 (16:34→20:53)
--- NOTE | 2020-12-07 17:43 | NUR ---
NURSE HAND-OFF REPORT: Important Events on Shift: Pt HD removed 2.5L fluid// BM x3// blood pressure remained high despite scheduled BP meds and HD, contacted [facility] for PRN, new scheduled med order // fluid restriction// on RA now Patient Status: fc, stable Diet: renal , low sodium Pending Orders: Pending Results/Labs: Pending MD notification: Latest Vital Signs: Temperature 98.1 , Pulse 85 , B/P 174 /89 , Respiratory Rate 17 , O2 SAT 98 , Nasal Cannula, O2 Flow Rate 3.0 . Vital Sign Comment: EKG Rhythm: Sinus Rhythm Rhythm change?: N MD Notified?: - MD Response: Latest Rouse Fall Score: 15 Fall Risk: Low Risk Safety Measures: Call light Within Reach, Bed Alarm Zone 1, Side Rails Side Rails x2, Bed position Low and Locked. Fall Precautions: Yellow Socks Yellow Gown Door Sign Patient Fall Education Report to be given.
--- NOTE | 2020-12-07 18:11 | NUR ---
NURSE NOTES: Contacted Primary MD regarding Pt elevated BP again despite new medication, awaiting call back. pt has no CP or complaint of distress at this time. stable on RA Addendum: 12/07/20 at 1859 by Aide James RN RN order acknowledged and carried out. Pt BP at this time 178/93 Addendum: 12/07/20 at 1916 by Aide James RN RN Pt stable and plan of care endorsed to MICH Mustafa.
--- NOTE | 2020-12-07 19:30 | NUR ---
NURSE NOTES: Patient received from Aide James RN. patient alert and oriented x3 with confusion at times. Saturating well on room room air. No c/o pain and no s/s of respiratory distress. Breathing even and unlabored. IV site patent and intact SL. Right upper chest permcath present for dialysis. Bed in lowest position and locked. Call light and bedside table within reach.
[2020-12-07] MEDS: TraZODone 50mg tab ORAL SCH (20:53)
[2020-12-07] MEDS: Milk of Magnesia 30ml Ud ORAL SCH (20:54)
[2020-12-07] MEDS: HYDROcodone/Acetamin 5/325 tab ORAL PRN (20:56)
[2020-12-08] VITALS: BP 106/56
[2020-12-08 04:00] VITALS: BP 91/57
[2020-12-08 05:00] VITALS: BP_SYST 100; BP_SYST 107; BP_DIAS 48; BP_DIAS 54
[2020-12-08] MEDS: NovoLOG Insulin Flexpen SUBQ SCH ×3 (05:30→16:30)
--- NOTE | 2020-12-08 06:10 | NUR ---
NURSE HAND-OFF REPORT: Important Events on Shift:[High BP at change of shift, resolved during this shift] Patient Status: [FC, A&Ox3] Diet: [Low NA and Renal Diet, Fluid restriction of 1000ml] Pending Orders: [] Pending Results/Labs:[] Pending MD notification:[] Latest Vital Signs: Temperature 98.6 , Pulse 71 , B/P 91 /57 , Respiratory Rate 16 , O2 SAT 99 , Nasal Cannula, O2 Flow Rate 3.0 . Vital Sign Comment: [] EKG Rhythm: Sinus Rhythm Rhythm change?: N MD Notified?: - MD Response: Latest Rouse Fall Score: 15 Fall Risk: Low Risk Safety Measures: Call light Within Reach, Bed Alarm Zone 1, Side Rails Side Rails x2, Bed position Low and Locked. Fall Precautions: Yellow Socks Yellow Gown Door Sign Patient Fall Education Report given to []. Addendum: 12/08/20 at 0787 by Ramsey Peraza RN Patient report given to Katheryn Saleem
--- NOTE | 2020-12-08 07:25 | NUR ---
NURSE NOTES: Received patient awake, alert and oriented x4. Able to verbalize needs. patient presenting with impaired vision. requiring reorientation and directions. on room room air. . No c/o pain and no s/s of respiratory distress. Breathing even and unlabored. PIV site patent and intact SL. Right upper chest permacath present for hemodialysis. On fluid restrictions 1L and verbalized understanding. Bed in lowest position and locked. siderails are upx3. bed brakes and locked. Call light and bedside table within reach.
[2020-12-08 08:00] VITALS: BP 115/59
[2020-12-08] MEDS: Lactulose 20gm/30ml UDC ORAL SCH (08:42)
[2020-12-08] MEDS: Heparin 5000 units/ml inj SUBQ SCH (08:43)
[2020-12-08] MEDS: Sennosides 8.6mg tab ORAL SCH (08:43)
[2020-12-08] MEDS: Vitamin D 400 units TAB ORAL SCH (08:44)
[2020-12-08] MEDS: Zinc Sulfate 220mg ORAL SCH (08:44)
[2020-12-08] MEDS: Nephrovite tab (Rena-Vite) ORAL SCH (08:44)
[2020-12-08] MEDS: Docusate 100mg cap ORAL SCH (08:45)
[2020-12-08] MEDS: Lisinopril 10mg tab ORAL SCH (08:45)
[2020-12-08] MEDS: Aspirin Baby 81mg ORAL SCH (08:45)
[2020-12-08] MEDS: Minoxidil 2.5mg tab ORAL SCH (08:46)
[2020-12-08 08:53] LABS: CALCIUM 7.7 MG/DL (8.5-10.1); CREATININE 3.3 MG/DL (0.55-1.30); POTASSIUM 4.4 MMOL/L (3.5-5.1)
--- NOTE | 2020-12-08 10:14 | Discharge Summary ---
DATE OF ADMISSION: 12/06/2020 DATE OF DISCHARGE: 12/08/2020 PERTINENT HISTORY: The patient is a 61-year-old lady on hemodialysis via right-sided catheter. She presents with left-sided chest pain and missed her outpatient dialysis session. PERTINENT PHYSICAL FINDINGS: LUNGS: Clear. HEART: Regular rhythm. No murmur. ABDOMEN: Soft without organomegaly. EXTREMITIES: No edema. COURSE IN THE HOSPITAL: The patient had hyperkalemia from missed dialysis and receives dialysis via the catheter. Serial troponins showed no evidence of acute myocardial infarction. She had a generalized weakness and chest wall tenderness consistent with musculoskeletal pain in the left chest, this was explained to the patient. She was given symptomatic care. PHYSICAL EXAMINATION: GENERAL: On the day of discharge, she is alert. VITAL SIGNS: Stable. LUNGS: Clear. CHEST: There was some tenderness to light palpation of the left chest wall. HEART: Regular rhythm. ABDOMEN: Soft. EXTREMITIES: No edema. CONDITION: She was discharged back to long term facility in stable condition. FINAL DIAGNOSES: 1. Hyperkalemia from missed dialysis. 2. Left-sided musculoskeletal chest pain likely costochondritis. 3. End-stage renal disease. 4. Diabetes. 5. Moderate protein-calorie malnutrition. 6. Hypertension. DISCHARGE DISPOSITION: Back to the [facility] on a renal and diabetic diet. MEDICATIONS: Per the discharge medication list. FOLLOWUP: Followup by Dr. Granger. John Rabago M.D. DR: David JOB#: [id number] CC:
--- NOTE | 2020-12-08 10:18 | NUR ---
NURSE NOTES: SPOKE WITH MARY JO @ [facility]. CALLED [facility] TO NOTIFY REGARDING DISCHARGE. AWAITING FOR THE CM FOR TRANSFER REPORT SHEET. WILL CONT TO MONITOR. Addendum: 12/08/20 at 1041 by VELASQUEZ HERNANDEZ LVN CALLED [facility] FOR 1400H ETA. WILL CONT TO MONITOR.
[2020-12-08 12:00] VITALS: BP 102/56
[2020-12-08] MEDS: HYDROcodone/Acetamin 5/325 tab ORAL PRN (12:06)
[2020-12-08 15:45] VITALS: BP 102/60
--- NOTE | 2020-12-08 16:44 | NUR ---
NURSE NOTES: DISCHARGED TO [facility]. PERSONAL BELONGINGS NOTED. REMOVED PIV ACCESS. B/P 99/68; HR 65. PATIENT PERMACATH INPLACED RIGHT UPPERCHEST. NO ACUTE RESP DISTRESS NOTED. REPORT GIVEN TO EDD CAMARGO @ [facility]. LEFT VOICEMESSAGE TO YOLA, GRANDCHILD. 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
--- NOTE | 2020-12-09 15:29 | History and Physical Report ---
DATE OF ADMISSION: 12/06/2020 This is an H and P for Dr. Conner. CHIEF COMPLAINT AND REASON FOR HOSPITALIZATION: The patient is a 61-year-old lady with diabetes, hypertension, end-stage renal disease, who has had left chest pain. HISTORY OF PRESENT ILLNESS: The patient dialysis via a PermCath about a month ago. 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 She has a sedentary lifestyle, no exertional angina. There is a history of COVID-19 pneumonia, recovered recently. ALLERGIES: morphine, but she denies. HABITS: She is a nonsmoker. SOCIAL HISTORY: Lives in an [facility]. MEDICATIONS: Medications at the [facility] are listed on the computer and include albuterol inhalation, amlodipine, ascorbic acid, aspirin, Dulcolax, clonidine, cranberry, DSS, gabapentin, hydralazine, Branch, sliding-scale insulin, lactulose, Synthroid, Lidoderm patch, Zestril, milk of magnesia, midodrine, nifedipine, nitroglycerin, Protonix, senna, sevelamer, tramadol, trazodone, Nephro-Elliot, vitamin D, and zinc. REVIEW OF SYSTEMS: HEAD, EYES, EARS, NOSE, AND THROAT: The patient is with poor vision . ENDOCRINE: Diabetes and hypothyroidism. PULMONARY: No asthma, TB, or chronic cough. CARDIAC: AR or angina in the past. GASTROINTESTINAL: History of gastritis, on PPI. No GI bleed. GENITOURINARY: No dysuria. . NEUROLOGIC: . PHYSICAL EXAMINATION: GENERAL: The patient is lady, lying in bed, in no acute distress. VITAL SIGNS: Temperature 96.6, heart rate 71, respirations 18, blood pressure 176/99. HEAD, EYES, EARS, NOSE, AND THROAT: Sclerae are nonicteric. Ocular motions intact in all directions. The patient's oral mucosa is moist. NECK: No adenopathy. CHEST: chest PermCath. LUNGS: Clear. HEART: Regular rhythm. No murmur. CHEST WALL: Very tender to light palpation on the left chest. ABDOMEN: Soft without organomegaly or masses. EXTREMITIES: No edema, cyanosis, or clubbing. LABORATORY AND DIAGNOSTIC DATA: Pertinent labs show white count of 8.2, hemoglobin 9.3, sodium 139, potassium 6, BUN 37, creatinine 4, calcium 7.3. Troponin 0.04. BNP 5926. Chest x-ray is done, showing interstitial opacities, decreased compared to prior exam. IMPRESSION: 1. Chest pain, costochondritis. 2. End-stage renal disease. 3. Congestive heart failure, acute on chronic. 4. Hypertensive cardiovascular disease. 5. Diabetes. PLAN: My plan will be to give the patient symptomatic care. Dialysis hyperkalemia. Repeat troponin. John Rabago M.D. DR: MARY JOB#: [id number] CC:
--- NOTE | 2020-12-11 01:59 | Cardiology Report ---
APPROVED REPORT EKG Measurement Heart [id number] <Conclusion> Normal sinus rhythm Low voltage QRS Borderline ECG
== END 2020-12-08 16:38 | DRG 425 ==
LOC: EDBD 17:44 → EMR 18:26 → 2E 21:40 → EDBEDREQ 21:47
PROC: 5A1D70Z Performance of Urinary Filtration, Intermittent, Less than 6 Hours Per Day (ICD-10-PCS; principal; 2020-12-07)
DX: E87.5 Hyperkalemia (principal); M94.0 Chondrocostal junction syndrome [Tietze]; I13.2 Hypertensive heart and chronic kidney disease with heart failure and with stage 5 chronic kidney disease, or end stage renal disease; E11.22 Type 2 diabetes mellitus with diabetic chronic kidney disease; N18.6 End stage renal disease; I50.9 Heart failure, unspecified; Z99.2 Dependence on renal dialysis; Z91.15 Patient's noncompliance with renal dialysis; E44.0 Moderate protein-calorie malnutrition; Z79.82 Long term (current) use of aspirin; Z79.4 Long term (current) use of insulin
CPT/HCPCS: 36415; 71045; 80048; 80053; 82962; 83690; 83880; 84484; 85025; 86706; 93005; 99285; J1815